=== PATIENT | male | born 1940 | race Caucasian/White ===

== ENCOUNTER 2025-02-01 00:11 | Inpatient (IN) | payer MEDICARE, MEDICAID, SELFPAY ==
[2025-02-01] VITALS (16 sets, daily range): BP systolic 95–173; BP diastolic 61–100; PULSE 58–73; RESP 15–20; TEMP 36.2–36.9; O2SAT 94–99; BMI 18.8; BMI 17.2
--- NOTE | 2025-02-01 00:21 | EKG12_ITS ---
Test Reason : CP Blood Pressure : */* mmHG Vent. Rate : 65 BPM Atrial Rate : 65 BPM P-R Int : 214 ms QRS Dur : 104 ms QT Int : 358 ms P-R-T Axes : * -41 -77 degrees QTcB Int : 372 ms Critical Test Result: STEMI Sinus rhythm with 1st degree A-V block Left axis deviation ST elevation consider lateral injury or acute infarct ACUTE MS / STEMI Abnormal ECG Confirmed by Zion Stokes ([id number]), editor managing newspaper ROHAN SALINAS ([id number]) on 02/01/2025 10:26:03 AM Referred By: Confirmed By: Zion Stokes
--- NOTE | 2025-02-01 00:22 | EDS_ITS ---
HPI History of Present Illness Chief Complaint: Chest Pain Informant: patient and EMS Narrative Narrative: 84-year-old male presenting from detention about 4-4.5 hours after he states chest heaviness started, inferior retrosternal without radiation to back, jaw, neck, arms, or any other symptoms; he denies any dyspnea, nausea, diaphoresis, focal neurologic symptoms. He states he was sitting in his chair when it started and it did not go away. EMS gave him aspirin as well as nitroglycerin, they state that when they evaluated him, his pain was 3/10. Now the patient states his discomfort is resolved. EMS states the patient has appeared well to them with stable vital signs. [facility] Medical History Personal history of COVID-19 Benign prostatic hyperplasia with lower urinary tract symptoms Bilateral inguinal hernia without obstruction or gangrene Essential (primary) hypertension Anemia, unspecified Repeated falls Muscle weakness (generalized) Generalized anxiety disorder Major depressive disorder, recurrent, unspecified Dementia in other diseases classified elsewhere, mild, with anxiety Abnormal weight loss Other specified hearing loss, unspecified ear Legal blindness, as defined in [place] Exudative age-related macular degeneration, right eye, stage unspecified Insomnia, unspecified Hypo-osmolality and hyponatremia Vitamin B12 deficiency anemia, unspecified Iron deficiency anemia, unspecified Difficulty in walking, not elsewhere classified Other halfway (current) drug therapy Encounter for screening for depression Dysphagia, oropharyngeal phase Unspecified dementia, moderate, with agitation Home Medications ?Medication ?Instructions ?Recorded ?Last Taken ?Type acetaminophen 500 mg tablet 500 mg PO Q6H PRN fever or pain 02/01/25 Unknown History (Acetaminophen Extra Strength) bisacodyl 10 mg rectal suppository 10 mg FL DAILY PRN constipation 02/01/25 Unknown History (Dulcolax (bisacodyl)) cholecalciferol (vitamin D3) 50 50 mcg PO DAILY Unknown History mcg (2,000 unit) capsule cyanocobalamin (vitamin B-12) 500 500 mcg PO DAILY 02/17 Unknown History mcg tablet lidocaine HCl 4 % topical pads 1 pad topical DAILY PRN PRN pain 02/01/25 Unknown History magnesium hydroxide 400 mg/5 mL 30 ml PO DAILY PRN con stipation 02/01/25 Unknown History oral suspension (Milk of Magnesia) potassium chloride 10 mEq 10 meq PO DAILY 02/01/25 Unk nown History tablet,extended release sertraline 25 mg tablet 25 mg PO QHS 02/01/25 Unknow n History sertraline 50 mg tablet 50 mg PO DAILY 02/01/25 Unkn own History tamsulosin 0.4 mg capsule 0.8 mg PO QHS 02/01/25 Unkno wn History Allergy/AdvReac Type Severity Reaction Status Date / Time No Known Allergies Allergy Verified 02/01/25 00:12 Social History (Updated 02/01/25 @ 00:[address] Anthony Pozo MD) housing: detention Smoking Status: Never smoker additional social history: ambulates w/ walker ROS ROS ED Constitutional Constitutional ED: Denies chills or fever(s) Eyes Eyes: Denies change in vision or diplopia ENT ENT ED: Denies rhinorrhea or sore throat Cardiovascular Cardiovascular: Reports as per HPI and chest pain; Denies palpitations or radiating jaw, neck or arm pain Respiratory/Chest Respiratory/Chest: Denies cough or dyspnea Gastrointestinal Gastrointestinal: Denies abdominal pain, diarrhea, nausea or vomiting Genitourinary Genitourinary ED: Denies dysuria or hematuria Musculoskeletal Musculoskeletal: Denies back pain or neck pain Integumentary Denies abscess or rash Neurologic Neurologic: Denies headache(s), paresthesias or weakness Psychiatric Psychiatric: Denies anxiety or suicidal thoughts EXAM Physical Exam Const Vital Signs: 02/01/25 00:12 02/01/25 00:16 02/01/25 00:21 Temperature 97.1 F L Temperature Source Axillary Pulse Rate 73 Respiratory Rate 18 Respiratory Effort Normal Non-Labored Blood Pressure 167/94 H Blood Pressure Mean 118 Pulse Ox 97 98 Oxygen Delivery Method Room Air Room Air 02/01/25 00:27 Temperature Temperature Source Pulse Rate 65 Respiratory Rate Respiratory Effort Blood Pressure 165/94 H Blood Pressure Mean Pulse Ox Oxygen Delivery Method Positive well nourished and well developed General Appearance ED: well developed and NAD HEENT Reports moist mucous membranes normocephalic and atraumatic Eyes PERRL and EOMs intact bilaterally Neck full ROM and supple Resp normal respiratory effort and clear to auscultation bilaterally Cardio regular rate, regular rhythm and no murmurs GI non-tender and non-distended Auscultation: normoactive bowel sounds Palpation: soft Back/Spine no CVA tenderness General Back: other FROM Extremity normal to inspection General Extremety ED: Negative for edema, pulses abnormal or tenderness General Extremity: Negative for edema or pulses abnormal Neuro oriented x3, CN's II-XII intact bilaterally and no sensory deficits noted Sensorium / Orientation: awake, alert, oriented to person, oriented to place and oriented to time Motor Exam: strength 5/5 throughout Psych mental status grossly normal Skin no rashes or lesions noted and no wounds Heart Score History: Highly Suspicious ECG: Significant ST-Depression Age: >/= 65 years Risk Factors: 1 or 2 Risk Factors (htn) Troponin: >1 - <3 Normal Limit Score: 8 MDM MDM MDM Narrative Medical decision making narrative: EKG is concerning for STEMI laterally, with less than [address] elevation in 1 and aVL, along with reciprocal depressions in the inferior leads at around 1 mm, and in leads V1-4 at anywhere from 0.5-1 mm. This was difficult to see on the prehospital EKG due to artifact, so prehospital STEMI was not called, but upon evaluating the patient obtaining an EKG in the ED, I discussed with the STEMI rolling chair pusher Dr. Leon, who reviewed the EKG that I sent to him, and given that the patient is pain-free, states that with less than [address] elevation in the limb leads does not meet criteria for STEMI at this time, he would recommend t reating him as an NSTEMI with a heart cath in the morning, and at this time placing him on heparin drip, and loading with Brilinta which we did in addition to Nitro-Bid paste. Initial troponin is up a little, the rest of his labs are noted he is not anemic. 1 view chest x-ray my interpretation shows nothing acute. Mediastinum does appear to be a little wide but it is a portable film and he does not have any symptoms suspicious of an aortic dissection. His blood pressure is elevated but not emergently so in the 160s. He is stable clinically hemodynamically discussed with hospitalist for admission to ICU. Lab Data Attestation: I reviewed the patient's lab results. Labs: Laboratory Results - last 24 hr 02/01/25 00:17 WBC 7.5 RBC 4.75 Hgb 14.4 Hct 43.4 MCV 91.4 MCH 30.3 MCHC 33.2 RDW Std Deviation 48.5 H RDW Coeff of Tez 14.4 Plt Count 173 MPV 9.6 Immature Gran % (Auto) 0.800 Neut % (Auto) 79.6 H Lymph % (Auto) 9.4 L [place] % (Auto) 8.8 Eos % (Auto) 0.9 Baso % (Auto) 0.5 Absolute Neuts (auto) 5.9 Absolute Lymphs (auto) 0.70 L Nucleated RBC % 0 PT 13.5 INR 1.0 APTT 35.6 Sodium 132 L Potassium 4.5 Chloride 96 L Carbon Dioxide 23.4 Anion Gap 12 BUN 9 Creatinine 0.80 Estim Creat Clear Calc 51.43 Est GFR (MDRD) Non-Af 87 BUN/Creatinine Ratio 11.3 Glucose 136 H Calcium 9.4 Troponin T High Sens 145 H* Rhythm Strip Rhythm Strip: Sinus Rhythm Rate: 65 Ectopy: None EKG Initial EKG: Attestation: I personally reviewed and interpreted this EKG as follows: Interpretation: Sinus Rhythm, S-T Elevation (I, aVL < 1mm) and S-T Depression (inf 1mm; V1-4 0.5-1mm) Prior EKG tracings: not available for review Prior: No Prior Management Discussion w/another healthcare provider: Hospitalist and Veterinary Virologist (cardiology Edward) Critical Care Time Critical Care Time: Yes Critical care time (excluding procedures): 30-74 minutes (41 min), Including time spent:, Discussing w/Patient &/or Family/Postal Clerk, Discussing w/Consultants, Arranging Admission or Transfer and Performing Direct Patient Care at Bedside Discharge Plan Triage Chief Complaint: Chest Pain ED Provider: Anthony Pozo Dx/Rx/DC Orders Clinical Impression: Non-ST elevation ID (NSTEMI) Prescriptions: No Action potassium chloride 10 mEq tablet extended release 10 meq PO DAILY sertraline 25 mg tablet 25 mg PO QHS tamsulosin 0.4 mg capsule 0.8 mg PO QHS sertraline 50 mg tablet 50 mg PO DAILY bisacodyl [Dulcolax (bisacodyl)] 10 mg suppository 10 mg FL DAILY PRN (Reason: constipation) lidocaine HCl 4 % pads, medicated 1 pad topical DAILY PRN PRN (Reason: pain) magnesium hydroxide [Milk of Magnesia] 400 mg/5 mL suspension 30 ml PO DAILY PRN (Reason: constipation) acetaminophen [Acetaminophen Extra Strength] 500 mg tablet 500 mg PO Q6H PRN (Reason: fever or pain) cyanocobalamin (vitamin B-12) 500 mcg tablet 500 mcg PO DAILY cholecalciferol (vitamin D3) 50 mcg (2,000 unit) capsule 50 mcg PO DAILY Primary Care Provider: Laly Cason Referrals: Sha Hancock MD [Non-Staff] - Print Language: Syriac
[2025-02-01] MEDS: Nitroglycerin Oint 1 INCH PACKET TD (00:27)
--- NOTE | 2025-02-01 00:30 | RAD_ITS ---
PROCEDURE: CHEST 1 VIEW (PORTABLE) 02/01/2025 REASON FOR EXAM: CHEST PAIN TECHNIQUE: Frontal view of the chest. FINDINGS: Poor inspiratory effort results in parenchymal crowding and limits evaluation. Patchy opacity in the right mid lung is concerning for airspace infiltrates. The heart is at the upper limit of normal in size. Severe degenerative changes are noted within both shoulders. RAD/Chest 1 View (Portable) IMPRESSION: As above. Reading Location: [id number]
[2025-02-01 00:31] LABS: Hematocrit 43.4 % (40-54); Hemoglobin 14.4 g/dL (13.0-16.5); Immature Granulocytes Count 0.060 X10^3/uL (0.0-0.0); Mean Corp Hgb Conc 33.2 g/dL (32-36); Mean Corpuscular Volume 91.4 fL (80-94); Mean Platelet Vol. 9.6 fl (6.2-12.0); NRBC Flagged by Analyzer 0 % (0-5); Platelet Count 173 K/mm3 (150-450); RBC Distribution Width CV 14.4 % (11.6-14.6); RBC Distribution Width SD 48.5 fl (35.1-43.9); Red Blood Count 4.75 M/mm3 (4.6-6.2); White Blood Count 7.5 K/mm3 (4.4-11.0)
[2025-02-01] MEDS: HEPARIN/D5w 25,000 UNITS 25,000 UNITS/250 ML IV.SOLN. 6.3 UNITS CONT INF (00:40)
[2025-02-01] MEDS: Heparin Injection (Vial) 5,000 UNIT/ML VIAL 3000 UNIT IV (00:40)
[2025-02-01] MEDS: TICAGRELOR 90 MG TABLET 180 MG PO (00:40)
[2025-02-01 00:52] LABS: Anion Gap 12 (5-15); BUN 9 mg/dL (4-19); BUN/Creat Ratio 11.3 RATIO (10-20); Calcium,Total 9.4 mg/dL (7.6-11.0); Carbon Dioxide 23.4 mmol/L (21.0-32.0); Chloride 96 mmol/L (98-108); Estimated Creatinine Clearance 51.43 ml/min (50-250); Glucose 136 mg/dL (70-99); Potassium 4.5 mmol/L (3.3-5.1); Troponin T High Sensitivity 145 ng/L (<=22)
[2025-02-01 00:59] LABS: Partial Thromboplast Time 35.6 Seconds (24.1-36.2); Prothrombin Time (Protime)PT. 13.5 SECONDS (11.7-14.9)
--- OUTSIDE RECORDS SUMMARY | 2025-02-01 01:01 | XMS RPT_ITS | CCD ---
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 Name Role Phone Sheets Ella LAZO Unavailable [phone] Sheets Ella LAZO Unavailable [phone] AVA NORRIS Referring Unavailable TORRES ERWIN Primary Care Unavailable CELINA LARA Consulting Unavailable JESSICA EDGE Admitting Unavailable JENA YOUNGBLOOD Attending Unavailable EDWARD HARDIN Attending Unavailable TORRES ERWIN Primary Care Unavailable Medications Completed/Discontinued Medications Medication Drug Class(es) Dates Sig (Normalized) Sig (Original) acetaminophen 325 mg oral tablet (3 sources) Start: 09-29-2021 take 2 tablets by mouth every six hours as needed acetaminophen (TYLENOL) 325 mg tablet Take 2 tablets by mouth every 6 hours as needed for pain. 30 tablet 0 09/29/2021 Active Start: 07-11-2016 take 2 tablets by [facility] every six hours as needed acetaminophen (TYLENOL) 325 mg tablet Take 2 tablets by mouth every 6 hours as needed for Pain. 0 07/11/2016 Active Comment on above: Take 2 tablets by [facility] every 6 hours as needed for Pain. aspirin 325 mg oral tablet (3 sources) Platelet Aggregation Inhibitor, Nonsteroidal Anti-inflammatory Drug take 1 tablet by mouth once daily aspirin 325 mg tablet Take 325 mg by mouth once daily. 0 Active Comment on above: Take 325 mg by mouth once daily. ferrous sulfate 325 mg oral tablet (3 sources) Start: 08-21-19 17 take 1 tablet by mouth twice daily at mealtime ferrous sulfate 325 mg (65 mg iron) tablet Take 1 tablet by mouth twice daily with meals. 60 tablet 2 08/20/2016 Active Comment on above: Take 1 tablet by [facility] twice daily with meals. lisinopril 20 mg oral tablet (4 sources) Angiotensin Converting Enzyme Inhibitor Start: 09-18-19 22 End: 02-29-20 take 1 tablet by mouth once daily lisinopril (ZESTRIL, PRINIVIL) 20 mg tablet Indications: Essential hypertension TAKE 1 TABLET BY MOUTH EVERY DAY 90 tablet 1 02/28/2022 Active Comment on above: TAKE 1 TABLET BY KUNAL TH EVERY DAY melatonin 1 mg oral tablet (3 sources) Start: 02-27-20 take 1 tablet by mouth once daily at bedtime melatonin 1 mg tablet Take 1 tablet by mouth daily at bedtime. 0 02/26/2021 Active Comment on above: Take 1 tablet by kunal th daily at bedtime. polyethylene glycol 3350 [id number] mg powder for oral solution (3 sources) Osmotic Laxative Start: 03-06-20 polyethylene glycol 3350 (MIRALAX, GLYCOLAX) 17 gram packet Take 1 Packet by mouth once daily. Dissolve dose in 4 - 8 ounces of liquid and take as directed. 0 03/06/2021 Active Comment on above: Take 1 Packet by kunal th once daily. Dissolve dose in 4 - 8 ounces of liquid and take as directed. 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; Translations: [Pressure ulcer of unspecified buttock, stage 1] Onset: 02-26-2021 02-27-2021 Chronic Coagulation and hemorrhagic disorders (3 sources) Platelet count below reference range; Translations: [Thrombocytopenia, unspecified] Onset: 02-27-2021 02-27-2021 Chronic E Codes: Fall (1 source) Unspecified fall, initial encounter; Translations: [Fall, initial encounter] Onset: 04-23-2022 Episodic Essential hypertension (6 sources) Essential hypertension; Translations: [Essential (primary) hypertension] Onset: 02-07-2015 Chronic Fluid and electrolyte disorders (7 sources) Hyponatremia; Translations: [Hypo-osmolality and hyponatremia] Onset: 02-26-2021 02-27-2021 Episodic Hyperplasia of prostate (4 sources) Nocturia due to benign prostatic hypertrophy; Translations: [Benign prostatic hyperplasia with lower urinary tract symptoms] Onset: 04-06-2020 02-27-2021 Chronic Malaise and fatigue (4 sources) Asthenia; Translations: [Weakness] Onset: 02-25-2021 02-27-2021 Episodic Nutritional deficiencies (3 sources) Undernutrition; Translations: [Unspecified protein-calorie malnutrition] Onset: 07-17-2016 02-27-2021 Chronic Other fractures (1 source) Wedge compression fracture of T11-T12 vertebra, initial encounter for closed fracture; Translations: [Compression fracture of T12 vertebra, initial encounter ([facility])] Onset: 04-23-2022 Episodic Other nervous system disorders (1 source) Metabolic encephalopathy; Translations: [Metabolic encephalopathy] Onset: 04-23-2022 Chronic Residual codes; unclassified (1 source) Personal history of other drug therapy; Translations: [COVID-19 vaccine series completed] Onset: 04-23-2022 Episodic Viral infection (1 source) COVID-19; Translations: [COVID-19] Onset: 04-23-2022 Past or Other Problems Problem Classification Problem Date Documented Da te Episodic/Chronic Genitourinary symptoms and ill-defined conditions (3 sources) Microscopic hematuria; Translations: [Other microscopic hematuria] Onset: 07-11-2016 07-11-2016 Episodic Neoplasms of unspecified nature or uncertain behavior (6 sources) Neoplasm of uncertain behavior of skin of foot; Translations: [Neoplasm of uncertain behavior of skin] Onset: 02-26-2021 02-27-2021 Episodic Open wounds of head; neck; and trunk (1 source) Laceration without foreign body of other part of head, initial encounter; Translations: [Facial laceration, initial encounter] Onset: 05-08-2022 Episodic Other skin disorders (3 sources) Eruption; Translations: [Rash and other nonspecific skin eruption] Onset: 02-26-2021 02-27-2021 Episodic Other skin disorders (3 sources) Nail deformity; Translations: [Other nail disorders] Onset: 02-26-2021 02-27-2021 Episodic Other skin disorders (3 sources) H/O: skin disorder; Translations: [Personal history of diseases of the skin and subcutaneous tissue] Onset: 02-26-2021 02-27-2021 Episodic Skull and face fractures (1 source) Fracture of nasal bones, initial encounter for open fracture; Translations: [Open fracture of nasal bone, initial encounter] Onset: 05-08-2022 Episodic Superficial injury; contusion (2 sources) Contusion of scalp, initial encounter; Translations: [Contusion of other part of head, initial encounter] Onset: 05-08-2022 Episodic Urinary tract infections (3 sources) Acute cystitis; Translations: [Acute cystitis without hematuria] Onset: 02-26-2021 02-27-2021 Episodic Results Test Name Value Interpretation Reference Range Facility CT BRAIN WO IVCONon 05-08-20 CT BRAIN WO IVCON * * *Final Report* * * DATE OF EXAM: May 07 2022 11:49PM [facility]504 - CT BRAIN WO IVCON / PROCEDURE REASON: Head trauma, moderate-severe * * * * Physician Interpretation * * * * EXAMINATION: CT CERVICAL SPINE WO IVCON, CT BRAIN WO IVCON, CT FACIAL BONE/CESILIA WO IVCON CLINICAL HISTORY: Spine fracture, cervical, traumatic (accession [id number]), Head trauma, moderate-severe (accession [id number]), Maxillofacial pain (accession [id number]) TECHNIQUE: Serial axial unenhanced images were obtained from the vertex to the foramen magnum. Spiral, high resolution axial unenhanced images were obtained from the skull base to the cervicothoracic junction with sagittal and coronal planar reconstructions. Spiral high resolution axial unenhanced images were also obtained through the facial bones with sagittal and coronal planar reconstructions. Dose-Length Product (DLP): 133.37 (accession [id number]), 993.15 (accession [id number]), 454.02 (accession [id number]) mGy*cm. CT Dose Reduction Employed: No dose reduction techniques were required COMPARISON: 04/17/[address] RESULT: BRAIN: Post-operative change: None. Acute change: No evidence of an acute infarct or other acute parenchymal process. Hemorrhage: No evidence of acute intracranial hemorrhage. Mass Lesion / Mass Effect: There is no evidence of an intracranial mass or extraaxial fluid collection. No significant mass effect. Chronic change: Patchy foci of low attenuation coefficient are present within the supratentorial white matter which is a nonspecific finding but likely represents moderate microvascular ischemia. Parenchyma: There is moderate generalized volume loss. Ventricles: The ventricles are within normal limits of size and configuration for age. Other: Posterior parietal and anterior frontal scalp hematomas without calvarial abnormality. FACIAL BONES: Soft Tissues: Anterior frontal scalp and anterior facial hematoma.. Facial bones: Bilateral mildly depressed nasal bone fractures Orbits: No evidence of an acute fracture. The globes are intact. The soft tissue planes of the orbits are maintained. Paranasal Sinuses: The paranasal sinuses are clear. Foreign Bodies: No evidence of radioopaque foreign bodies. Other: No evidence of a remote fracture. No lytic or blastic process seen in the facial bones. CERVICAL: Counting reference: Craniocervical junction. Anatomic Variants: None. Alignment: There is reversal of usual alignment centered at C5-C7, with 2 to 3 mm anterolisthesis C4 on 5 and C5 on C6, similar to the prior study.. Craniocervical junction: Craniocervical junction is normal. Osseous structures/fracture: No evidence of a lytic or blastic process in the visualized spine. No evidence of acute or chronic fracture. Cervical soft tissues: The paraspinal soft tissues planes are maintained. Degenerative changes: Multilevel degenerative disc and facet changes similar to the prior study, contributing to moderate to severe foraminal stenosis bilaterally C3-4 and on the right C4-5 and mild multilevel central stenosis. IMPRESSION: No acute intracranial abnormality. Posterior parietal scalp hematoma. Anterior frontal scalp and anterior facial soft tissue hematoma. Slightly depressed bilateral nasal bone fractures. No acute cervical abnormality. Degenerative changes described above. Worm Picker: AMANDA Transcribe Date/Time: May 08 2022 12:52A Dictated by : BRIANNE LEÓN MD This examination was interpreted and the report reviewed and electronically signed by: BRIANNE LEÓN MD on May 08 2022 1:04AM EST [id number] [facility] CT CERVICAL SPINE WO IVCONon 05-08-2022 CT CERVICAL SPINE WO IVCON * * *Final Report* * * DATE OF EXAM: May 07 2022 11:49PM [facility] [address] - CT CERVICAL SPINE WO IVCON / PROCEDURE REASON: Spine fracture, cervical, traumatic * * * * Physician Interpretation * * * * EXAMINATION: CT CERVICAL SPINE WO IVCON, CT BRAIN WO IVCON, CT FACIAL BONE/CESILIA WO IVCON CLINICAL HISTORY: Spine fracture, cervical, traumatic (accession [id number]), Head trauma, moderate-severe (accession [id number]), Maxillofacial pain (accession [id number]) TECHNIQUE: Serial axial unenhanced images were obtained from the vertex to the foramen magnum. Spiral, high resolution axial unenhanced images were obtained from the skull base to the cervicothoracic junction with sagittal and coronal planar reconstructions. Spiral high resolution axial unenhanced images were also obtained through the facial bones with sagittal and coronal planar reconstructions. Dose-Length Product (DLP): 133.37 (accession [id number]), 993.15 (accession [id number]), 454.02 (accession [id number]) mGy*cm. CT Dose Reduction Employed: No dose reduction techniques were required COMPARISON: 04/17/[address] RESULT: BRAIN: Post-operative change: None. Acute change: No evidence of an acute infarct or other acute parenchymal process. Hemorrhage: No evidence of acute intracranial hemorrhage. Mass Lesion / Mass Effect: There is no evidence of an intracranial mass or extraaxial fluid collection. No significant mass effect. Chronic change: Patchy foci of low attenuation coefficient are present within the supratentorial white matter which is a nonspecific finding but likely represents moderate microvascular ischemia. Parenchyma: There is moderate generalized volume loss. Ventricles: The ventricles are within normal limits of size and configuration for age. Other: Posterior parietal and anterior frontal scalp hematomas without calvarial abnormality. FACIAL BONES: Soft Tissues: Anterior frontal scalp and anterior facial hematoma.. Facial bones: Bilateral mildly depressed nasal bone fractures Orbits: No evidence of an acute fracture. The globes are intact. The soft tissue planes of the orbits are maintained. Paranasal Sinuses: The paranasal sinuses are clear. Foreign Bodies: No evidence of radioopaque foreign bodies. Other: No evidence of a remote fracture. No lytic or blastic process seen in the facial bones. CERVICAL: Counting reference: Craniocervical junction. Anatomic Variants: None. Alignment: There is reversal of usual alignment centered at C5-C7, with 2 to 3 mm anterolisthesis C4 on 5 and C5 on C6, similar to the prior study.. Craniocervical junction: Craniocervical junction is normal. Osseous structures/fracture: No evidence of a lytic or blastic process in the visualized spine. No evidence of acute or chronic fracture. Cervical soft tissues: The paraspinal soft tissues planes are maintained. Degenerative changes: Multilevel degenerative disc and facet changes similar to the prior study, contributing to moderate to severe foraminal stenosis bilaterally C3-4 and on the right C4-5 and mild multilevel central stenosis. IMPRESSION: No acute intracranial abnormality. Posterior parietal scalp hematoma. Anterior frontal scalp and anterior facial soft tissue hematoma. Slightly depressed bilateral nasal bone fractures. No acute cervical abnormality. Degenerative changes described above. Worm Picker: [email or web address] Transcribe Date/Time: May 08 2022 12:52A Dictated by : BRIANNE LEÓN MD This examination was interpreted and the report reviewed and electronically signed by: BRIANNE LEÓN MD on May 08 2022 1:04AM EST [id number] [facility] CT FACIAL BONE/CESILIA WO IVCON on 05-08-2022 CT FACIAL BONE/CESILIA WO IVCON * * *Final Report* * * DATE OF EXAM: May 07 2022 11:49PM [facility] 0507 - CT FACIAL BONE/CESILIA WO IVCON / PROCEDURE REASON: Maxillofacial pain * * * * Physician Interpretation * * * * EXAMINATION: CT CERVICAL SPINE WO IVCON, CT BRAIN WO IVCON, CT FACIAL BONE/CESILIA WO IVCON CLINICAL HISTORY: Spine fracture, cervical, traumatic (accession [id number]), Head trauma, moderate-severe (accession [id number]), Maxillofacial pain (accession [id number]) TECHNIQUE: Serial axial unenhanced images were obtained from the vertex to the foramen magnum. Spiral, high resolution axial unenhanced images were obtained from the skull base to the cervicothoracic junction with sagittal and coronal planar reconstructions. Spiral high resolution axial unenhanced images were also obtained through the facial bones with sagittal and coronal planar reconstructions. Dose-Length Product (DLP): 133.37 (accession [id number]), 993.15 (accession [id number]), 454.02 (accession [id number]) mGy*cm. CT Dose Reduction Employed: No dose reduction techniques were required COMPARISON: 04/17/[address] RESULT: BRAIN: Post-operative change: None. Acute change: No evidence of an acute infarct or other acute parenchymal process. Hemorrhage: No evidence of acute intracranial hemorrhage. Mass Lesion / Mass Effect: There is no evidence of an intracranial mass or extraaxial fluid collection. No significant mass effect. Chronic change: Patchy foci of low attenuation coefficient are present within the supratentorial white matter which is a nonspecific finding but likely represents moderate microvascular ischemia. Parenchyma: There is moderate generalized volume loss. Ventricles: The ventricles are within normal limits of size and configuration for age. Other: Posterior parietal and anterior frontal scalp hematomas without calvarial abnormality. FACIAL BONES: Soft Tissues: Anterior frontal scalp and anterior facial hematoma.. Facial bones: Bilateral mildly depressed nasal bone fractures Orbits: No evidence of an acute fracture. The globes are intact. The soft tissue planes of the orbits are maintained. Paranasal Sinuses: The paranasal sinuses are clear. Foreign Bodies: No evidence of radioopaque foreign bodies. Other: No evidence of a remote fracture. No lytic or blastic process seen in the facial bones. CERVICAL: Counting reference: Craniocervical junction. Anatomic Variants: None. Alignment: There is reversal of usual alignment centered at C5-C7, with 2 to 3 mm anterolisthesis C4 on 5 and C5 on C6, similar to the prior study.. Craniocervical junction: Craniocervical junction is normal. Osseous structures/fracture: No evidence of a lytic or blastic process in the visualized spine. No evidence of acute or chronic fracture. Cervical soft tissues: The paraspinal soft tissues planes are maintained. Degenerative changes: Multilevel degenerative disc and facet changes similar to the prior study, contributing to moderate to severe foraminal stenosis bilaterally C3-4 and on the right C4-5 and mild multilevel central stenosis. IMPRESSION: No acute intracranial abnormality. Posterior parietal scalp hematoma. Anterior frontal scalp and anterior facial soft tissue hematoma. Slightly depressed bilateral nasal bone fractures. No acute cervical abnormality. Degenerative changes described above. Worm Picker: AMANDA Transcribe Date/Time: May 08 2022 12:52A Dictated by : BRIANNE LEÓN MD This examination was interpreted and the report reviewed and electronically signed by: BRIANNE LEÓN MD on May 08 2022 1:04AM EST [id number] [facility] ED NOTEon 05-08-2022 ED NOTE HNO ID: [id number] Author: Sujey Iqbal RN Service: Emergency Medicine Author Type: Registered Nurse Type: ED Notes Filed: 05/08/2022 1:51 AM Note Text: Report to Corinne at [facility] ED NOTE HNO ID: [id number] Author: Sujey Iqbal RN Service: Emergency Medicine Author Type: Registered Nurse Type: ED Notes Filed: 05/08/2022 1:42 AM Note Text: Pressure dressing applied to top of head and dressing applied to nose. Bacitracin applied to abrasions on face. [facility] ED NOTE HNO ID: [id number] Author: Sujey Iqbal RN Service: Emergency Medicine Author Type: Registered Nurse Type: ED Notes Filed: 05/08/2022 1:13 AM Note Text: [facility] ETA 30 min [facility] ED NOTE HNO ID: [id number] Author: Charleen Goldstein RN Service: Nursing Author Type: Registered Nurse Type: ED Notes Filed: 05/07/2022 10:11 PM Note Text: Pt brought in by EMS for fall at [facility]. Pt was asked how he fell and he states I got too close to the floor It was reported that pt was sitting on bed and went to reach for something then fell, possibly into his dresser. Pt arrives in c-collar with large bandages on head with blood noted. Pt AANDOx4 with complaints of minimal pain in back. [facility] ED PROV NOTEon 05-08-2022 ED PROV NOTE HNO ID: [id number] Author: Edward Hardin MD Service: Emergency Medicine Author Type: Physician Type: ED Provider Notes Filed: 05/08/2022 5:18 AM Note Text: ED Provider Note Patient Name: Dane Martinez : 1940 SERVICE DATE: 05/07/22 History Patient presents with: Fall 81-year-old male patient presents emergency department. Patient's niece was in the room when I assessed him. Patient recently was admitted to nursing facility for care. She states tonight he leaned over the bed to pick something up and fell off of the bed causing lacerations and injuries to his face and head. She states patient is acting in his normal state. He is complaining of not having had a bowel movement today. He is not complaining of severe headache or vomiting. PAST MEDICAL HISTORY Diagnosis Date Anemia HTN (hypertension) 08/12/2014 Left inguinal hernia 04/02/2016 Recurrent right inguinal hernia 04/02/2016 PAST SURGICAL HISTORY Procedure Laterality Date EXC PILONID CYST SMPL 60 HERNIA REPAIR W/MESH 04/09/16 lap bilateral PAST SURGICAL HISTORY OF 2013 right inguinal hernia FAMILY HISTORY Problem Relation Age of Onset Coronary Artery Disease Sister 64 Diabetes Brother Hypertension Sister Hypertension Sister Heart Father Social History Tobacco Use Smoking status: Never Smokeless tobacco: Never Vaping Use Vaping Use: Never used Substance and Sexual Activity Alcohol use: No Drug use: No Sexual activity: Not on file ALLERGIES No Known Allergies Review of Systems Gastrointestinal: Positive for constipation. Skin: Positive for wound. All other systems reviewed and are negative. Physical Exam Vitals BP Pulse Temp Temp src Resp SpO2 Weight Height 05/07/22 2203 05/07/22 2203 05/07/22 2213 05/07/22 2213 05/07/223 05/07/22220205/07/222202 -- 158/91 86 36.3 ?C (97.4 ?F) Axillary 16 100 % 39 kg (86 lb) Physical Exam Vitals and nursing note reviewed. Constitutional: Appearance: He is well-developed. HENT: Head: Eyes: Extraocular Movements: Extraocular movements intact. Cardiovascular: Rate and Rhythm: Normal rate and regular rhythm. Heart sounds: Normal heart sounds. Pulmonary: Effort: No respiratory distress. Breath sounds: Normal breath sounds. Abdominal: General: Bowel sounds are normal. Palpations: Abdomen is soft. Tenderness: There is no abdominal tenderness. Musculoskeletal: General: Normal range of motion. Cervical back: Neck supple. No tenderness. Skin: General: Skin is warm and dry. Neurological: Mental Status: He is alert and oriented to person, place, and time. Mental status is at baseline. Diagnostic Testing ED Labs Ordered and Reviewed - No data to display LAC REPAIR Date/Time: 05/07/2022 11:43 PM Performed by: Edward Hardin MD Authorized by: Edward Hardin MD Risks discussed: Poor cosmetic result and infection Anesthesia (see MAR for exact dosages): Anesthesia method: Local infiltration Local anesthetic: Lidocaine 1% w/o epi Laceration details: Location: Face Face location: Forehead Length (cm): 3 Depth (mm): 3 Repair type: Repair type: Simple Pre-procedure details: Preparation: Patient was prepped and draped in usual sterile fashion Exploration: Hemostasis achieved with: Direct pressure Wound exploration: entire depth of wound probed and visualized Wound extent: no foreign body Contaminated: no Treatment: Area cleansed with: Saline Amount of cleaning: Standard Irrigation solution: Tap water Irrigation volume: 50 Irrigation method: Syringe Visualized foreign bodies/material removed: no Skin repair: Repair method: Sutures Suture size: 5-0 Suture material: Prolene Suture technique: Simple interrupted Number of sutures: 8 Approximation: Approximation: Close Post-procedure details: Dressing: Open (no dressing) LAC REPAIR Date/Time: 05/07/2022 11:51 PM Performed by: Edward Hardin MD Authorized by: Edward Hardin MD Risks discussed: Infection and poor cosmetic result Anesthesia (see MAR for exact dosages): Anesthesia method: Local infiltration Laceration details: Location: Face Face location: Nose Length (cm): 2 Depth (mm): 5 Repair type: Repair type: Simple Pre-procedure details: Preparation: Patient was prepped and draped in usual sterile fashion Exploration: Hemostasis achieved with: Direct pressure Wound extent: no foreign body Contaminated: no Treatment: Area cleansed with: Saline Amount of cleaning: Standard Irrigation solution: Tap water Irrigation volume: 50 Irrigation method: Syringe Visualized foreign bodies/material removed: no Skin repair: Repair method: Sutures Suture size: 3-0 Suture material: Prolene Suture technique: Simple interrupted Number of sutures: 3 Approximation: Approximation: Close Post-procedure details: Dressing: Open (no dressing) Patient tolerance of procedure: Tolerate (more content not included)... [facility] CASE MANAGEMon 04-23-2022 CASE MANAGEM HNO ID: [id number] Author: Gabi Erwin RN Service: ? Author Type: Registered Nurse Type: Care Mgt Progress Note Filed: 04/23/2022 2:11 PM Note Text: CARE MANAGEMENT DISCHARGE NOTE SERVICE DATE: 04/23/2022 SERVICE TIME: 2:09 PM LOS: 4 days Admission Date: 04/17/2022 DISCHARGE ARRANGEMENT (list agency and phone number) Discharge Arrangement: Intermediate Facility Was an expedited discharge program used?: No Provider Name: Emma LEACH CAREGIVER ASSESSMENT: Caregiver is ready, willing and able to meet the patient's needs as recommended by the inter-professional team:: Yes Patient's transition needs and plan for meeting these needs: DC to SNF HANDOFF COMMUNICATION: Handoff to: Primary Care Physician Primary Care Physician Name/Phone: Dr Erwin SOC sent TRANSPORTATION ARRANGEMENTS: Transportation Arrangements: Ambulance Transportation Agency and Phone #:: [facility] [phone] Date of Trip: 04/23/22 Time of Trip: 1430 Type of Service: BLS Non-emergency Is Patient Medicaid Pending?: No Was transportation financial coverage discussed with family?: Patient;Family Provider Network Analyst Location: [place] Destination: [facility] Financial Care Management Responsibility: None ADDITIONAL CONTACT RESOURCES: Irena Molina ([facility]) [phone] (M) Patient/family aware of dc order placed for today. Patient will dc to [facility]. MMT set for 2:30pm. SNF updated with time and orders. RN provided number to call report. CM called and spoke with Irena to notify of DC plan. SIGNATURE: Gabi Erwin RN PATIENT NAME: Dane Cueva Michelle DATE: April 23, 2022 TIME: 2:09 PM PAGER/CONTACT #: [phone] Normal [facility] CASE MANAGEM HNO ID: [id number] Author: Gabi Erwin RN Service: ? Author Type: Registered Nurse Type: Care Mgt Progress Note Filed: 04/23/2022 10:45 AM Note Text: CARE MANAGEMENT PROGRESS NOTE SERVICE DATE: 04/23/2022 SERVICE TIME: 10:43 AM LOS: 4 days IMM Follow Up Copy Given: Yes Copy given to:: Patient Method: In Person SIGNATURE: Gabi Erwin RN PATIENT NAME: Dane Cueva [facility] DATE: April 23, 2022 TIME: 10:43 AM PAGER/CONTACT #: [phone] [facility] CBC panel Auto (Bld)on 04-23 Erythrocyte distribution width (RBC) [Ratio] 14.2 % Normal 11.5-15.0 [facility] Comment on above: Order Comment: Speci men Type: BLOOD SPECIMENOrdering Facility: [facility] Address: [address] [place] [id number] Performed By: #### 5 8410-2 ####[facility]ORATORYCLIA [id number] [address] Hematocrit (Bld) [Volume fraction] 39.0 % Normal 39.0-51.0 [facility] Comment on above: Order Comment: Speci men Type: BLOOD SPECIMENOrdering Facility: [facility] Address: [address] [place] [address] Performed By: #### 5 8410-2 ####[facility]ATORYCL[facility] [id number] [address] [place] Hemoglobin (Bld) [Mass/Vol] 13.6 g/dL Normal 13.0-17.0 [facility] Comment on above: Order Comment: Speci men Type: BLOOD SPECIMENOrdering Facility: [facility] Address: [address] [place] [address] Performed By: #### 5 8410-2 ####[facility]ATORYCLIA [id number] [address] MCH (RBC) [Entitic mass] 31.4 pg Normal 26.0-34.0 [facility] Comment on above: Order Comment: Speci men Type: BLOOD SPECIMENOrdering Facility: [facility] Address: [address] [place] [address] Performed By: #### 5 8410-2 ####[facility]ATORYCLIA [id number] [address] MCHC (RBC) [Mass/Vol] 34.9 g/dL Normal 30.5-36.0 [facility] Comment on above: Order Comment: Speci men Type: BLOOD SPECIMENOrdering Facility: [facility] Address: [address] [place] [address] Performed By: #### 5 8410-2 ####[facility]ATORYCLIA [id number] [address] MCV (RBC) [Entitic vol] 90.1 fL Normal 80.0-100.0 [facility] Comment on above: Order Comment: Speci men Type: BLOOD SPECIMENOrdering Facility: [facility] Address: [address] [place] [address] Performed By: #### 5 8410-2 ####[facility]ORYCLIA [id number] [address] Nucleated RBC (Bld) [#/Vol] 10*3/uL Normal <0.01 [facility] Comment on above: Order Comment: Speci men Type: BLOOD SPECIMENOrdering Facility: [facility] Address: [address] [place] [address] Performed By: #### 5 8410-2 ####[facility]ORYCLIA [id number] [address] Platelet mean volume (Bld) [Entitic vol] 10.4 fL Normal 9.0-12.7 [facility] Comment on above: Order Comment: Speci men Type: BLOOD SPECIMENOrdering Facility: [facility] Address: [address] [place] [address] Performed By: #### 5 8410-2 ####[facility]ATORYCLIA [id number] [address] Platelets (Bld) [#/Vol] 103 10*3/uL Low 150-400 [facility] Comment on above: Order Comment: Speci men Type: BLOOD SPECIMENOrdering Facility: [facility] Address: [address] [place] [address] Result Comment: No c lot detected Performed By: #### 5 8410-2 ####[facility]ATORYCLIA [id number] [address] RBC (Bld) [#/Vol] 4.33 10*6/uL Normal 4.20-6.00 [facility] Comment on above: Order Comment: Speci men Type: BLOOD SPECIMENOrdering Facility: [facility] Address: [address] [place] [address] Performed By: #### 5 8410-2 ####[facility]ATORYCLIA [id number] [address] WBC (Bld) [#/Vol] 2.64 10*3/uL Low 3.70-11.00 [facility] Comment on above: Order Comment: Speci men Type: BLOOD SPECIMENOrdering Facility: [facility] Address: [place] [address] Performed By: #### 5 8410-2 ####[facility] LABORATORYCLIA [id number] [place] [address] [place] CNDSon 04-23-2022 CNDS HNO ID: [id number] Author: France Beck APRN.LUNCHEONETTE OPERATOR Service: Hospital Medicine Author Type: Nurse Practitioner Type: Discharge Summary Filed: 04/23/2022 1:03 PM Note Text: Attestation signed by Jena Youngblood MD at 04/23/2022 5:14 PM Attending Note The patient was not seen or examined by the attending. I have personally reviewed the PA/MULTI SITE LEASING CONSULTANT note. Agree with above assessment and plan. Other additions or changes: None SIGNATURE: Jena Youngblood MD DATE: April 23, 2022 TIME: 5:13 PM DISCHARGE SUMMARY PATIENT NAME: Dane Martinez ADMISSION DATE: 04/17/2022 DISCHARGE DATE: 04/23/2022 ATTENDING PHYSICIAN: Jena Youngblood MD Code Status: Not on file Highest Readmission Risk Score: 28 The 30 day readmissions risk score is derived from an internally validated risk model which evaluates patient level characteristics, utilization history, medication orders and lab results up until the day of discharge. Patients with a score of 40 or above are considered highest risk for readmission. Specific patient level drivers will be listed at the bottom of the summary. Treatment Team: Attending Provider: Jena Youngblood MD Consulting: Celina Lara MD Nurse Practitioner: France Beck APRN.LUNCHEONETTE OPERATOR Nurse Practitioner: Codie Mojica APRN.APOLLO REASON FOR HOSPITALIZATION: Fall, generalized weakness DIAGNOSIS: Principal Problem: Weakness POA: Yes Active Problems: Essential hypertension POA: Yes Hyponatremia POA: Yes Fall POA: Yes T12 compression fracture (HCC) POA: Yes COVID-19 POA: Yes COVID-19 vaccine series completed POA: Yes Resolved Problems: Metabolic encephalopathy POA: Yes OPERATIONS DURING HOSPITALIZATION: None PROCEDURES DURING HOSPITALIZATION: No procedures performed HOSPITAL COURSE: Dane Martinez is a 81 year old male with a past medical history of HTN, RADHA, and BPH who presented to the ER for evaluation after sustaining a mechanical fall at home. He complained of low back pain on presentation so CT lumbar spine obtained and showed moderate compression fx at T12 of indeterminate age. He was incidentally found to be covid positive. CXR with bibasilar atelectasis vs airspace dx. SpO2 high 90's on room air. Admitted to Medicine for further evaluation and management. Back pain was controlled with scheduled tylenol and lidocaine patches. Incidentally noted on COVID PCR+ 04/17/2022. Asymptomatic and not requiring any oxygen. dDimer elevated at [address] chest negative for PE. ID consulted and felt that he would benefit from 3 day course of prophylactic Remdesivir- last dose on 04/20. He remained hemodynamically stable on room air. PT/OT evaluations obtained recommending SNF at discharge. He was found to have mild hyponatremia that is chronic and likely 2/2 low solute diet. Discharged in stable condition to [facility]. Transitions of Care Critical Issues: - BMP in 3 days LABS AND PROCEDURES PENDING AT DISCHARGE: No pending results. PATIENT CONDITION AT DISCHARGE: Stable DISCHARGE DISPOSITION: Intermediate Facility Discharge Physical Exam: VITAL SIGNS: BP 123/61 Pulse (!) 57 Temp 36.5 ?C (97.7 ?F) (Oral) Resp 18 Wt 42.6 kg (93 lb 14.7 oz) SpO2 100% BMI 17.75 kg/m? GENERAL: Alert, no distress, cooperative. He is hard of hearing SKIN: No rashes or lesions. HEAD/SINUSES: No significant findings. AT/NC EYES: Anicteric sclera, EOMI OROPHARYNX: MMM LUNGS: Lungs clear to auscultation, good diaphragmatic excursion, he is speaking in full sentences CARDIAC: Normal S1 and S2; no rubs, murmurs, or gallops ABDOMEN: Abdomen soft, non-tender, BS present EXTREMITIES: No edema or vascular discoloration WOUND/SURGICAL SITE CARE: None DIET: Resume pre-hospital diet ACTIVITY: Resume pre-hospital activity ALLERGIES No Known Allergies DISCHARGE MEDICATION: Current Discharge Medication List START taking these medications lidocaine (SALONPAS) 2 Patches Apply 2 Patches as directed once daily. CONTINUE these medications which have NOT CHANGED aspirin, enteric coated (ASPIRIN, ENTERIC COATED) 81 mg Take 81 mg by mouth once daily. lisinopril (ZESTRIL, PRINIVIL) 20 mg tablet TAKE 1 TABLET BY MOUTH EVERY DAY Qty: 90 tablet Refills: 1 Comments: DX Code Needed PLEASE REFILL. Associated Diagnoses:Essential hypertension tamsulosin (FLOMAX) 0.4 mg TAKE 2 CAPSULES BY MOUTH EVERY DAY Qty: 180 capsule Refills: 1 Associated Diagnoses:Benign prostatic hyperplasia with nocturia polyethylene glycol 3350 (MIRALAX, GLYCOLAX) 17 g Take 17 g by mouth once daily. class=HTML_HHS> Dissolve dose in 4 - 8 ounces of liquid and take as directed. melatonin 1 mg Take 1 mg by mouth daily at bedtime. acetaminophen (TYLENOL) 650 mg Take 650 mg by mouth every 6 hours as needed for pain. Q (more content not included)... [facility] CONSULT PROGon 04-23-2022 CONSULT PROG HNO ID: [id number] Author: Celina Lara MD Service: Infectious Disease Author Type: Physician Type: Consult Progress Note Filed: 04/23/2022 8:56 PM Note Text: INFECTIOUS DISEASE PROGRESS NOTE Patient Name: Dane Martinez INTERVAL HISTORY: Seen and examined Resting comfortably in bed, NAD No fevers or leukocytosis Vitals reviewed and stable On RA, sats >94% Patient Active Hospital Problem List: Weakness (02/25/2021) Essential hypertension (02/07/2015) Hyponatremia (02/26/2021) Fall (04/17/2022) T12 compression fracture (HCC) (04/17/2022) COVID-19 (04/17/2022) COVID-19 vaccine series completed (04/17/2022) Impression/Recommendati ons Principal Problem: Acute metabolic encephalopathy Generalized weakness Hyponatremia T12 compression fracture COVID-19 infection Fully vaccinated for COVID Plan Completed 3 days of ppx Remdesivir Monitor off of antibiotics Urine cultures without growth Follow fevers, counts and O2 status ID will follow. Noted dc plans to SNF- awaiting pre cert MEDICATIONS: reviewed. No current facility-administered medications for this encounter. Facility-Administered Medications Ordered in Other Encounters Medication Dose Route Frequency acetaminophen 1,000 mg tab(s) (TYLENOL) 1,000 mg ORAL q 8 H [START ON 04/24/2022] lisinopril 20 mg tab(s) (ZESTRIL, PRINIVIL) 20 mg ORAL DAILY ferrous sulfate 325 mg tab(s) 325 mg ORAL q 48 H [START ON 04/24/2022] polyethylene glycol 3350 17 g packet (MIRALAX, GLYCOLAX) 17 g ORAL DAILY melatonin 1 mg tab(s) 1 mg ORAL AT BEDTIME [START ON 04/24/2022] aspirin, enteric coated 81 mg tab(s) 81 mg ORAL DAILY lidocaine 4 % 2 Patch (SALONPAS) 2 Patch TRANSDERMAL DAILY [START ON 04/24/2022] enoxaparin 40 mg injection (LOVENOX) 40 mg SUBCUTANEOUS q 24 HR aluminum-magnesium hydroxide-simethicone 200-200-20 mg/5 mL 30 mL (MAALOX,MYLANTA,MAG-AL PLUS) 30 mL ORAL DAILY PRN ondansetron 4 mg tab(s) (ZOFRAN) 4 mg ORAL q 8 H PRN senna-docusate 8.6-50 mg 1 tablet (SENNA-S) 1 tablet ORAL BID PRN traMADol 50 mg tab(s) (ULTRAM) 50 mg ORAL q 8 H PRN [START ON 04/24/2022] lidocaine patch - REMOVE OTHER DAILY And lidocaine - VERIFY PATCH OTHER q 8 H [START ON 04/24/2022] tamsulosin 0.8 mg cap(s) (FLOMAX) 0.8 mg ORAL DAILY PHYSICAL EXAM: Vital signs: BP 123/61 Pulse (!) 57 Temp 36.5 ?C (97.7 ?F) (Oral) Resp 18 Wt 42.6 kg (93 lb 14.7 oz) SpO2 100% BMI 17.75 kg/m? Temp (24hrs), Av.3 ?C (97.4 ?F), Min:36.2 ?C (97.2 ?F), Max:36.5 ?C (97.7 ?F) General: alert, oriented, NAD Lungs: bilaterally clear to auscultation Heart: regular rate and rhythm Abdomen: soft, non tender, non distended, BS+ Extremities: no edema No rashes No joint inflammation Neck supple Lines ok No CVAT Labs: Recent Labs 04/23/22 0602 04/22/22 0447 04/21/22 0553 WBC 2.64* 2.98* 2.64* HB 13.6 13.1 12.5* HCT 39.0 38.5* 36.7* PLT 103* 111* 108* NA 129* 127* 130* K 4.2 4.3 4.4 CHLOR 94* 93* 99 CO2 27 23 21* BUN 10 11 15 CREAT 0.71* 0.62* 0.61* Microbiology data: reviewed Imaging data: reviewed Celina Lara MD [phone] 04/23/2022 12:36 PM Normal [facility] Comprehensive metabolic 2000 panelon 04-23-2022 Albumin [Mass/Vol] 3.5 g/dL Low 3.9-4.9 [facility] Comment on above: Order Comment: Speci grant Type: BLOOD SPECIMEN [facility] Address: [address] [place] [address] Performed By: #### 4 8065-7 #### [facility] CLIA [id number] [address] ALP [Catalytic activity/Vol] 92 U/L Normal 38-113 [facility] Comment on above: Order Comment: Speci men Type: BLOOD SPECIMEN [facility] Address: [address] [place] [address] Performed By: #### 4 8065-7 #### [facility] CLIA [id number] [address] ALT [Catalytic activity/Vol] 17 U/L Normal 10-54 [facility] Comment on above: Order Comment: Speci men Type: BLOOD SPECIMEN [facility] Address: [address] [address] Performed By: #### 4 8065-7 #### [facility] CLIA [id number] [address] [place] [facility] Anion gap [Moles/Vol] 8 mmol/L Low 9-18 [facility] Comment on above: Order Comment: Speci men Type: BLOOD SPECIMEN [facility] Address: [address] [address] Performed By: #### 4 8065-7 #### [facility] CLIA [id number] [address] [place] [address] [place] AST [Catalytic activity/Vol] 32 U/L Normal 14-40 [facility] Comment on above: Order Comment: Speci men Type: BLOOD SPECIMEN [facility] Address: [address] [place] [address] Performed By: #### 4 8065-7 #### [facility] CLIA [id number] [address] [place] [address] [place] Bilirubin [Mass/Vol] 0.5 mg/dL Normal 0.2-1.3 [facility] Comment on above: Order Comment: Speci men Type: BLOOD SPECIMEN [facility] Address: [address] [place] [address] Performed By: #### 4 8065-7 #### [facility] CLIA [id number] [address] [place] Calcium [Mass/Vol] 8.4 mg/dL Low 8.5-10.2 [facility] Comment on above: Order Comment: Speci men Type: BLOOD SPECIMEN [facility] Address: [address] [address] Performed By: #### 4 8065-7 #### [facility] CLIA [id number] [address] [place] [address] [place] Chloride [Moles/Vol] 94 mmol/L Low 97-105 [facility] Comment on above: Order Comment: Speci men Type: BLOOD SPECIMEN [facility] Address: [address] [address] Performed By: #### 4 8065-7 #### [facility] CLIA [id number] [address] CO2 [Moles/Vol] 27 mmol/L Normal 22-30 [facility] Comment on above: Order Comment: Speci men Type: BLOOD SPECIMEN [facility] Address: [address] [place] [address] Performed By: #### 4 8065-7 #### [facility] CLIA [id number] [address] Creatinine [Mass/Vol] 0.71 mg/dL Low 0.73-1.22 [facility] Comment on above: Order Comment: Speci men Type: BLOOD SPECIMEN [facility] Address: [address] [place] [address] Performed By: #### 4 8065-7 #### [facility] CLIA [id number] [address] ESTIMATED GLOMERULAR FILTRATION RATE 92 mL/min/1.73m??? Normal >=60 [facility] Comment on above: Order Comment: Harvey men Type: BLOOD SPECIMEN [facility] Address: [address] [place] [address] Result Comment: Silvia mated Glomerular Filtration Rate (eGFR) is calculated using the 2020 CKD-EPI creatinine equation. This equation utilizes serum creatinine, sex, and age as parameters. The creatinine assay has traceable calibration to isotope dilution-mass spectrometry. Refer to KDIGO guidelines for clinical interpretation. In patients with unstable renal function, e.g. those with acute kidney injury, the eGFR may not accurately reflect actual GFR. Performed By: #### 4 8065-7 #### [facility] CLIA [id number] [address] Glucose [Mass/Vol] 85 mg/dL Normal 74-99 [facility] Comment on above: Order Comment: Speci men Type: BLOOD SPECIMEN [facility] Address: [address] [place] [address] Result Comment: The [place] Diabetes Association (ADA) provides guidance for cutoff values for fasting glucose and random glucose. The ADA defines fasting as no caloric intake for at least 8 hours. Fasting plasma glucose results between 100 to 125 mg/dL indicate increased risk for diabetes (prediabetes). Fasting plasma glucose results greater than or equal to 126 mg/dL meet the criteria for diagnosis of diabetes. In the absence of unequivocal hyperglycemia, results should be confirmed by repeat testing. In a patient with classic symptoms of hyperglycemia or hyperglycemic crisis, random plasma glucose results greater than or equal to 200 mg/dL meet the criteria for diagnosis of diabetes. Reference: Standards of Medical Care in Diabetes 2016, [place] Diabetes Association. Diabetes Care. 2016.39(Suppl 1). Performed By: #### 4 8065-7 #### [facility] CLIA [id number] [address] [place] [facility] Potassium [Moles/Vol] 4.2 mmol/L Normal 3.7-5.1 [facility] Comment on above: Order Comment: Harvey burns Type: BLOOD SPECIMEN [facility] Address: [address] [address] Performed By: #### 4 8065-7 #### [facility] CLIA [id number] [address] [place] [address] [place] Protein [Mass/Vol] 6.4 g/dL Normal 6.3-8.0 [facility] Comment on above: Order Comment: Harvey burns Type: BLOOD SPECIMEN [facility] Address: [address] [address] Performed By: #### 4 8065-7 #### [facility] CLIA [id number] [address] [place] [address] [place] Sodium [Moles/Vol] 129 mmol/L Low 136-144 [facility] Comment on above: Order Comment: Harvey burns Type: BLOOD SPECIMEN [facility] Address: [address] [address] Performed By: #### 4 8065-7 #### [facility] CLIA [id number] [address] [place] [address] [place] Urea nitrogen [Mass/Vol] 10 mg/dL Normal 9-24 [facility] Comment on above: Order Comment: Speci men Type: BLOOD SPECIMEN [facility] Address: [address] [place] [address] Performed By: #### 4 8065-7 #### [facility] CLIA [id number] [address] [place] Magnesium SerPl-mCncon 04-23 Magnesium [Mass/Vol] 2.0 mg/dL Normal 1.7-2.3 [facility] Comment on above: Order Comment: Speci men Type: BLOOD SPECIMEN [facility] Address: [address] [place] [address] Performed By: #### 4 8065-7 #### [facility] CLIA [id number] [address] [place] NURSING PROGon 04-23-2022 NURSING PROG HNO ID: [id number] Author: Lola Vences RN Service: Nursing Author Type: Registered Nurse Type: Nursing Progress Note Filed: 04/23/2022 3:32 PM Note Text: Other: 1532: Discharge instructions reviewed with [facility]. No further questions voiced. Phone number provided to nurse if questions arise. Awaiting transport for discharge which was scheduled for 1430. Normal [facility] Osmolality Uron 04-23-2022 Osmolality (U) [Osmolality] 311 mosm/kg Normal 50-1200 [facility] Comment on above: Order Comment: Speci men Type: URINE SPECIMENOrdering Facility: [facility] Address: [address] [place] [address] Performed By: #### 3 5678-2, 2695-5 ####[facility] LABCLIA [id number] [facility] [id number] [address] [place] Sodium ?Tm Ur-sCncon 022 Sodium Unsp time (U) [Moles/Vol] 73 mmol/L Normal 14-216 [facility] Comment on above: Order Comment: Speci men Type: URINE SPECIMENOrdering Facility: [facility] Address: [address] [place] [address] Performed By: #### 3 5678-2, 2695-5 ####[facility] LABCLIA [id number] [facility] [id number] [place] CASE MANAGEMon 04-22-2022 CASE MANAGEM HNO ID: [id number] Author: Gabi Erwin RN Service: ? Author Type: Registered Nurse Type: Care Mgt Progress Note Filed: 04/22/2022 1:11 PM Note Text: CARE MANAGEMENT PROGRESS NOTE SERVICE DATE: 04/22/2022 SERVICE TIME: 9:58 AM LOS: 3 days Needs Prior to Discharge: Insurance Authorization;OT/PT Evaluation;Accepting Facility;Discharge Transportation;Other: See Comment (medical clearance) Patient/Niece requesting [facility] as FOC. [facility] waiting to review pending PT eval. CM notified therapy, updated notes will be needed for precert. 1:00pm- [facility] SIGNATURE: Gabi Erwin RN PATIENT NAME: Dane Martinez DATE: April 22, 2022 TIME: 9:57 AM PAGER/CONTACT #: [phone] Normal [facility] CBC panel Auto (Bld)on 04-22 Erythrocyte distribution width (RBC) [Ratio] 14.3 % Normal 11.5-15.0 [facility] Comment on above: Order Comment: Harvey burns Type: BLOOD SPECIMENOrdering Facility: [facility] Address: [address] [place] [address] Performed By: #### 5 8410-2 ####[facility]CL[facility] [id number] [address] [place] Hematocrit (Bld) [Volume fraction] 38.5 % Low 39.0-51.0 [facility] Comment on above: Order Comment: Harvey burns Type: BLOOD SPECIMENOrdering Facility: [facility] Address: [address] [place] [address] Performed By: #### 5 8410-2 ####[facility]ORYCLIA [id number] [place] [address] [place] Hemoglobin (Bld) [Mass/Vol] 13.1 g/dL Normal 13.0-17.0 [facility] Comment on above: Order Comment: Speci men Type: BLOOD SPECIMENOrdering Facility: [facility] Address: [address] [place] [address] Performed By: #### 5 8410-2 ####[facility]ORYCLIA [id number] [address] [place] [facility] MCH (RBC) [Entitic mass] 31.2 pg Normal 26.0-34.0 [facility] Comment on above: Order Comment: Speci men Type: BLOOD SPECIMENOrdering Facility: [facility] Address: [address] [address] Performed By: #### 5 8410-2 ####[facility]ORYCL[facility] [id number] [address] [place] MCHC (RBC) [Mass/Vol] 34.0 g/dL Normal 30.5-36.0 [facility] Comment on above: Order Comment: Speci men Type: BLOOD SPECIMENOrdering Facility: [facility] Address: [address] [place] [address] Performed By: #### 5 8410-2 ####[facility] LABORATORYCLIA [id number] [address] STATES [facility] MCV (RBC) [Entitic vol] 91.7 fL Normal 80.0-100.0 [facility] Comment on above: Order Comment: Speci men Type: BLOOD SPECIMENOrdering Facility: [facility] Address: [address] [address] Performed By: #### 5 8410-2 ####[facility] LABORATORYCLIA [id number] [address] Nucleated RBC (Bld) [#/Vol] 10*3/uL Normal <0.01 [facility] Comment on above: Order Comment: Speci men Type: BLOOD SPECIMENOrdering Facility: [facility] Address: [address] [place] [address] Performed By: #### 5 8410-2 ####[facility] LABORATORYCLIA [id number] [address] Platelet mean volume (Bld) [Entitic vol] 10.5 fL Normal 9.0-12.7 [facility] Comment on above: Order Comment: Speci men Type: BLOOD SPECIMENOrdering Facility: [facility] Address: [address] [place] [address] Performed By: #### 5 8410-2 ####[facility] LABORATORYCLIA [id number] [address] [place] Platelets (Bld) [#/Vol] 111 10*3/uL Low 150-400 [facility] Comment on above: Order Comment: Speci men Type: BLOOD SPECIMENOrdering Facility: [facility] Address: [address] [place] [address] Result Comment: No c lot detected Performed By: #### 5 8410-2 ####[facility]ORATORYCLIA [id number] [address] RBC (Bld) [#/Vol] 4.20 10*6/uL Normal 4.20-6.00 [facility] Comment on above: Order Comment: Speci men Type: BLOOD SPECIMENOrdering Facility: [facility] Address: [address] [place] [address] Performed By: #### 5 8410-2 ####[facility] LABORATORYCLIA [id number] [address] WBC (Bld) [#/Vol] 2.98 10*3/uL Low 3.70-11.00 [facility] Comment on above: Order Comment: Speci men Type: BLOOD SPECIMENOrdering Facility: [facility] Address: [address] [place] [address] Performed By: #### 5 8410-2 ####[facility] LABORATORYCLIA [id number] [address] CONSULT PROGon 04-22-2022 CONSULT PROG HNO ID: [id number] Author: Celina Lara MD Service: Infectious Disease Author Type: Physician Type: Consult Progress Note Filed: 04/22/2022 7:36 PM Note Text: INFECTIOUS DISEASE PROGRESS NOTE Patient Name: Dane Martinez INTERVAL HISTORY: Seen and examined Resting comfortably in bed, NAD No fevers or leukocytosis Vitals reviewed and stable On RA, sats >94% Patient Active Hospital Problem List: Weakness (02/25/2021) Essential hypertension (02/07/2015) Hyponatremia (02/26/2021) Fall (04/17/2022) T12 compression fracture (HCC) (04/17/2022) COVID-19 (04/17/2022) COVID-19 vaccine series completed (04/17/2022) Metabolic encephalopathy (04/17/2022) Impression/Recommendati ons Principal Problem: Acute metabolic encephalopathy Generalized weakness Hyponatremia T12 compression fracture COVID-19 infection Fully vaccinated for COVID Plan Completed 3 days of ppx Remdesivir Monitor off of antibiotics Urine cultures without growth Follow fevers, counts and O2 status ID will follow. Noted dc plans to SNF- awaiting pre cert MEDICATIONS: reviewed. Current Facility-Administered Medications Medication Dose Route Frequency acetaminophen 1,000 mg tab(s) (TYLENOL) 1,000 mg ORAL q 8 H heparin 5,000 Units injection 5,000 Units SUBCUTANEOUS q 12 H NaCl 0.9% iv flush bag 20 mL INTRAVENOUS PRN sodium chloride 0.9 % (flush) 3-5 mL (BD POSIFLUSH) 3-5 mL INTRAVENOUS q 12 H lidocaine 4 % 2 Patch (SALONPAS) 2 Patch TRANSDERMAL DAILY AT 9 PM And lidocaine patch - REMOVE OTHER DAILY And lidocaine - VERIFY PATCH OTHER q 8 H guaiFENesin 600 mg ER tab(s) (MUCINEX) 600 mg ORAL q 12 H PRN albuterol HFA 90 mcg/actuation 2 Puff (PROVENTIL HFA, VENTOLIN HFA) 2 Puff INHALATION q 4 H PRN tamsulosin 0.4 mg cap(s) (FLOMAX) 0.4 mg ORAL DAILY ferrous sulfate 325 mg tab(s) 325 mg ORAL DAILY WITH BREAKFAST iv contrast (radiology procedure) INTRAVENOUS DIRECTED PRN aspirin 325 mg tab(s) 325 mg ORAL DAILY PHYSICAL EXAM: Vital signs: BP 128/70 Pulse (!) 51 Temp 36.2 ?C (97.2 ?F) (Oral) Resp 18 Wt 42.6 kg (93 lb 14.7 oz) SpO2 97% BMI 17.75 kg/m? Temp (24hrs), Av.3 ?C (97.4 ?F), Min:36.2 ?C (97.2 ?F), Max:36.5 ?C (97.7 ?F) General: alert, oriented, NAD Lungs: bilaterally clear to auscultation Heart: regular rate and rhythm Abdomen: soft, non tender, non distended, BS+ Extremities: no edema No rashes No joint inflammation Neck supple Lines ok No CVAT Labs: Recent Labs 04/22/22 0447 04/21/22 0553 04/20/22 0546 WBC 2.98* 2.64* 2.11* HB 13.1 12.5* 11.5* HCT 38.5* 36.7* 33.9* PLT 111* 108* 106* NA 127* 130* 131* K 4.3 4.4 3.5* CHLOR 93* 99 101 CO2 23 21* 20* BUN 11 15 16 CREAT 0.62* 0.61* 0.62* Microbiology data: reviewed Imaging data: reviewed Cesia Conley, PRIMARY CARE PEDIATRICIAN-APOLLO [place] [facility] [phone] April 22, 2022 9:07 AM I personally saw and evaluated the patient. I reviewed the AUTOMATED CUTTING MACHINE OPERATOR Hx, exam and MDM and I agree with the AUTOMATED CUTTING MACHINE OPERATOR assessment and plan unless otherwise addended above. Celina Lara MD [phone] 04/22/2022 12:36 PM Normal [facility] Comprehensive metabolic 2000 panelon 04-22-2022 Albumin [Mass/Vol] 3.2 g/dL Low 3.9-4.9 [facility] Comment on above: Order Comment: Harvey burns Type: BLOOD SPECIMEN [facility] Address: [address] [id number] Performed By: #### 2 4323-8, 21827-4 #### [facility] CLIA [id number] [address] [place] [address] [place] ALP [Catalytic activity/Vol] 88 U/L Normal 38-113 [facility] Comment on above: Order Comment: Harvey burns Type: BLOOD SPECIMEN [facility] Address: [address] [place], [place] [id number] Performed By: #### 2 432-8, 92091-1 #### [facility] CLIA [id number] [address] [place] [address] [place] ALT [Catalytic activity/Vol] 12 U/L Normal 10-54 [facility] Comment on above: Order Comment: Speci men Type: BLOOD SPECIMEN [facility] Address: [address] [place] [address] Performed By: #### 2 8, #### [facility] CLIA [id number] [address] [place] [address] [place] Anion gap [Moles/Vol] 11 mmol/L Normal 9-18 [facility] Comment on above: Order Comment: Speci men Type: BLOOD SPECIMEN [facility] Address: [address] [address] Performed By: #### 2 8, #### [facility] CLIA [id number] [address] [place] AST [Catalytic activity/Vol] 25 U/L Normal 14-40 [facility] Comment on above: Order Comment: Speci men Type: BLOOD SPECIMEN [facility] Address: [address] [address] Performed By: #### 2 8, #### [facility] CLIA [id number] [address] [place] [address] [place] Bilirubin [Mass/Vol] 0.4 mg/dL Normal 0.2-1.3 [facility] Comment on above: Order Comment: Speci men Type: BLOOD SPECIMEN [facility] Address: [address] [address] Performed By: #### 2 4328, #### [facility] CLIA [id number] [address] [place] Calcium [Mass/Vol] 8.0 mg/dL Low 8.5-10.2 [facility] Comment on above: Order Comment: Speci men Type: BLOOD SPECIMEN [facility] Address: [address] [address] Performed By: #### 2 4323-8, #### [facility] CLIA [id number] [address] Chloride [Moles/Vol] 93 mmol/L Low 97-105 [facility] Comment on above: Order Comment: Speci men Type: BLOOD SPECIMEN [facility] Address: [address] [place] [address] Performed By: #### 2 4323-8, #### [facility] CLIA [id number] [address] CO2 [Moles/Vol] 23 mmol/L Normal 22-30 [facility] Comment on above: Order Comment: Truei grant Type: BLOOD SPECIMEN [facility] Address: [address] [place] [address] Performed By: #### 2 4323-8, #### [facility] CLIA [id number] [address] [facility] Creatinine [Mass/Vol] 0.62 mg/dL Low 0.73-1.22 [facility] Comment on above: Order Comment: Truei men Type: BLOOD SPECIMEN [facility] Address: [address] [place] [address] Performed By: #### 2 4323-8, #### [facility] CLIA [id number] [address] ESTIMATED GLOMERULAR FILTRATION RATE 96 mL/min/1.73m??? Normal >=60 [facility] Comment on above: Order Comment: Speci men Type: BLOOD SPECIMEN [facility] Address: [address] [place] [address] Result Comment: Silvia mated Glomerular Filtration Rate (eGFR) is calculated using the 2020 CKD-EPI creatinine equation. This equation utilizes serum creatinine, sex, and age as parameters. The creatinine assay has traceable calibration to isotope dilution-mass spectrometry. Refer to KDIGO guidelines for clinical interpretation. In patients with unstable renal function, e.g. those with acute kidney injury, the eGFR may not accurately reflect actual GFR. Performed By: #### 2 4323-8, #### [facility] CLIA [id number] [address] [place] [address] [place] Glucose [Mass/Vol] 76 mg/dL Normal 74-99 [facility] Comment on above: Order Comment: Harvey burns Type: BLOOD SPECIMEN [facility] Address: [address] [place] [address] Result Comment: The [place] Diabetes Association (ADA) provides guidance for cutoff values for fasting glucose and random glucose. The ADA defines fasting as no caloric intake for at least 8 hours. Fasting plasma glucose results between 100 to 125 mg/dL indicate increased risk for diabetes (prediabetes). Fasting plasma glucose results greater than or equal to 126 mg/dL meet the criteria for diagnosis of diabetes. In the absence of unequivocal hyperglycemia, results should be confirmed by repeat testing. In a patient with classic symptoms of hyperglycemia or hyperglycemic crisis, random plasma glucose results greater than or equal to 200 mg/dL meet the criteria for diagnosis of diabetes. Reference: Standards of Medical Care in Diabetes 2016, [place] [employer] Association. Diabetes Care. 2016.39(Suppl 1). Performed By: #### 2 4323-8, #### [facility] CLIA [id number] [address] [place] [address] [place] Potassium [Moles/Vol] 4.3 mmol/L Normal 3.7-5.1 [facility] Comment on above: Order Comment: Harvey burns Type: BLOOD SPECIMEN [facility] Address: [address] [address] Performed By: #### 2 4323-8, #### [facility] CLIA [id number] [address] [place] [address] [place] Protein [Mass/Vol] 6.0 g/dL Low 6.3-8.0 [facility] Comment on above: Order Comment: Harvey burns Type: BLOOD SPECIMEN [facility] Address: [address] [place] [address] Performed By: #### 2 4323-8, #### [facility] CLIA [id number] [address] [place] [address] [place] Sodium [Moles/Vol] 127 mmol/L Low 136-144 [facility] Comment on above: Order Comment: Speci men Type: BLOOD SPECIMEN [facility] Address: [address] [place] [address] Performed By: #### 2 4323-8, #### [facility] CLIA [id number] [address] [place] [address] [place] Urea nitrogen [Mass/Vol] 11 mg/dL Normal 9-24 [facility] Comment on above: Order Comment: Speci men Type: BLOOD SPECIMEN [facility] Address: [address] [place] [address] Performed By: #### 2 432[address], #### [facility] CLIA [id number] [address] [place] [address] [place] Magnesium SerPl-mCncon 04-22 Magnesium [Mass/Vol] 1.7 mg/dL Normal 1.7-2.3 [facility] Comment on above: Order Comment: Speci men Type: BLOOD SPECIMEN [facility] Address: [address] [place] [address] Performed By: #### 2 4323-8, #### [facility] CLIA [id number] [address] [place] [address] [place] Osmolality SerPlon Osmolality [Osmolality] 259 mosm/kg Low 275-300 [facility] Comment on above: Order Comment: Speci men Type: BLOOD SPECIMENOrdering Facility: [facility] Address: [address] [place] [address] Performed By: #### 2 692-2 ####[facility] LABCLIA [id number] [facility] [id number] [address] [place] THERAPY NTon 04-22-2022 THERAPY NT HNO ID: [id number] Author: Fidel Bowsher, OT/L Service: ? 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 Anticipated Discharge Needs: Other: See Comment (NA - rec SNF) Physical Assist at Home for: Other: See Comment (NA - rec SNF) Recommended Discharge Equipment: To Be Determined OT 6 Clicks Score: 15 Precautions/Activity Restrictions: Fall Risk;Lines/Tubes/Drains ;Bed/Chair Alarm Isolation Type: Contact AND Droplet Precautions-Plus Eyewear Current Hospital Course: admitted to [facility] Reason for Hospital Admission: fall/ +COVID, T12 compression fx Relevant Past Medical History: anemia, HTN Response to Therapy Interventions: Good participation in activities, Cognitive deficits, Requires additional time to complete activities Continue skilled needs due to: Cognitive deficits, Functional impairment, Safety concerns Occupational Therapy Problem List: Cognitive Deficit;Education Deficit;Safety Deficits;Impaired Self Care;Decreased Activity Tolerance;Decreased Strength;Functional Mobility Impairment;Balance Impaired Cognition/Communication Deficits Orientation Deficits: Confused Responsiveness: Alert, Awake Follows Commands: 2-step Commands, Cueing Needed Cueing to Follow Commands: Moderate Executive Function Deficits: Safety Awareness Safety Awareness Deficit: Minimal impairment Cognitive Clinical Tests and Screens: Short Blessed Test 1. What Year Is It Now?: Correct 2. What Month Is It Now?: Correct 3. What Time is it? (WIthin 1 hour): Incorrect 4. Count Aloud Backwards 20 to 1 (Errors): 0 5. Months of the Year in Reverse Order (Errors): 2 6. Memory Phrase (Errors) : 2 Short Blessed Final Score: 11 4AT Screening Assess alertness (ask patient to state their name and address): Normal (fully alert, but not agitated, throughout assessment) Ask patient: age, date of , current year, and current location: No mistakes Ask patient to tell me the months of the year backwards order, starting with April: Starts but states <7 months / refuses to start Acute change or fluctuating mental status: No 4AT Score: 1 Delirium Positive/Negative: Negative Treatment Interventions: Education;Self Care / Home Management;Energy Conservation Training;Strengthening; Functional Mobility Training;Balance Training;Neuromuscular Re-education;Cognitive Training Plan for next visit: Bathing training, Chair/commode transfer training, Bed mobility, Energy conservation, Standing tolerance, Standing balance, Sitting tolerance, Sitting balance, Sit to stand transfers, Shower/tub transfer training, Positioning training Home Environment Patient Lives With: Self/Alone Assistance Available: PRN (Friend, Virgil, is available to assist) Entry To Home: No Stairs Number Of Stairs To Bed/Bath: 0 Tub/Shower Type: Traditional tub/shower with grab bars Laundry: Sister Completes Equipment Owned: Grab Bars-Shower;Grab Bars-Toilet;Hand Held Shower;Cane;Commode-Rogers sed;Shower Chair Prior Functional Level: History of Falls;Required Assistance Assistance Required With: Cleaning;Laundry;Shoppi ng;Transportation;Self Care;Meals Prior Functional Level Comments: Pt reports living in 1st level apartment, requiring assistance with laundry, cleaning, meals, transportation, shopping. Pt reports performing Self care independently, using cane/walker for mobility. Baseline Cognition: Oriented to self;Oriented to place;Oriented to time;Confused Current and/or Former Occupation: Worked at a [employer] Highest Level of Education: High School Occupational Factors Life Roles: Family Member;Friend Identified Strengths: Involvement in Hobbies/Leisure Activities;Access to Healthcare Identified Barriers: Difficulty with ADLs/IADLs Patient Report: RN cleared to work with, patient pleasant and agreeable to this session CURRENT FUNCTIONAL STATUS: Most recent performance Current Activities of Daily Living Assist Level Additional Information Feeding Set Up Grooming Set Up;Additional Information Seated Bathing Upper Body Minimal Assistance Bathing Lower Body Moderate Assistance Dressing Upper Body Minimal Assistance Dressing Lower Body Moderate Assistance Toileting Moderate Assistance Instrumental Activities of Daily Living Assist Level Additional Information Meal/Beverage Prep Cleaning Laundry Medication Management with Strategies Functional Mobility Assist Level Additional Information Rolling Stand By Assistance Supine to Sit Moderate Assistance Sit to Supine Minimal Assistance;Additional (more content not included)... [facility] THERAPY NT HNO ID: [id number] Author: Fide Yoon PT Service: ? Author Type: Physical Therapist Type: Therapy (PT/OT/Speech/Resp) Filed: 04/22/2022 11:46 AM Note Text: Physical Therapy Treatment SERVICE DATE: 04/22/2022 SERVICE TIME: 1058 to 1128 ROOM: [address] [address] Recommended Discharge Disposition: Subacute/SNF Recommended Discharge Disposition Comments: to increase strength and improve funcitonal safety/balance/independ ence to support progression home Recommended Discharge Disposition Due to: Patient requires daily, facility-based rehabilitation from at least one discipline due to:;decline in functional status requiring daily skilled care;ongoing intervention of multiple therapy disciplines Anticipated Discharge Needs: Other: See Comment (NA - rec SNF) Physical Assist at Home for: Other: See Comment (NA - rec SNF) Recommended Discharge Equipment: No equipment needs anticipated PT 6 Clicks Score: 16 Precautions/Activity Restrictions: Fall Risk;Lines/Tubes/Drains ;Bed/Chair Alarm Isolation Type: Contact AND Droplet Precautions-Plus Eyewear Current Hospital Course: admitted to [facility] Reason for Hospital Admission: fall/ +COVID, T12 compression fx Relevant Past Medical History: anemia, HTN Response to Therapy Interventions: Good participation in activities, Requires additional time to complete activities, Requires encouragement to complete activities Assessment Comments: Patient alexandra's impaired balance, limited activity tolerance and impaired safety awarness causing him to require increased assistance with transfers, gait and mobility and placing him at a high risk of falls. Continue skilled needs due to: Functional mobility/skill impairments, Safety concerns Physical Therapy Problem List: Pain;Safety Deficits;Impaired Self Care;Decreased Activity Tolerance;Decreased Strength;Functional Mobility Impairment;Balance Impaired;Decreased Skin Integrity;Cognitive Deficit Treatment Interventions: Education;Functional Mobility Training;Balance Training Plan for next visit: Bed mobility, Fall prevention, Gait training, Pre-gait activities, Sit to Stand Transfers, Sitting balance, Standing Balance, Standing Tolerance, Walker Training Home Environment Patient Lives With: Self/Alone Assistance Available: PRN (Friend, Virgil, is available to assist) Entry To Home: No Stairs Number Of Stairs To Bed/Bath: 0 Tub/Shower Type: Traditional tub/shower with grab bars Laundry: Sister Completes Equipment Owned: Grab Bars-Shower;Grab Bars-Toilet;Hand Held Shower;Cane;Commode-Rogers sed;Shower Chair Prior Functional Level: History of Falls;Required Assistance Assistance Required With: Cleaning;Laundry;Shoppi ng;Transportation;Self Care;Meals Prior Functional Level Comments: Pt reports living in 1st level apartment, requiring assistance with laundry, cleaning, meals, transportation, shopping. Pt reports performing Self care independently, using cane/walker for mobility. Baseline Cognition: Oriented to self;Oriented to place;Oriented to time;Confused Patient Report: Patient agreeable to PT treatment with desire to ambulate. CURRENT FUNCTIONAL STATUS: Most recent performance Current Functional Mobility Assist Level Additional Information Rolling Supine to Sit Moderate Assistance;Additional Information HOB elevated to 32 degrees with cues for hand placement and assistance for weight shift over TANESHA from sidelying. Sit to Supine Minimal Assistance;Additional Information HOB flat with cues for set-up and positioning with shoulders and assistance for BLE Scooting Contact Guard Assistance;Additional Information Sit to Stand Minimal Assistance;Additional Information from EOB throughout treatment and 5 x repetitively with cues for safe hand placement and assistance for righting reactions. Standing heel raises with wheeled walker and cues and assistance for anterior weight shift 1 x 10 Osvaldo. Stand to Sit Minimal Assistance;Contact Guard Assistance;Additional Information cues for safe hand placement and eccentric control to EOB throughout PT treatment Bed to Chair Toilet/Commode Gait Minimal Assistance;Additional Information Gait Device: Wheeled Walker Gait Distance (feet): 30 ft x 2 Cues for erect posture and increased step length with patient able to correct, but unable to maintain. Distance limited by fatigue. Stairs Curb Step Car Transfer Blank cain indicate activity not attempted Gait Deviations Right Lower Extremity: Foot clearance decreased;Stance time decreased;Step length decreased Gait Deviations Left Lower Extremity: Foot clearance decreased;Stance time decreased;Step length decreased General Deviations/Observations : Difficulty changing direction/turning;Flexe d trunk posture;Lateral sway increased;Wide base of support Balance: Static Sitting;Dynamic Sitting;Static Standing;Dynamic Standing Static Sitting Balance: Good Patient able to maintain balance with (more content not included)... Normal [facility] CBC panel Auto (Bld)on 04-21 Erythrocyte distribution width (RBC) [Ratio] 14.6 % Normal 11.5-15.0 [facility] Comment on above: Order Comment: Speci men Type: BLOOD SPECIMENOrdering Facility: [facility] Address: [address] [place] [id number] Performed By: #### 5 8410-2 ####[facility]CLIA [id number] [address] Hematocrit (Bld) [Volume fraction] 36.7 % Low 39.0-51.0 [facility] Comment on above: Order Comment: Speci men Type: BLOOD SPECIMENOrdering Facility: [facility] Address: [address] [place] [address] Performed By: #### 5 8410-2 ####[facility]CL[facility] [id number] [address] [place] Hemoglobin (Bld) [Mass/Vol] 12.5 g/dL Low 13.0-17.0 [facility] Comment on above: Order Comment: Speci men Type: BLOOD SPECIMENOrdering Facility: [facility] Address: [address] [place] [address] Performed By: #### 5 8410-2 ####[facility]ORYCLIA [id number] [address] STATES [facility] MCH (RBC) [Entitic mass] 31.8 pg Normal 26.0-34.0 [facility] Comment on above: Order Comment: Speci men Type: BLOOD SPECIMENOrdering Facility: [facility] Address: [address] [place] [address] Performed By: #### 5 8410-2 ####[facility] LABORATORYCLIA [id number] [address] [place] MCHC (RBC) [Mass/Vol] 34.1 g/dL Normal 30.5-36.0 [facility] Comment on above: Order Comment: Speci men Type: BLOOD SPECIMENOrdering Facility: [facility] Address: [address] [place] [address] Performed By: #### 5 8410-2 ####[facility] LABORATORYCLIA [id number] [address] MCV (RBC) [Entitic vol] 93.4 fL Normal 80.0-100.0 [facility] Comment on above: Order Comment: Speci men Type: BLOOD SPECIMENOrdering Facility: [facility] Address: [address] [place] [address] Performed By: #### 5 8410-2 ####[facility]ORATORYCLIA [id number] [address] Nucleated RBC (Bld) [#/Vol] 10*3/uL Normal <0.01 [facility] Comment on above: Order Comment: Speci men Type: BLOOD SPECIMENOrdering Facility: [facility] Address: [address] [place] [address] Performed By: #### 5 8410-2 ####[facility] LABORATORYCLIA [id number] [address] Platelet mean volume (Bld) [Entitic vol] 10.6 fL Normal 9.0-12.7 [facility] Comment on above: Order Comment: Speci men Type: BLOOD SPECIMENOrdering Facility: [facility] Address: [address] [place] [address] Performed By: #### 5 8410-2 ####[facility] LABORATORYCLIA [id number] [address] Platelets (Bld) [#/Vol] 108 10*3/uL Low 150-400 [facility] Comment on above: Order Comment: Speci men Type: BLOOD SPECIMENOrdering Facility: [facility] Address: [address] [place] [address] Result Comment: No c lot detected Performed By: #### 5 8410-2 ####[facility] LABORATORYCLIA [id number] [address] RBC (Bld) [#/Vol] 3.93 10*6/uL Low 4.20-6.00 [facility] Comment on above: Order Comment: Speci men Type: BLOOD SPECIMENOrdering Facility: [facility] Address: [address] [place] [address] Performed By: #### 5 8410-2 ####[facility] LABORATORYCLIA [id number] [address] WBC (Bld) [#/Vol] 2.64 10*3/uL Low 3.70-11.00 [facility] Comment on above: Order Comment: Speci men Type: BLOOD SPECIMENOrdering Facility: [facility] Address: [address] [place] [address] Performed By: #### 5 8410-2 ####[facility] LABORATORYCLIA [id number] [address] Comprehensive metabolic 2000 panelon 04-21-2022 Albumin [Mass/Vol] 3.0 g/dL Low 3.9-4.9 [facility] Comment on above: Order Comment: Speci men Type: BLOOD SPECIMENOrdering Facility: [facility] Address: [address] [place] [address] Performed By: #### 2 4323-8, ####[facility] LABORATORYCLIA [id number] [address] ALP [Catalytic activity/Vol] 80 U/L Normal 38-113 [facility] Comment on above: Order Comment: Speci men Type: BLOOD SPECIMENOrdering Facility: [facility] Address: [address] [place] [address] Performed By: #### 2 432-8, ####[facility] LABORATORYCLIA [id number] [address] ALT [Catalytic activity/Vol] 9 U/L Low 10-54 [facility] Comment on above: Order Comment: Speci men Type: BLOOD SPECIMENOrdering Facility: [facility] Address: [address] [place] [address] Performed By: #### 2 4328, ####[facility] LABORATORYCLIA [id number] [address] Anion gap [Moles/Vol] 10 mmol/L Normal 9-18 [facility] Comment on above: Order Comment: Speci men Type: BLOOD SPECIMENOrdering Facility: [facility] Address: [address] [place] [address] Performed By: #### 2 432-8, ####[facility] LABORATORYCLIA [id number] [address] AST [Catalytic activity/Vol] 20 U/L Normal 14-40 [facility] Comment on above: Order Comment: Speci men Type: BLOOD SPECIMENOrdering Facility: [facility] Address: [address] [place] [address] Performed By: #### 2 4322-8, ####MAYS LABORATORYCLIA [id number] [place] [address] [place] Bilirubin [Mass/Vol] 0.3 mg/dL Normal 0.2-1.3 [facility] Comment on above: Order Comment: Speci men Type: BLOOD SPECIMENOrdering Facility: [facility] Address: [address] [place] [address] Performed By: #### 2 8, ####MAYS LABORATORYCLIA [id number] [place] [address] [place] Calcium [Mass/Vol] 7.8 mg/dL Low 8.5-10.2 [facility] Comment on above: Order Comment: Speci men Type: BLOOD SPECIMENOrdering Facility: [facility] Address: [address] [place] [address] Performed By: #### 2 8, ####MA[facility] LABORATORYCLIA [id number] [place] [address] [place] Chloride [Moles/Vol] 99 mmol/L Normal 97-105 [facility] Comment on above: Order Comment: Speci men Type: BLOOD SPECIMENOrdering Facility: [facility] Address: [address] [place] [address] Performed By: #### 2 8, ####MAYS LABORATORYCLIA [id number] [place] [address] [place] CO2 [Moles/Vol] 21 mmol/L Low 22-30 [facility] Comment on above: Order Comment: Speci men Type: BLOOD SPECIMENOrdering Facility: [facility] Address: [address] [place] [address] Performed By: #### 2 8, ####MAYS LABORATORYCLIA [id number] [address] Creatinine [Mass/Vol] 0.61 mg/dL Low 0.73-1.22 [facility] Comment on above: Order Comment: Harvey burns Type: BLOOD SPECIMENOrdering Facility: [facility] Address: [address] [place] [id number] Performed By: #### 2 4323-8, ####MAYS LABORATORYCLIA [id number] [place] [id number] [facility] ESTIMATED GLOMERULAR FILTRATION RATE 96 mL/min/1.73m??? Normal >=60 [facility] Comment on above: Order Comment: Harvey burns Type: BLOOD SPECIMENOrdering Facility: [facility] Address: [address] [place], [place] [address] Result Comment: Silvia mated Glomerular Filtration Rate (eGFR) is calculated using the 2020 CKD-EPI creatinine equation. This equation utilizes serum creatinine, sex, and age as parameters. The creatinine assay has traceable calibration to isotope dilution-mass spectrometry. Refer to KDIGO guidelines for clinical interpretation. In patients with unstable renal function, e.g. those with acute kidney injury, the eGFR may not accurately reflect actual GFR. Performed By: #### 2 4323-8, ####MAYS LABORATORYCLIA [id number] [address] Glucose [Mass/Vol] 65 mg/dL Low 74-99 [facility] Comment on above: Order Comment: Harvey burns Type: BLOOD SPECIMENOrdering Facility: [facility] Address: [address] [place], [place] [id number] Result Comment: The [place] [employer] (ADA) provides guidance for cutoff values for fasting glucose and random glucose. The ADA defines fasting as no caloric intake for at least 8 hours. Fasting plasma glucose results between 100 to 125 mg/dL indicate increased risk for diabetes (prediabetes). Fasting plasma glucose results greater than or equal to 126 mg/dL meet the criteria for diagnosis of diabetes. In the absence of unequivocal hyperglycemia, results should be confirmed by repeat testing. In a patient with classic symptoms of hyperglycemia or hyperglycemic crisis, random plasma glucose results greater than or equal to 200 mg/dL meet the criteria for diagnosis of diabetes. Reference: Standards of Medical Care in Diabetes 2016, [place] [employer]. Diabetes Care. 2016.39(Suppl 1). Performed By: #### 2 4322-12, ####MAYS LABORATORYCLIA [id number] [place] [address] [place] Potassium [Moles/Vol] 4.4 mmol/L Normal 3.7-5.1 [facility] Comment on above: Order Comment: Speci men Type: BLOOD SPECIMENOrdering Facility: [facility] Address: [address] [place] [address] Performed By: #### 2 4322-12, ####MAYS LABORATORYCLIA [id number] [place] [address] [place] Protein [Mass/Vol] 5.8 g/dL Low 6.3-8.0 [facility] Comment on above: Order Comment: Speci men Type: BLOOD SPECIMENOrdering Facility: [facility] Address: [address] [place] [address] Performed By: #### 2 4322-12, ####MAYS LABORATORYCLIA [id number] [place] [address] [place] Sodium [Moles/Vol] 130 mmol/L Low 136-144 [facility] Comment on above: Order Comment: Speci men Type: BLOOD SPECIMENOrdering Facility: [facility] Address: [address] [place] [address] Performed By: #### 2 4322-12, ####MAYS LABORATORYCLIA [id number] [place] [address] [place] Urea nitrogen [Mass/Vol] 15 mg/dL Normal 9-24 [facility] Comment on above: Order Comment: Speci men Type: BLOOD SPECIMENOrdering Facility: [facility] Address: [address] [place] [address] Performed By: #### 2 4322-12, ####MAYS LABORATORYCLIA [id number] [place] [address] [place] Magnesium SerPl-mCncon 04-21 Magnesium [Mass/Vol] 1.8 mg/dL Normal 1.7-2.3 [facility] Comment on above: Order Comment: Speci men Type: BLOOD SPECIMENOrdering Facility: [facility] Address: [address] [place] [address] Performed By: #### 2 4323-8, 23779-3 ####MAYS LABORATORYCLIA [id number] [address] CBC panel Auto (Bld)on 04-20 Erythrocyte distribution width (RBC) [Ratio] 14.5 % Normal 11.5-15.0 [facility] Comment on above: Order Comment: Speci men Type: BLOOD SPECIMENOrdering Facility: [facility] Address: [address] [place] [address] Performed By: #### 5 8410-2 ####MAYS LABORATORYCLIA [id number] [address] Hematocrit (Bld) [Volume fraction] 33.9 % Low 39.0-51.0 [facility] Comment on above: Order Comment: Speci men Type: BLOOD SPECIMENOrdering Facility: [facility] Address: [address] [place] [address] Performed By: #### 5 8410-2 ####MA[facility] LABORATORYCLIA [id number] [address] Hemoglobin (Bld) [Mass/Vol] 11.5 g/dL Low 13.0-17.0 [facility] Comment on above: Order Comment: Speci men Type: BLOOD SPECIMENOrdering Facility: [facility] Address: [address] [place] [address] Performed By: #### 5 8410-2 ####MA[facility] LABORATORYCLIA [id number] [address] MCH (RBC) [Entitic mass] 32.2 pg Normal 26.0-34.0 [facility] Comment on above: Order Comment: Speci men Type: BLOOD SPECIMENOrdering Facility: [facility] Address: [address] [place] [address] Performed By: #### 5 8410-2 ####MA[facility] LABORATORYCLIA [id number] [address] MCHC (RBC) [Mass/Vol] 33.9 g/dL Normal 30.5-36.0 [facility] Comment on above: Order Comment: Speci men Type: BLOOD SPECIMENOrdering Facility: [facility] Address: [address] [place] [address] Performed By: #### 5 8410-2 ####MAYS LABORATORYCLIA [id number] [address] MCV (RBC) [Entitic vol] 95.0 fL Normal 80.0-100.0 [facility] Comment on above: Order Comment: Speci men Type: BLOOD SPECIMENOrdering Facility: [facility] Address: [address] [place] [address] Performed By: #### 5 8410-2 ####MAYS LABORATORYCLIA [id number] [address] Nucleated RBC (Bld) [#/Vol] 10*3/uL Normal <0.01 [facility] Comment on above: Order Comment: Speci men Type: BLOOD SPECIMENOrdering Facility: [facility] Address: [address] [place] [address] Performed By: #### 5 8410-2 ####MAYS LABORATORYCLIA [id number] [address] Platelet mean volume (Bld) [Entitic vol] 11.1 fL Normal 9.0-12.7 [facility] Comment on above: Order Comment: Speci men Type: BLOOD SPECIMENOrdering Facility: [facility] Address: [address] [place] [address] Performed By: #### 5 8410-2 ####MA[facility] LABORATORYCLIA [id number] [address] Platelets (Bld) [#/Vol] 106 10*3/uL Low 150-400 [facility] Comment on above: Order Comment: Speci men Type: BLOOD SPECIMENOrdering Facility: [facility] Address: [address] [place] [address] Performed By: #### 5 8410-2 ####MA[facility] LABORATORYCLIA [id number] [address] RBC (Bld) [#/Vol] 3.57 10*6/uL Low 4.20-6.00 [facility] Comment on above: Order Comment: Speci men Type: BLOOD SPECIMENOrdering Facility: [facility] Address: [address] [place] [address] Performed By: #### 5 8410-2 ####MAYS LABORATORYCLIA [id number] [address] WBC (Bld) [#/Vol] 2.11 10*3/uL Low 3.70-11.00 [facility] Comment on above: Order Comment: Speci men Type: BLOOD SPECIMENOrdering Facility: [facility] Address: [address] [place] [address] Performed By: #### 5 8410-2 ####MAYS LABORATORYCLIA [id number] [address] Comprehensive metabolic 2000 panelon 04-20-2022 Albumin [Mass/Vol] 2.9 g/dL Low 3.9-4.9 [facility] Comment on above: Order Comment: Speci men Type: BLOOD SPECIMEN [facility] Address: [address] [place] [address] Performed By: #### 2 4323-8, #### [facility] CLIA [id number] [address] ALP [Catalytic activity/Vol] 72 U/L Normal 38-113 [facility] Comment on above: Order Comment: Speci men Type: BLOOD SPECIMEN [facility] Address: [address] [place] [address] Performed By: #### 2 4323-8, #### [facility] CLIA [id number] [address] ALT [Catalytic activity/Vol] 8 U/L Low 10-54 [facility] Comment on above: Order Comment: Speci men Type: BLOOD SPECIMEN [facility] Address: [address] [place] [address] Performed By: #### 2 8, #### [facility] CLIA [id number] [address] [place] [address] [place] Anion gap [Moles/Vol] 10 mmol/L Normal 9-18 [facility] Comment on above: Order Comment: Speci men Type: BLOOD SPECIMEN [facility] Address: [address] [place] [address] Performed By: #### 2 8, #### [facility] CLIA [id number] [address] [place] [address] [place] AST [Catalytic activity/Vol] 18 U/L Normal 14-40 [facility] Comment on above: Order Comment: Speci men Type: BLOOD SPECIMEN [facility] Address: [address] [address] Performed By: #### 2 8, #### [facility] CLIA [id number] [address] [place] [address] [place] Bilirubin [Mass/Vol] 0.3 mg/dL Normal 0.2-1.3 [facility] Comment on above: Order Comment: Speci men Type: BLOOD SPECIMEN [facility] Address: [address] [place] [address] Performed By: #### 2 8, #### [facility] CLIA [id number] [address] [place] [address] [place] Calcium [Mass/Vol] 7.6 mg/dL Low 8.5-10.2 [facility] Comment on above: Order Comment: Speci men Type: BLOOD SPECIMEN [facility] Address: [address] [place] [address] Performed By: #### 2 8, #### [facility] CLIA [id number] [address] Chloride [Moles/Vol] 101 mmol/L Normal 97-105 [facility] Comment on above: Order Comment: Harvey men Type: BLOOD SPECIMEN [facility] Address: [address] [place] [address] Performed By: #### 2 43238, #### [facility] CLIA [id number] [address] [place] CO2 [Moles/Vol] 20 mmol/L Low 22-30 [facility] Comment on above: Order Comment: Truei men Type: BLOOD SPECIMEN [facility] Address: [address] [place] [address] Performed By: #### 2 4328, #### [facility] CLIA [id number] [address] [facility] Creatinine [Mass/Vol] 0.62 mg/dL Low 0.73-1.22 [facility] Comment on above: Order Comment: Truei men Type: BLOOD SPECIMEN [facility] Address: [address] [place] [address] Performed By: #### 2 4322-12, #### [facility] CLIA [id number] [address] ESTIMATED GLOMERULAR FILTRATION RATE 96 mL/min/1.73m??? Normal >=60 [facility] Comment on above: Order Comment: Harvey men Type: BLOOD SPECIMEN [facility] Address: [address] [place] [address] Result Comment: Silvia mated Glomerular Filtration Rate (eGFR) is calculated using the 2020 CKD-EPI creatinine equation. This equation utilizes serum creatinine, sex, and age as parameters. The creatinine assay has traceable calibration to isotope dilution-mass spectrometry. Refer to KDIGO guidelines for clinical interpretation. In patients with unstable renal function, e.g. those with acute kidney injury, the eGFR may not accurately reflect actual GFR. Performed By: #### 2 4323-8, #### [facility] CLIA [id number] [address] [place] [address] [place] Glucose [Mass/Vol] 75 mg/dL Normal 74-99 [facility] Comment on above: Order Comment: Harvey burns Type: BLOOD SPECIMEN [facility] Address: [address] [place] [address] Result Comment: The [place] Diabetes [employer] (ADA) provides guidance for cutoff values for fasting glucose and random glucose. The ADA defines fasting as no caloric intake for at least 8 hours. Fasting plasma glucose results between 100 to 125 mg/dL indicate increased risk for diabetes (prediabetes). Fasting plasma glucose results greater than or equal to 126 mg/dL meet the criteria for diagnosis of diabetes. In the absence of unequivocal hyperglycemia, results should be confirmed by repeat testing. In a patient with classic symptoms of hyperglycemia or hyperglycemic crisis, random plasma glucose results greater than or equal to 200 mg/dL meet the criteria for diagnosis of diabetes. Reference: Standards of Medical Care in Diabetes 2016, [place] [employer]. Diabetes Care. 2016.39(Suppl 1). Performed By: #### 2 43207-31, #### [facility] CLIA [id number] [address] [place] [address] [place] Potassium [Moles/Vol] 3.5 mmol/L Low 3.7-5.1 [facility] Comment on above: Order Comment: Harvey ubrns Type: BLOOD SPECIMEN [facility] Address: [address] [place] [address] Performed By: #### 2 43207-31, #### [facility] CLIA [id number] [address] [place] [address] [place] Protein [Mass/Vol] 5.3 g/dL Low 6.3-8.0 [facility] Comment on above: Order Comment: Harvey burns Type: BLOOD SPECIMEN [facility] Address: [address] [place] [address] Performed By: #### 2 4322-12, #### [facility] CLIA [id number] [address] [place] [address] [place] Sodium [Moles/Vol] 131 mmol/L Low 136-144 [facility] Comment on above: Order Comment: Speci men Type: BLOOD SPECIMEN [facility] Address: [address] [place] [address] Performed By: #### 2 4323-8, #### [facility] CLIA [id number] [address] [place] [address] [place] Urea nitrogen [Mass/Vol] 16 mg/dL Normal 9-24 [facility] Comment on above: Order Comment: Speci men Type: BLOOD SPECIMEN [facility] Address: [address] [place] [address] Performed By: #### 2 4323-8, #### [facility] CLIA [id number] [address] [place] Magnesium SerPl-mCncon 04-20 Magnesium [Mass/Vol] 1.8 mg/dL Normal 1.7-2.3 [facility] Comment on above: Order Comment: Speci men Type: BLOOD SPECIMEN [facility] Address: [address] [place] [address] Performed By: #### 2 4323-8, #### [facility] CLIA [id number] [address] [place] [address] [place] NURSING PROGon 04-20-2022 NURSING PROG HNO ID: [id number] Author: Kristal Beltran RN Service: ? Author Type: Registered Nurse Type: Nursing Progress Note Filed: 04/20/2022 5:18 AM Note Text: Other: 5:16 AM Med alert fired. Maximum dose of tylenol reached. It is scheduled for 1,000 mg every 8 hours. [facility] has been notified. Kristal Beltran RN [facility] ALLIED HEALTHon 04-19-2022 ALLIED HEALTH HNO ID: [id number] Author: Ashlyn Crisostomo RN Service: Infection Prevention Author Type: Registered Nurse Type: Allied Health Filed: 04/19/2022 10:06 AM Note Text: ISOLATION NOTE Admission Date: 04/17/2022 Type of Isolation Recommended: Contact and Droplet Precautions Plus Eyewear (Cranberry Isolation Sign) Indication: COVID-19 Maintain Contact/Droplet and Eyewear isolation signage Remain in private room or cohort when deemed appropriate Don an N95 (or PAPR) prior to entering the patient room Avoid entering room during aerosol generating procedure when possible Restrict room access to essential personnel only Contact Infection Prevention prior to discontinuing precautions when criteria are met Limit transport and movement of the patient to medically necessary purposes Date Isolation Initiated: 04/17/2022 Anticipated Duration of Isolation: In consultation with Infection Prevention Type and Date of Positive Test(s): Positive PCR 04/17/2022. SIGNATURE: Ashlyn Crisostomo RN PATIENT NAME: Dane Bishop DATE: April 19, 2022 TIME: 10:05 AM PAGER/CONTACT #: [phone] Infection Prevention after hours/weekend pager: Contact Nursing Rn Hemo Dialysis [facility] Bacteria Ur Culton Bacteria identified Cx Nom (U) ORGANISM ID: 1 10,000 -<50,000 CFU/ml Normal urogenital marcelo [facility] Comment on above: Performed By: #### 6 30-4 ####[facility] LABCLIA [id number] [address] [facility] CASE MANAGEMon 04-19-2022 CASE MANAGEM HNO ID: [id number] Author: Leslie Partida RN Service: ? Author Type: Registered Nurse Type: Care Mgt Progress Note Filed: 04/19/2022 11:08 AM Note Text: CARE MANAGEMENT PROGRESS NOTE SERVICE DATE: 04/19/2022 SERVICE TIME: 10:58 AM LOS: 0 days CM called and spoke with contact Irena arteaga, she is requesting pt d/c to [facility] for rehab. She is to call pt to discuss with him. Pt not willing to speak with CM at this time. Referral sent. Pt now agreeable to [facility].. SIGNATURE: Leslie Partida RN PATIENT NAME: Dane Cueva [facility] DATE: April 19, 2022 TIME: 10:58 AM PAGER/CONTACT #: [phone] [facility] CBC panel Auto (Bld)on 04-19 Erythrocyte distribution width (RBC) [Ratio] 14.4 % Normal 11.5-15.0 [facility] Comment on above: Order Comment: Speci men Type: BLOOD SPECIMEN [facility] Address: [address] [place] [address] Performed By: #### 2 8, #### [facility] CLIA [id number] [address] Hematocrit (Bld) [Volume fraction] 39.6 % Normal 39.0-51.0 [facility] Comment on above: Order Comment: Speci men Type: BLOOD SPECIMEN [facility] Address: [address] [place] [address] Performed By: #### 2 4322-12, #### [facility] CLIA [id number] [address] [place] Hemoglobin (Bld) [Mass/Vol] 13.3 g/dL Normal 13.0-17.0 [facility] Comment on above: Order Comment: Speci men Type: BLOOD SPECIMEN [facility] Address: [address] [place] [address] Performed By: #### 2 4322-12, #### [facility] CLIA [id number] [address] MCH (RBC) [Entitic mass] 31.4 pg Normal 26.0-34.0 [facility] Comment on above: Order Comment: Speci men Type: BLOOD SPECIMEN [facility] Address: [address] [place] [address] Performed By: #### 2 4322-12, #### [facility] CLIA [id number] [address] MCHC (RBC) [Mass/Vol] 33.6 g/dL Normal 30.5-36.0 [facility] Comment on above: Order Comment: Speci men Type: BLOOD SPECIMEN Ordering Facility: [facility] Address: [address] [place] [address] Performed By: #### 2 4322-12, #### [facility] CLIA [id number] [address] MCV (RBC) [Entitic vol] 93.6 fL Normal 80.0-100.0 [facility] Comment on above: Order Comment: Speci men Type: BLOOD SPECIMEN Ordering Facility: [facility] Address: [address] [place] [address] Performed By: #### 2 4328, #### [facility] CLIA [id number] [address] [place] Nucleated RBC (Bld) [#/Vol] 10*3/uL Normal <0.01 [facility] Comment on above: Order Comment: Speci men Type: BLOOD SPECIMEN Ordering Facility: [facility] Address: [address] [place] [address] Performed By: #### 2 8, #### [facility] CLIA [id number] [address] Platelet mean volume (Bld) [Entitic vol] 10.7 fL Normal 9.0-12.7 [facility] Comment on above: Order Comment: Speci men Type: BLOOD SPECIMEN Ordering Facility: [facility] Address: [address] [place] [address] Performed By: #### 2 4322-12, #### [facility] CLIA [id number] [address] Platelets (Bld) [#/Vol] 117 10*3/uL Low 150-400 [facility] Comment on above: Order Comment: Speci men Type: BLOOD SPECIMEN Ordering Facility: [facility] Address: [address] [place] [address] Result Comment: No c lot detected Performed By: #### 2 8, #### [facility] CLIA [id number] [address] RBC (Bld) [#/Vol] 4.23 10*6/uL Normal 4.20-6.00 [facility] Comment on above: Order Comment: Speci men Type: BLOOD SPECIMEN Ordering Facility: [facility] Address: [address] [place], [place] [address] [address] Performed By: #### 2 4323-8, #### [facility] CLIA [id number] [address] [id number] [facility] WBC (Bld) [#/Vol] 4.37 10*3/uL Normal 3.70-11.00 [facility] Comment on above: Order Comment: Speci men Type: BLOOD SPECIMEN Ordering Facility: [facility] Address: [place] [address] Performed By: #### 2 4323-8, #### [facility] CLIA [id number] 1000 [place] [address] [facility] CONSULTon 04-19-2022 CONSULT HNO ID: [id number] Author: Codie Mojica APRN.LUNCHEONETTE OPERATOR Service: Wound/Ostomy Author Type: Nurse Practitioner Type: Consults Filed: 04/19/2022 12:27 PM Note Text: WOUND CARE SERVICE CONSULT NOTE SERVICE DATE: 04/19/2022 SERVICE TIME: 1140 Consultation requested by Isaias Abbasi PA-C for an opinion regarding coccyx stage 4. My final recommendations will be communicated back to requesting provider by way of shared medical record. Subjective HISTORY OF PRESENT ILLNESS: Dane Martinez is a 81 year old male is being seen with the admitting diagnosis of fall, covid 19. Presenting wound information: Pt is seen and evaluated at bedside. Wound HPI provided by pt and medical record. He presented to the ER after falling at home. Pt reportedly fell when he lost his balance coming out of the bathroom. He landed on his butt and remained on the floor for about 2 hours while trying to call for help. His friend Virgil assisted him off the floor and then he was brought to the ER for further evaluation. Pt reports that he had a sore on his buttock that initially started off as a cyst. He reports that the cyst has been present since the 1960s and that it heals up and then opens back up intermittently. Pt endorses sitting on his bottom quite a bit. He states that he has been falling quite a bit at home and has been refusing to go to a SNF but he is thinking it would be a good idea to go to one now. Denies having an associated pain at this time but he states that sometimes it feels uncomfortable and that he can feel that the wound is there. REVIEW OF SYSTEMS: PAIN ASSESSMENT: Negative for pain, history of chronic pain, or current treatment for a chronic pain condition. GENERAL: No weight loss, malaise or fevers MUSCULOSKELETAL: Weakness SKIN: See wound HPI PAST MEDICAL HISTORY Diagnosis Date Anemia HTN (hypertension) 08/12/2014 Left inguinal hernia 04/02/2016 Recurrent right inguinal hernia 04/02/2016 PAST SURGICAL HISTORY Procedure Laterality Date EXC PILONID CYST SMPL 60 HERNIA REPAIR W/MESH 04/09/16 lap bilateral PAST SURGICAL HISTORY OF 2013 right inguinal hernia Social History Tobacco Use Smoking status: Never Smokeless tobacco: Never Vaping Use Vaping Use: Never used Substance Use Topics Alcohol use: No Drug use: No FAMILY HISTORY Problem Relation Age of Onset Coronary Artery Disease Sister 64 Diabetes Brother Hypertension Sister Hypertension Sister Heart Father MEDICATIONS: Current Facility-Administered Medications Medication Dose Route Frequency acetaminophen 1,000 mg tab(s) (TYLENOL) 1,000 mg ORAL q 8 H heparin 5,000 Units injection 5,000 Units SUBCUTANEOUS q 12 H NaCl 0.9% iv flush bag 20 mL INTRAVENOUS PRN sodium chloride 0.9 % (flush) 3-5 mL (BD POSIFLUSH) 3-5 mL INTRAVENOUS q 12 H lidocaine 4 % 2 Patch (SALONPAS) 2 Patch TRANSDERMAL DAILY AT 9 PM And lidocaine patch - REMOVE OTHER DAILY And lidocaine - VERIFY PATCH OTHER q 8 H keTORolac 15 mg injection (TORADOL) 15 mg INTRAVENOUS q 6 H PRN guaiFENesin 600 mg ER tab(s) (MUCINEX) 600 mg ORAL q 12 H PRN albuterol HFA 90 mcg/actuation 2 Puff (PROVENTIL HFA, VENTOLIN HFA) 2 Puff INHALATION q 4 H PRN lisinopril 20 mg tab(s) (ZESTRIL, PRINIVIL) 20 mg ORAL DAILY tamsulosin 0.4 mg cap(s) (FLOMAX) 0.4 mg ORAL DAILY ferrous sulfate 325 mg tab(s) 325 mg ORAL DAILY WITH BREAKFAST iv contrast (radiology procedure) INTRAVENOUS DIRECTED PRN remdesivir in NaCl 0.9% Vial-Mate/ADD-[place] 100 mg 275 mL 100 mg INTRAVENOUS q 24 HR NaCl 0.9% iv infusion 75 mL/hr INTRAVENOUS CONTINUOUS ALLERGIES No Known Allergies Objective PHYSICAL EXAM: BP 127/98 Pulse 63 Temp (Src) 97.6 (Tympanic) Resp 18 SpO2 95% O2 Therapy: Room Air General: Alert, no distress, cooperative, [place], thin, elderly male Musculoskeletal: Positive for weakness, requires some assistance with bed mobility Wound: (See photo in get images) Sacral Wound: Full thickness. Wound bed dark pink. Wound measuring approximately 1.0x0.2x0.5cm. No drainage. DATA Diagnostic tests reviewed for today's visit: Wound photo Most recent labs and imaging results. Impression/Recommendati ons Sacral Wound - POA. - ?pressure ulcer vs re-opening of old cyst. - Cleanse with NS. Apply silver alginate. Reinbeck with silicone foam dressing. Change 3 times a week and PRN. At High Risk for Impaired Skin - Turn Q2hr. - Boots. - Prompt pericare. Barriers to Healing: Body habitus, Comorbid conditions, Mobility, and Moisture Pressure Injury Prevention: Heel offloading, Heel suspension boots, Moisture management, Redistribution surface, and Turn schedule Follow Up: Patient will follow up with wound care at their facility PHOTOGRAPHY: A photo was taken of the patient's wound(s). Photos can be found under the Get Images tab on [employer]. The purpose of the photo(s) is to optimize the patient's medical care and allow a visual a (more content not included)... Normal [facility] Comprehensive metabolic 2000 panelon 04-19-2022 Albumin [Mass/Vol] 3.6 g/dL Low 3.9-4.9 [facility] Comment on above: Order Comment: Speci men Type: BLOOD SPECIMENOrdering Facility: [facility] Address: [address] [id number] Performed By: #### 1 9123-9, 45752-0, VENICE ####[facility] [id number] [place] [address] [place] ALP [Catalytic activity/Vol] 94 U/L Normal 38-113 [facility] Comment on above: Order Comment: Speci men Type: BLOOD SPECIMENOrdering Facility: [facility] Address: [address] [phone] Performed By: #### 1 52239, 03336-8, VENICE ####[facility] [id number] [place] [address] [place] ALT [Catalytic activity/Vol] 9 U/L Low 10-54 [facility] Comment on above: Order Comment: Speci men Type: BLOOD SPECIMENOrdering Facility: [facility] Address: [address] [place] [address] Performed By: #### 1 239, , VENICE ####[facility] [id number] [place] [address] [place] Anion gap [Moles/Vol] 11 mmol/L Normal 9-18 [facility] Comment on above: Order Comment: Speci men Type: BLOOD SPECIMENOrdering Facility: [facility] Address: [address] [place] [address] Performed By: #### 1 9, , VENICE ####[facility] [id number] [place] [address] [place] AST [Catalytic activity/Vol] 19 U/L Normal 14-40 [facility] Comment on above: Order Comment: Speci men Type: BLOOD SPECIMENOrdering Facility: [facility] Address: [address] [place] [address] Performed By: #### 1 9, , VENICE ####[facility] [id number] [place] [address] [place] Bilirubin [Mass/Vol] 0.5 mg/dL Normal 0.2-1.3 [facility] Comment on above: Order Comment: Speci men Type: BLOOD SPECIMENOrdering Facility: [facility] Address: [address] [place] [address] Performed By: #### 1 23-9, , VENICE ####[facility] [id number] [place] [address] [place] Calcium [Mass/Vol] 8.3 mg/dL Low 8.5-10.2 [facility] Comment on above: Order Comment: Speci men Type: BLOOD SPECIMENOrdering Facility: [facility] Address: [address] [address] Performed By: #### 1 9123-9, 96193-6, VENICE ####[facility] [id number] [address] [place] [facility] Chloride [Moles/Vol] 96 mmol/L Low 97-105 [facility] Comment on above: Order Comment: Speci men Type: BLOOD SPECIMENOrdering Facility: [facility] Address: [address] [place] [address] Performed By: #### 1 9123-9, 04169-5, VENICE ####[facility] [id number] [place] [address] [place] CO2 [Moles/Vol] 26 mmol/L Normal 22-30 [facility] Comment on above: Order Comment: Speci men Type: BLOOD SPECIMENOrdering Facility: [facility] Address: [address] [place] [address] Performed By: #### 1 9123-9, 32491-3, VENICE ####[facility] [id number] [address] [facility] Creatinine [Mass/Vol] 0.94 mg/dL Normal 0.73-1.22 [facility] Comment on above: Order Comment: Speci men Type: BLOOD SPECIMENOrdering Facility: [facility] Address: [address] [place] [address] Performed By: #### 1 9123-9, 15718-6, VENICE ####[facility] [id number] [address] ESTIMATED GLOMERULAR FILTRATION RATE 81 mL/min/1.73m??? Normal >=60 [facility] Comment on above: Order Comment: Speci men Type: BLOOD SPECIMENOrdering Facility: [facility] Address: [address] [place] [address] Result Comment: Silvia mated Glomerular Filtration Rate (eGFR) is calculated using the 2020 CKD-EPI creatinine equation. This equation utilizes serum creatinine, sex, and age as parameters. The creatinine assay has traceable calibration to isotope dilution-mass spectrometry. Refer to KDIGO guidelines for clinical interpretation. In patients with unstable renal function, e.g. those with acute kidney injury, the eGFR may not accurately reflect actual GFR. Performed By: #### 1 9123-9, 17377-5, VENICE ####[facility] [id number] [place] [address] [place] Glucose [Mass/Vol] 82 mg/dL Normal 74-99 [facility] Comment on above: Order Comment: Harvey burns Type: BLOOD SPECIMENOrdering Facility: [facility] Address: [address] [place] [address] Result Comment: The [place] Diabetes Association (ADA) provides guidance for cutoff values for fasting glucose and random glucose. The ADA defines fasting as no caloric intake for at least 8 hours. Fasting plasma glucose results between 100 to 125 mg/dL indicate increased risk for diabetes (prediabetes). Fasting plasma glucose results greater than or equal to 126 mg/dL meet the criteria for diagnosis of diabetes. In the absence of unequivocal hyperglycemia, results should be confirmed by repeat testing. In a patient with classic symptoms of hyperglycemia or hyperglycemic crisis, random plasma glucose results greater than or equal to 200 mg/dL meet the criteria for diagnosis of diabetes. Reference: Standards of Medical Care in Diabetes 2016, [place] Diabetes Association. Diabetes Care. 2016.39(Suppl 1). Performed By: #### 1 9123-9, 19311-5, VENICE ####[facility] [id number] [place] [address] [place] Potassium [Moles/Vol] 4.3 mmol/L Normal 3.7-5.1 [facility] Comment on above: Order Comment: Harvey burns Type: BLOOD SPECIMENOrdering Facility: [facility] Address: [address] [address] Performed By: #### 1 9123-9, 79794-2, VENICE ####[facility] [id number] [place] [address] [place] Protein [Mass/Vol] 6.6 g/dL Normal 6.3-8.0 [facility] Comment on above: Order Comment: Harvey burns Type: BLOOD SPECIMENOrdering Facility: [facility] Address: [address] [address] Performed By: #### 1 9123-9, 31379-3, VENICE ####[facility] [id number] [place] [address] [place] Sodium [Moles/Vol] 133 mmol/L Low 136-144 [facility] Comment on above: Order Comment: Speci men Type: BLOOD SPECIMENOrdering Facility: [facility] Address: [address] [place] [address] Performed By: #### 1 9123-9, , VENICE ####[facility] [id number] [place] [address] [place] Urea nitrogen [Mass/Vol] 18 mg/dL Normal 9-24 [facility] Comment on above: Order Comment: Speci men Type: BLOOD SPECIMENOrdering Facility: [facility] Address: [address] [place] [address] Performed By: #### 1 9123-9, , VENICE ####[facility] [id number] [place] [address] [place] Magnesium SerPl-mCncon 04-19 Magnesium [Mass/Vol] 2.1 mg/dL Normal 1.7-2.3 [facility] Comment on above: Order Comment: Speci men Type: BLOOD SPECIMENOrdering Facility: [facility] Address: [address] [place] [address] Performed By: #### 1 9123-9, , VENICE ####[facility] [id number] [address] [place] OCCULT BLD EXAM-DIAGon 04-19 OCCULT BLD EXAM-DIAG Negative Normal [facility] Comment on above: Performed By: #### O BDX ####[facility] [id number] [address] [place] THERAPY NTon 04-19-2022 THERAPY NT HNO ID: [id number] Author: Pradip Donahue OT/L Service: Occupational Therapy Author Type: Occupational Therapist Type: Therapy (PT/OT/Speech/Resp) Filed: 04/19/2022 10:38 AM Note Text: Occupational Therapy Evaluation SERVICE DATE: 04/19/2022 SERVICE TIME: 905 to 954 ROOM: [place] [address] Recommended Discharge Disposition: Subacute/SNF Recommended Discharge Disposition Due to: Patient requires daily, facility-based rehabilitation from at least one discipline due to:;ADL impairment resulting in caregiver dependence Anticipated Discharge Needs: Physical Assist at Home Physical Assist at Home for: Transfers;Ambulation;Cl eaning;Laundry;Meals;Me dication Management;Safety;Self Care;Shopping;Transport ation;Finances OT 6 Clicks Score: 15 Isolation Type: Contact AND Droplet Precautions-Plus Eyewear Current Hospital Course: admitted to [facility] Reason for Hospital Admission: fall/ +COVID Relevant Past Medical History: anemia, HTN Response to Therapy Interventions: Good participation in activities, On-track to achieve discharge goals, Low activity tolerance, Labile vital signs Assessment Comments: Pt presents with decreased ability to safely perform all daily tasks d/t general weakness, decreased safety awareness, impaired standing balance, decreased activity tolerance. Pt requires grossly min-mod A to perform ADLs tasks. Pt will benefit from continued skilled OT services to increase ability to safely perform daily tasks. Continue skilled needs due to: Functional impairment Occupational Therapy Problem List: Education Deficit;Safety Deficits;Impaired Self Care;Decreased Activity Tolerance;Decreased Strength;Functional Mobility Impairment;Balance Impaired Cognition/Communication Deficits Orientation Deficits: Confused Responsiveness: Alert, Awake Follows Commands: 3-step Commands, Cueing Needed Cueing to Follow Commands: Moderate Cognitive Clinical Tests and Screens: 4AT Screening 4AT Screening Assess alertness (ask patient to state their name and address): Normal (fully alert, but not agitated, throughout assessment) Ask patient: age, date of , current year, and current location: No mistakes Ask patient to tell me the months of the year backwards order, starting with April: Starts but states <7 months / refuses to start Acute change or fluctuating mental status: No 4AT Score: 1 Delirium Positive/Negative: Negative Treatment Interventions: Education;Self Care / Home Management;Energy Conservation Training;Strengthening; Functional Mobility Training;Balance Training;Neuromuscular Re-education;Cognitive Training Plan for next visit: Bathing training, Chair/commode transfer training, Bed mobility, Energy conservation, Standing tolerance, Standing balance, Sitting tolerance, Sitting balance, Sit to stand transfers, Shower/tub transfer training, Positioning training Home Environment Patient Lives With: Self/Alone Assistance Available: PRN (Friend, Virgil, is available to assist) Entry To Home: No Stairs Number Of Stairs To Bed/Bath: 0 Tub/Shower Type: Traditional tub/shower with grab bars Laundry: Sister Completes Equipment Owned: Grab Bars-Shower;Grab Bars-Toilet;Hand Held Shower;Cane;Commode-Rogers sed;Shower Chair Prior Functional Level: History of Falls;Required Assistance Assistance Required With: Cleaning;Laundry;Shoppi ng;Transportation;Self Care;Meals Prior Functional Level Comments: Pt reports living in 1st level apartment, requiring assistance with laundry, cleaning, meals, transportation, shopping. Pt reports performing Self care independently, using cane/walker for mobility. Baseline Cognition: Oriented to self;Oriented to place;Oriented to time;Confused Current and/or Former Occupation: Worked at a [employer] Highest Level of Education: (did not report) Occupational Factors Life Roles: Family Member;Friend Identified Strengths: Involvement in Hobbies/Leisure Activities;Access to Healthcare Identified Barriers: Difficulty with ADLs/IADLs Patient Report: agreed to OT CURRENT FUNCTIONAL STATUS: Most recent performance Current Activities of Daily Living Assist Level Additional Information Feeding Set Up Grooming Set Up Bathing Upper Body Minimal Assistance Bathing Lower Body Moderate Assistance Dressing Upper Body Minimal Assistance Dressing Lower Body Moderate Assistance Toileting Moderate Assistance Instrumental Activities of Daily Living Assist Level Additional Information Meal/Beverage Prep Cleaning Laundry Medication Management with Strategies Functional Mobility Assist Level Additional Information Rolling Contact Guard Assistance Supine to Sit Minimal Assistance Sit to Supine Minimal Assistance Scooting Contact Guard Assistance Sit to Stand Minimal Assistance Stand to Sit Minimal Assistance Bed to Chair Toilet/Commode Shower Functional Mobility Moderate Assistance Hand Held Assist Blank cain in (more content not included)... Normal [facility] TROPONIN Ton 04-19-2022 Troponin T.cardiac [Mass/Vol] ug/L Normal 0.000-0.029 [facility] Comment on above: Order Comment: Speci men Type: BLOOD SPECIMENOrdering Facility: [facility] Address: [address] [place] [id number] Performed By: #### 1 9123-9, 20874-3, VENICE ####[facility] [id number] [address] URINALYSIS, REFLEX MICROSCOP ICon 04-19-2022 Bacteria LM.HPF (Urine sed) [#/Area] Rare Abnormal None Seen [facility] Comment on above: Order Comment: Speci men Type: BLOOD SPECIMEN Order[facility] Facility[facility] Address: [address] [place] [address] Performed By: #### 2 8, #### [facility] CLIA [id number] [address] Bilirubin Ql (U) Negative Normal Negative [facility] Comment on above: Order Comment: Speci men Type: BLOOD SPECIMEN [facility] Address: [address] [place] [address] Performed By: #### 2 4322-12, #### [facility] CLIA [id number] [address] Clarity (Unsp spec) Clear Normal Clear [facility] Comment on above: Order Comment: Speci men Type: BLOOD SPECIMEN Order[facility] Facility[facility] Address: [address] [place] [address] Performed By: #### 2 4322-12, #### [facility] CLIA [id number] [address] Color (U) Yellow Normal Yellow [facility] Comment on above: Order Comment: Speci men Type: BLOOD SPECIMEN Ordering Facility[facility] Address: [address] [address] Performed By: #### 2 4322-12, #### [facility] CLIA [id number] [address] Glucose Test strip (U) [Mass/Vol] Negative Normal Negative [facility] Comment on above: Order Comment: Speci men Type: BLOOD SPECIMEN Order[facility] Facility[facility] Address: [address] [place] [address] Performed By: #### 2 4322-12, #### [facility] CLIA [id number] [address] Hemoglobin Ql (U) Trace Abnormal Negative [facility] Comment on above: Order Comment: Speci men Type: BLOOD SPECIMEN Order[facility] Facility: [facility] Address: [address] [place] [address] Performed By: #### 2 8, #### [facility] CLIA [id number] [address] [place] Ketones Ql (U) Trace Abnormal Negative [facility] Comment on above: Order Comment: Speci men Type: BLOOD SPECIMEN Order[facility] Facility: [facility] Address: [address] [place] [address] Performed By: #### 2 4322-12, #### [facility] CLIA [id number] [address] Leukocyte esterase Test strip Ql (U) Negative Normal Negative [facility] Comment on above: Order Comment: Speci men Type: BLOOD SPECIMEN Ordering Facility: [facility] Address: [address] [place] [address] Performed By: #### 2 4322-12, #### [facility] CLIA [id number] [address] Nitrite Ql (U) Negative Normal Negative [facility] Comment on above: Order Comment: Speci men Type: BLOOD SPECIMEN Order[facility] Facility[facility] Address: [address] [place] [address] Performed By: #### 2 4322-12, #### [facility] CLIA [id number] [address] [place] pH (U) 5.5 [pH] Normal 5.0-8.0 [facility] Comment on above: Order Comment: Speci men Type: BLOOD SPECIMEN Ordering Facility[facility] Address: [address] [address] Performed By: #### 2 4322-12, #### [facility] CLIA [id number] [address] Protein (U) [Mass/Vol] Trace Abnormal Negative [facility] Comment on above: Order Comment: Speci men Type: BLOOD SPECIMEN Ordering Facility[facility] Address: [address] [place] [address] Performed By: #### 2 4328, #### [facility] CLIA [id number] [address] [place] RBC LM.HPF (Urine sed) [#/Area] 0-3 /HPF Normal 0-3 /HPF [facility] Comment on above: Order Comment: Speci men Type: BLOOD SPECIMEN Ordering Facility: [facility] Address: [address] [place] [address] Performed By: #### 2 8, #### [facility] CLIA [id number] [address] Specific gravity (U) [Rel density] 1.025 Normal 1.005-1.030 [facility] Comment on above: Order Comment: Speci men Type: BLOOD SPECIMEN [facility] Address: [address] [place] [address] Performed By: #### 2 8, #### [facility] CLIA [id number] [address] Urobilinogen Ql (U) 0.2 EU/dL Normal 0.2-1.0 EU/dL [facility] Comment on above: Order Comment: Speci men Type: BLOOD SPECIMEN Ordering Facility: [facility] Address: [address] [place] [address] Performed By: #### 2 8, #### [facility] CLIA [id number] [address] WBC LM.HPF (Urine sed) [#/Area] 0-5 /HPF Normal 0-5 /HPF [facility] Comment on above: Order Comment: Speci men Type: BLOOD SPECIMEN Ordering Facility: [facility] Address: [address] [place] [address] Performed By: #### 2 4323-8, 15867-5 #### [facility] CLIA [id number] [address] [facility] ALLIED HEALTHon 04-18-2022 ALLIED HEALTH HNO ID: [id number] Author: RT Teressa(R) Service: Radiology Author Type: Technologist Type: Allied Health Filed: 04/18/2022 12:19 AM Note Text: Radiology Service Progress Note DATE OF SERVICE: April 18, 2022 TIME: 12:18 AM PATIENT IDENTITY VERIFICATION COMPLETED USING TWO (2) STANDARD IDENTIFIERS: Name and Date of confirmed by patient verbally and Name and Date of confirmed by identification band. FALL SCREENING: Has the patient had 2 falls in the last year or 1 fall with injury or currently using an Ambulatory Assistive Device (Walker, Cane, Wheelchair, Crutches, etc.)? Inpatient: Screened on floor PATIENT GENDER DATA: Male PATIENT RELEVANT IMPLANT DATA REVIEWED: Not Applicable ALLERGIES: Reviewed and unchanged CONTRAST ALLERGY: NO. EXAM: CT -CONTRAST INDUCED NEPHROPATHY RISK FACTORS: Patient age > 60 years CREATININE: Creatinine Date Value Ref Range Status 04/17/2022 0.70 (L) 0.73 - 1.22 mg/dL Final 08/23/2021 1.14 0.73 - 1.22 mg/dL Final 02/28/2021 0.82 0.73 - 1.22 mg/dL Final Estimated Glomerular Filtration Rate Date Value Ref Range Status 04/17/2022 93 >=60 mL/min/1.73m? Final Comment: Estimated Glomerular Filtration Rate (eGFR) is calculated using the 2020 CKD-EPI creatinine equation. This equation utilizes serum creatinine, sex, and age as parameters. The creatinine assay has traceable calibration to isotope dilution-mass spectrometry. Refer to KDIGO guidelines for clinical interpretation. In patients with unstable renal function, e.g. those with acute kidney injury, the eGFR may not accurately reflect actual GFR. eGFR- Date Value Ref Range Status 02/28/2021 >60 Final P.O.C.T. RESULTS: POC done: Yes, See Lab Tab April 18, 2022 TREATMENT: N/A PERIPHERAL IV DATA: Inpatient - refer to LDA documentation RADIOLOGY DEPARTMENT: CT; Exam(s) Completed: PE Study SIGNATURE: RT Teressa(R) PATIENT NAME: Dane Martinez DATE: April 18, 2022 TIME: 12:18 AM [facility] CASE MGT INIT [place] 2021 CASE MGT INIT [facility] HNO ID: [id number] Author: Gabi Erwin RN Service: ? Author Type: Registered Nurse Type: Care Mgt Initial Assessment Filed: 04/18/2022 1:35 PM Note Text: CARE MANAGEMENT: ASSESSMENT AND DISCHARGE PLAN SERVICE DATE: April 18, 2022 SERVICE TIME: 1:21 PM PRIMARY CARE PHYSICIAN: Torres Erwin MD Primary Contact: Extended Emergency Contact Information Primary Emergency Contact: Irena Molina Mobile Relation: Relative Secondary Emergency Contact: edouard saucedo Mobile Relation: Relative ADMISSION STATUS: Observation Insurance Provider: [employer] NEEDS PRIOR TO DISCHARGE Needs Prior to Discharge: Accepting Facility;Home Care Order;Facility or Agency Choices;OT/PT Evaluation;Insurance Authorization;Other: See Comment;Discharge Transportation (medical clearance) POTENTIAL TRANSITION PLANS To Be Determined Based on clinical judgement, Care Management will address the following needs: Medical;Functional Patient's perception of need for this admission: Fall ADVANCE DIRECTIVES Current Advance Directive: None Automotive Technology Instructor Attempted to Assist with AD Completion: Yes Action: Patient Unwilling MS/BEHAVIOR Baseline Mental Status Prior to this Illness what was the patient's Baseline Mental Status?: Alert AND Oriented;Forgetful Prior to this illness, has anyone described the patient having any of the following behaviors?: Not Applicable Relationship of the informant to the patient:: Self READMISSION Last Discharge Date: 04/17/22 Is this Within the Past 30 days? 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 scores in the EMR?: Yes Situation: Frequent falls in home Recommendation: PT/OT pending Any potential risks related to substance abuse and/or behavioral health?: No Based on clinical judgement, Care Management will address the following needs: Medical;Functional CAREGIVER ASSESSMENT Caregiver is ready, willing and able to meet the patient's needs as recommended by the inter-professional team:: Other: See Comment (TBD) Patient's transition needs and plan for meeting these needs: DC needs TBD MEDICAL Medical Needs: Fall risk or frequent falls Health Issues Impacting Discharge Plan: Newly diagnosed;Chronic Newly Diagnosed: +Covid Chronic: Hx legally blind Medication Adherance I am convinced of the importance of my prescription medication: 0 - Agree Completely I worry that my prescription medication will do more harm than good to me : 0 - Disagree Mostly I feel financially burdened by my tpc-lz-debahr expenses for my prescription medication:: 0 - Disagree Mostly Risk Score: 0 Patient is categorized as: Low risk < 2 No social discharge barriers identified at this time. No behavioral/cognitive discharge barriers identified at this time. FREEDOM OF CHOICE EXPLAINED: TBD Are you interested in bedside delivery of your medications? Yes ASSESSMENT AND PLAN: EMR reviewed. RNCM spoke with patient, introduced self and role. 81 y/o admitted after a fall/ +COVID. Lives alone in a single story apartment. Legally blind. Reportedly independent with ADLs/ ambulates with walker. Manages own medication Does not drive. Relies on [employer] (patient privately pays) who is a friend/neighbor for transportation. Receives MOW 5 days a wk. Patient gave verbal mission for CM to contact Irena. Irena is patient's niece and closest family member involved with patient care. Reports they have been trying to encourage patient to move into an AL for quite some time and patient has been adamantly refusing. Irena assists with grocery shopping as needed. States patient is a hoarder and one reason he continues to decline AL placement. Strongly believes it is unsafe for patient to return home. Aware PT/OT pending and patient will need to be agreeable. Possible APS report on DC CM department will continue to follow/assist for dc needs. SIGNATURE: Gabi Erwin RN PATIENT NAME: Dane Cueva DATE: April 18, 2022 TIME: 1:21 PM CONTACT #: [id number] Normal [facility] CBC panel Auto (Bld)on 04-18 Erythrocyte distribution width (RBC) [Ratio] 14.1 % Normal 11.5-15.0 [facility] Comment on above: Order Comment: Harvey burns Type: BLOOD SPECIMEN Ordering Facility: [facility] Address: [address] [place] [address] Performed By: #### 2 4328, #### [facility] CLIA [id number] [address] Hematocrit (Bld) [Volume fraction] 41.0 % Normal 39.0-51.0 [facility] Comment on above: Order Comment: Harvey burns Type: BLOOD SPECIMEN Ordering Facility: [facility] Address: [address] [place] [address] Performed By: #### 2 8, #### [facility] CLIA [id number] [address] [facility] Hemoglobin (Bld) [Mass/Vol] 13.9 g/dL Normal 13.0-17.0 [facility] Comment on above: Order Comment: Truei grant Type: BLOOD SPECIMEN Ordering Facility: [facility] Address: [address] [place] [address] Performed By: #### 2 4322-12, #### [facility] CLIA [id number] [address] [place] [facility] MCH (RBC) [Entitic mass] 31.7 pg Normal 26.0-34.0 [facility] Comment on above: Order Comment: Speci men Type: BLOOD SPECIMEN Ordering Facility: [facility] Address: [address] [place] [address] Performed By: #### 2 4322-12, #### [facility] CLIA [id number] [address] MCHC (RBC) [Mass/Vol] 33.9 g/dL Normal 30.5-36.0 [facility] Comment on above: Order Comment: Speci men Type: BLOOD SPECIMEN Ordering Facility: [facility] Address: [address] [address] Performed By: #### 2 4322-12, #### [facility] CLIA [id number] [address] MCV (RBC) [Entitic vol] 93.4 fL Normal 80.0-100.0 [facility] Comment on above: Order Comment: Speci men Type: BLOOD SPECIMEN Ordering Facility: [facility] Address: [address] [address] Performed By: #### 2 4322-12, #### [facility] CLIA [id number] [address] [place] Nucleated RBC (Bld) [#/Vol] 10*3/uL Normal <0.01 [facility] Comment on above: Order Comment: Speci men Type: BLOOD SPECIMEN Ordering Facility: [facility] Address: [address] [address] Performed By: #### 2 4322-12, #### [facility] CLIA [id number] [address] [place] [facility] Platelet mean volume (Bld) [Entitic vol] 10.7 fL Normal 9.0-12.7 [facility] Comment on above: Order Comment: Speci men Type: BLOOD SPECIMEN Ordering Facility: [facility] Address: [address] [address] Performed By: #### 2 4322-12, #### [facility] CLIA [id number] [address] Platelets (Bld) [#/Vol] 140 10*3/uL Low 150-400 [facility] Comment on above: Order Comment: Speci men Type: BLOOD SPECIMEN Ordering Facility: [facility] Address: [address] [place] [address] Performed By: #### 2 4322-12, #### [facility] CLIA [id number] [address] [place] RBC (Bld) [#/Vol] 4.39 10*6/uL Normal 4.20-6.00 [facility] Comment on above: Order Comment: Speci men Type: BLOOD SPECIMEN Ordering Facility: [facility] Address: [address] [place], [place] [id number] Performed By: #### 2 4323-8, 65677-4 #### [facility] CLIA [id number] [address] [place] [address] [facility] WBC (Bld) [#/Vol] 4.09 10*3/uL Normal 3.70-11.00 [facility] Comment on above: Order Comment: Speci men Type: BLOOD SPECIMEN Ordering Facility: [facility] Address: [address] [place] [address] Performed By: #### 2 4323-8, 28392-0 #### [facility] CLIA [id number] [address] [facility] CK SerPl-cCncon 04-18-2022 CK [Catalytic activity/Vol] 117 U/L Normal 51-298 [facility] Comment on above: Order Comment: Speci men Type: BLOOD SPECIMENOrdering Facility: [facility] Address: [address] [place] [address] Performed By: #### 3 016-3, 81814-9, 2157-6, VENICE, 1987- ####[facility] [id number] [address] [facility] CONSULTon 04-18-2022 CONSULT HNO ID: [id number] Author: Ankit Sheikh MD Service: Infectious Disease Author Type: Physician Type: Consults Filed: 04/18/2022 4:18 PM Note Text: INFECTIOUS DISEASE INITIAL CONSULT SERVICE DATE: 04/18/2022 SERVICE TIME: 11:54 AM REASON FOR CONSULT: Dr Edge Subjective Patient is seen at the request of Dr Edge My final recommendations will be communicated back to the requesting physician by way of copy of this note or shared electronic medical record. HPI: Dane Anay Martinez who is a 81 year old male with a past medical history of anemia hypertension presented due to a fall apparently patient was going out of his bathroom when he lost his balance patient denied any loss of consciousness or any injuries Patient had denied any shortness of breath cough nausea vomiting diarrhea but complained of generalized weakness and low back pain In [facility] COVID PCR was positive Chest x-ray showed bibasilar atelectasis versus airspace disease patient was given IV fluids and Tylenol ID consulted for additional recommendations PAST MEDICAL HISTORY Diagnosis Date Anemia HTN (hypertension) 08/12/2014 Left inguinal hernia 04/02/2016 Recurrent right inguinal hernia 04/02/2016 PAST SURGICAL HISTORY Procedure Laterality Date EXC PILONID CYST SMPL 60 HERNIA REPAIR W/MESH 04/09/16 lap bilateral PAST SURGICAL HISTORY OF 2013 right inguinal hernia Social History Tobacco Use Smoking status: Never Smokeless tobacco: Never Vaping Use Vaping Use: Never used Substance Use Topics Alcohol use: No Drug use: No FAMILY HISTORY Problem Relation Age of Onset Coronary Artery Disease Sister 64 Diabetes Brother Hypertension Sister Hypertension Sister Heart Father Immunization History Administered Date(s) Administered COVID-19 original vaccine, age 12+ yr, monovalent (Operax - IGNACIO TOP) 06/20/2021 COVID-19 original vaccine, age 12+ yr, monovalent ([employer]lex[employer] - PURPLE TOP) 10/17/2020 11/07/2020 01/02/2022 Influenza Recombinant Seasonal Inj PresFree 08/08/2015 Influenza Seasonal - High Dose - Age 65+ 03/08/2015 03/04/2016 03/12/2018 03/10/2019 03/04/2020 02/27/2022 Pneumococcal-13 Vac Conjugate 08/12/2014 03/12/2018 03/11/2019 Pneumovax 04/01/2011 02/23/2018 Tdap (Age 7+) 11/03/2018 influenza, high-dose, quadrivalent vaccine (FLUZONE HIGH DOSE QUADRIVALENT) 03/11/2020 Current Facility-Administered Medications Medication Dose Route Frequency iv contrast (radiology procedure) INTRAVENOUS DIRECTED PRN acetaminophen 1,000 mg tab(s) (TYLENOL) 1,000 mg ORAL q 8 H heparin 5,000 Units injection 5,000 Units SUBCUTANEOUS q 12 H NaCl 0.9% iv flush bag 20 mL INTRAVENOUS PRN sodium chloride 0.9 % (flush) 3-5 mL (BD POSIFLUSH) 3-5 mL INTRAVENOUS q 12 H lidocaine 4 % 2 Patch (SALONPAS) 2 Patch TRANSDERMAL DAILY AT 9 PM And lidocaine patch - REMOVE OTHER DAILY And lidocaine - VERIFY PATCH OTHER q 8 H keTORolac 15 mg injection (TORADOL) 15 mg INTRAVENOUS q 6 H PRN guaiFENesin 600 mg ER tab(s) (MUCINEX) 600 mg ORAL q 12 H PRN albuterol HFA 90 mcg/actuation 2 Puff (PROVENTIL HFA, VENTOLIN HFA) 2 Puff INHALATION q 4 H PRN lisinopril 20 mg tab(s) (ZESTRIL, PRINIVIL) 20 mg ORAL DAILY tamsulosin 0.4 mg cap(s) (FLOMAX) 0.4 mg ORAL DAILY ferrous sulfate 325 mg tab(s) 325 mg ORAL DAILY WITH BREAKFAST ALLERGIES No Known Allergies REVIEW OF SYSTEMS: ROS checked in details x 10 systems and is negative except as noted in the HPI. All qs answered. Objective PHYSICAL EXAM: Temp (24hrs), Av.6 ?C (97.8 ?F), Min:36.3 ?C (97.3 ?F), Max:36.8 ?C (98.2 ?F) BP 153/73 Pulse 68 Temp 36.8 ?C (98.2 ?F) (Oral) Resp 15 SpO2 99% GENERAL APPEARANCE: Alert, NAD SKIN: No rashes NECK: Supple BACK: no CVAT. LUNGS: Clear HEART: Regular rate/rhythm, normal heart sounds, and no murmurs. ABDOMEN: Soft, non tender, no palpable masses, normal bowel sounds. EXTREMITIES: No edema or tenderness: NEURO: Awake, alert DATA: Diagnostic tests reviewed for today's visit: Labs: Recent Labs 04/18/22 0623 04/17/22 1911 WBC 4.09 5.04 HB 13.9 13.3 HCT 41.0 39.8 PLT 140* 160 NA 129* 127* K 3.9 4.7 CHLOR 94* 91* CO2 24 26 BUN 14 14 CREAT 0.68* 0.70* UA: Lab Results Component Value Date SPGR 1.020 04/17/2022 SPGR 1.006 07/02/2019 UGLUC Negative 04/17/2022 UGLUC Negative 07/02/2019 UBILI Negative 04/17/2022 UBILI Negative 07/02/2019 UKET Negative 04/17/2022 UKET Negative 07/02/2019 UHB Trace 04/17/2022 UHB 1+ 07/02/2019 UPROT Negative 04/17/2022 UPROT Negative 07/02/2019 UROBIL 0.2 07/15/2016 UWBC 0-5 /HPF 04/17/2022 UWBC >25 07/02/2019 WSR: No results found for: WSR Impression/Recommendati ons Principal Problem: Acute metabolic encephalopathy Generalized weakness Hyponatremia T12 compression fracture COVID-19 infection Fully vaccinated for COVID Plan Will initiate 3 dose series of remdes (more content not included)... Normal [facility] CRP SerPl-mCncon 04-18-2022 CRP [Mass/Vol] 1.2 mg/dL High <0.9 [facility] Comment on above: Order Comment: Speci men Type: BLOOD SPECIMENOrdering Facility: [facility] Address: [address] [place], [place] [id number] Performed By: #### 3 016-3, 45302-4, 2157-6, VENICE, 1987- ####[facility] [id number] [place] [address] [facility] [place] CT CHEST W IVCON PEon 2021 CT CHEST W IVCON PE * * *Final Report* * * DATE OF EXAM: Apr 18 2022 12:59AM [facility] 0540 - CT CHEST W IVCON PE / PROCEDURE REASON: Pulmonary embolism (PE) suspected, high prob * * * * Physician Interpretation * * * * EXAMINATION: CHEST CT WITH CONTRAST (PULMONARY EMBOLISM PROTOCOL) CLINICAL HISTORY: Shortness of breath. Technique: Spiral CT acquisition of the chest from the thoracic inlet to the upper abdomen following IV contrast. Axial 1 and 3 mm thick slices plus coronal and sagittal reformatted images. MQ: CTCP_5 Contrast: 67 mL Omnipaque [address] Radiation dose: Integrated Dose-length product (DLP) for this visit = 307 mGy*cm CT Dose Reduction Employed: Automated exposure control (AEC) Comparison: Chest 04/17/2022 RESULT: Limitations: Limited assessment of subsegmental branches due to artifact from motion and noise. Evaluation for thromboembolic disease: - Right heart chambers: No thromboembolic disease. - Main pulmonary arteries: No thromboembolic disease. - Lobar pulmonary arteries: No thromboembolic disease. - Segmental pulmonary arteries: No thromboembolic disease. - Subsegmental pulmonary arteries: No thromboembolic disease within limitations. - Additional pulmonary artery findings: The main pulmonary artery is normal in caliber. Lines, tubes, and devices: None. Lung parenchyma and airways: Mild motion limitation. Central airways are clear. Mild bronchial wall thickening. Dependent groundglass opacities favored to represent atelectasis. Mild mosaic attenuation pattern, most pronounced in the lower lungs. No other consolidation. Pleural space: No pleural effusion. No pleural thickening. Lower neck, lymph nodes, and mediastinum: Neck base unremarkable. No axillary adenopathy. No significant mediastinal or hilar adenopathy. Air-fluid level in the esophagus. Heart, pericardium, and thoracic vessels: Heart size at upper limits of normal. Normal caliber thoracic aorta with left arch. Moderate atherosclerosis. Moderate coronary artery calcifications. Bones and soft tissues: Advanced degenerative changes in both shoulders. Bones are demineralized. Degenerative changes throughout the spine. Moderate compression deformity of T12 vertebral body with age indeterminate superior endplate fracture. Upper abdomen: Low-attenuation lesions in the liver are too small to characterize, however likely benign. There are cortical cysts in both kidneys with additional subcentimeter lesions that are too small to characterize. The kidneys are incompletely imaged. The stomach is distended with gas and ingested material. There are calcified granulomata in the spleen. Gas Station Clerk (topogram) images: No additional findings. IMPRESSION: No evidence for acute pulmonary embolism. Limited assessment of subsegmental pulmonary arteries. Mild mosaic attenuation pattern the lungs suggestive of small airways or small vessel disease. Air-fluid level in the esophagus suggestive of reflux. Age-indeterminate T12 vertebral body compression fracture. Additional findings as detailed. Worm Picker: AMANDA Transcribe Date/Time: Apr 18 2022 1:16A Dictated by : PRISCILLA IQBAL DO This examination was interpreted and the report reviewed and electronically signed by: PRISCILLA IQBAL DO on Apr 18 2022 1:30AM EST [id number] Normal [facility] Comprehensive metabolic 2000 panelon 04-18-2022 Albumin [Mass/Vol] 3.8 g/dL Low 3.9-4.9 [facility] Comment on above: Order Comment: Speci men Type: BLOOD SPECIMEN Ordering Facility: [facility] Address: [address] [address] Performed By: #### 2 4322-8, #### [facility] CLIA [id number] [address] [place] [address] [place] ALP [Catalytic activity/Vol] 103 U/L Normal 38-113 [facility] Comment on above: Order Comment: Speci men Type: BLOOD SPECIMEN Ordering Facility: [facility] Address: [address] [address] Performed By: #### 2 8, #### [facility] CLIA [id number] [address] [place] [address] [place] ALT [Catalytic activity/Vol] 9 U/L Low 10-54 [facility] Comment on above: Order Comment: Speci men Type: BLOOD SPECIMEN Ordering Facility: [facility] Address: [address] [address] Performed By: #### 2 8, #### [facility] CLIA [id number] [address] [place] [address] [place] Anion gap [Moles/Vol] 12 mmol/L Normal 9-18 [facility] Comment on above: Order Comment: Speci men Type: BLOOD SPECIMEN Ordering Facility: [facility] Address: [address] [address] Performed By: #### 2 8, #### [facility] CLIA [id number] [address] [place] AST [Catalytic activity/Vol] 17 U/L Normal 14-40 [facility] Comment on above: Order Comment: Speci men Type: BLOOD SPECIMEN Ordering Facility: [facility] Address: [address] [address] Performed By: #### 2 8, #### [facility] CLIA [id number] [address] [place] [address] [place] Bilirubin [Mass/Vol] 0.6 mg/dL Normal 0.2-1.3 [facility] Comment on above: Order Comment: Speci men Type: BLOOD SPECIMEN Ordering Facility: [facility] Address: [address] [address] Performed By: #### 2 4328, #### [facility] CLIA [id number] [address] [place] [facility] Calcium [Mass/Vol] 8.5 mg/dL Normal 8.5-10.2 [facility] Comment on above: Order Comment: Speci men Type: BLOOD SPECIMEN Ordering Facility: [facility] Address: [address] [address] Performed By: #### 2 4328, #### [facility] CLIA [id number] [address] [place] [address] [place] Chloride [Moles/Vol] 91 mmol/L Low 97-105 [facility] Comment on above: Order Comment: Speci men Type: BLOOD SPECIMEN Ordering Facility: [facility] Address: [address] [address] Performed By: #### 2 4322-12, #### [facility] CLIA [id number] [address] [place] [address] [place] CO2 [Moles/Vol] 25 mmol/L Normal 22-30 [facility] Comment on above: Order Comment: Speci men Type: BLOOD SPECIMEN Ordering Facility: [facility] Address: [address] [address] Performed By: #### 2 4328, #### [facility] CLIA [id number] [address] [place] [address] [place] Creatinine [Mass/Vol] 0.70 mg/dL Low 0.73-1.22 [facility] Comment on above: Order Comment: Speci men Type: BLOOD SPECIMEN Ordering Facility: [facility] Address: [address] [address] Performed By: #### 2 43207-31, #### [facility] CLIA [id number] [address] [place] ESTIMATED GLOMERULAR FILTRATION RATE 93 mL/min/1.73m??? Normal >=60 [facility] Comment on above: Order Comment: Harvey burns Type: BLOOD SPECIMEN Ordering Facility: [facility] Address: [address] [place], [place] [id number] Result Comment: Silvia mated Glomerular Filtration Rate (eGFR) is calculated using the 2020 CKD-EPI creatinine equation. This equation utilizes serum creatinine, sex, and age as parameters. The creatinine assay has traceable calibration to isotope dilution-mass spectrometry. Refer to KDIGO guidelines for clinical interpretation. In patients with unstable renal function, e.g. those with acute kidney injury, the eGFR may not accurately reflect actual GFR. Performed By: #### 2 4323-8, #### [facility] CLIA [id number] [address] [place] [address] [place] Glucose [Mass/Vol] 80 mg/dL Normal 74-99 [facility] Comment on above: Order Comment: Harvey burns Type: BLOOD SPECIMEN Ordering Facility: [facility] Address: [address] [place], [place] [id number] Result Comment: The [place] Diabetes Association (ADA) provides guidance for cutoff values for fasting glucose and random glucose. The ADA defines fasting as no caloric intake for at least 8 hours. Fasting plasma glucose results between 100 to 125 mg/dL indicate increased risk for diabetes (prediabetes). Fasting plasma glucose results greater than or equal to 126 mg/dL meet the criteria for diagnosis of diabetes. In the absence of unequivocal hyperglycemia, results should be confirmed by repeat testing. In a patient with classic symptoms of hyperglycemia or hyperglycemic crisis, random plasma glucose results greater than or equal to 200 mg/dL meet the criteria for diagnosis of diabetes. Reference: Standards of Medical Care in Diabetes 2016, [place] Diabetes Association. Diabetes Care. 2016.39(Suppl 1). Performed By: #### 2 4323-8, #### [facility] CLIA [id number] [address] [place] [id number] [place] Potassium [Moles/Vol] 3.7 mmol/L Normal 3.7-5.1 [facility] Comment on above: Order Comment: Harvey burns Type: BLOOD SPECIMEN Ordering Facility: [facility] Address: [address] [place], [place] [id number] Performed By: #### 2 4323, #### [facility] CLIA [id number] [address] [place] [address] [place] Protein [Mass/Vol] 6.9 g/dL Normal 6.3-8.0 [facility] Comment on above: Order Comment: Speci men Type: BLOOD SPECIMEN Ordering Facility: [facility] Address: [address] [place] [address] Performed By: #### 2 4322-12, #### [facility] CLIA [id number] [address] [place] [address] [place] Sodium [Moles/Vol] 128 mmol/L Low 136-144 [facility] Comment on above: Order Comment: Speci men Type: BLOOD SPECIMEN Ordering Facility: [facility] Address: [address] [place] [address] Performed By: #### 2 4322-12, #### [facility] CLIA [id number] [address] [place] Urea nitrogen [Mass/Vol] 12 mg/dL Normal 9-24 [facility] Comment on above: Order Comment: Speci men Type: BLOOD SPECIMEN Ordering Facility: [facility] Address: [address] [place] [address] Performed By: #### 2 4322-12, #### [facility] CLIA [id number] [address] [place] [address] [place] Albumin [Mass/Vol] 3.9 g/dL Normal 3.9-4.9 [facility] Comment on above: Order Comment: Speci men Type: BLOOD SPECIMENOrdering Facility: [facility] Address: [address] [place] [address] Performed By: #### [place], [address]-6, ####[facility] [id number] [place] [address] [place] ALP [Catalytic activity/Vol] 107 U/L Normal 38-113 [facility] Comment on above: Order Comment: Speci men Type: BLOOD SPECIMENOrdering Facility: [facility] Address: [address] [place] [address] Performed By: #### T NT, , ####[facility] [id number] [place] [address] [place] ALT [Catalytic activity/Vol] 9 U/L Low 10-54 [facility] Comment on above: Order Comment: Speci men Type: BLOOD SPECIMENOrdering Facility: [facility] Address: [address] [place] [address] Performed By: #### T NT, , ####[facility] [id number] [place] [address] [place] Anion gap [Moles/Vol] 11 mmol/L Normal 9-18 [facility] Comment on above: Order Comment: Speci men Type: BLOOD SPECIMENOrdering Facility: [facility] Address: [address] [place] [address] Performed By: #### T NT, , ####[facility] [id number] [place] [address] [place] AST [Catalytic activity/Vol] 19 U/L Normal 14-40 [facility] Comment on above: Order Comment: Speci men Type: BLOOD SPECIMENOrdering Facility: [facility] Address: [address] [place] [address] Performed By: #### T NT, , ####[facility] [id number] [place] [address] [place] Bilirubin [Mass/Vol] 0.7 mg/dL Normal 0.2-1.3 [facility] Comment on above: Order Comment: Speci men Type: BLOOD SPECIMENOrdering Facility: [facility] Address: [address] [place] [address] Performed By: #### T NT, , ####[facility] [id number] [place] [address] [place] Calcium [Mass/Vol] 8.7 mg/dL Normal 8.5-10.2 [facility] Comment on above: Order Comment: Speci men Type: BLOOD SPECIMENOrdering Facility: [facility] Address: [address] [place] [address] Performed By: #### T NT, , ####[facility] [id number] [place] [address] [place] Chloride [Moles/Vol] 94 mmol/L Low 97-105 [facility] Comment on above: Order Comment: Speci men Type: BLOOD SPECIMENOrdering Facility: [facility] Address: [address] [place] [address] Performed By: #### T NT, , ####[facility] [id number] [place] [address] [place] CO2 [Moles/Vol] 24 mmol/L Normal 22-30 [facility] Comment on above: Order Comment: Speci men Type: BLOOD SPECIMENOrdering Facility: [facility] Address: [address] [place] [address] Performed By: #### T NT, , ####[facility] [id number] [place] [address] [place] Creatinine [Mass/Vol] 0.68 mg/dL Low 0.73-1.22 [facility] Comment on above: Order Comment: Speci men Type: BLOOD SPECIMENOrdering Facility: [facility] Address: [address] [place] [address] Performed By: #### T NT, , ####[facility] [id number] [address] [place] ESTIMATED GLOMERULAR FILTRATION RATE 93 mL/min/1.73m??? Normal >=60 [facility] Comment on above: Order Comment: Speci men Type: BLOOD SPECIMENOrdering Facility: [facility] Address: [address] [place] [address] Result Comment: Silvia mated Glomerular Filtration Rate (eGFR) is calculated using the 2020 CKD-EPI creatinine equation. This equation utilizes serum creatinine, sex, and age as parameters. The creatinine assay has traceable calibration to isotope dilution-mass spectrometry. Refer to KDIGO guidelines for clinical interpretation. In patients with unstable renal function, e.g. those with acute kidney injury, the eGFR may not accurately reflect actual GFR. Performed By: #### T NT, , ####[facility] [id number] [place] [address] [place] Glucose [Mass/Vol] 89 mg/dL Normal 74-99 [facility] Comment on above: Order Comment: Harvey burns Type: BLOOD SPECIMENOrdering Facility: [facility] Address: [address] [place], [place] [id number] Result Comment: The [place] Diabetes Association (ADA) provides guidance for cutoff values for fasting glucose and random glucose. The ADA defines fasting as no caloric intake for at least 8 hours. Fasting plasma glucose results between 100 to 125 mg/dL indicate increased risk for diabetes (prediabetes). Fasting plasma glucose results greater than or equal to 126 mg/dL meet the criteria for diagnosis of diabetes. In the absence of unequivocal hyperglycemia, results should be confirmed by repeat testing. In a patient with classic symptoms of hyperglycemia or hyperglycemic crisis, random plasma glucose results greater than or equal to 200 mg/dL meet the criteria for diagnosis of diabetes. Reference: Standards of Medical Care in Diabetes 2016, [place] Diabetes Association. Diabetes Care. 2016.39(Suppl 1). Performed By: #### T NT, , ####[facility] [id number] [place] [address] [place] Potassium [Moles/Vol] 3.9 mmol/L Normal 3.7-5.1 [facility] Comment on above: Order Comment: aHrvey burns Type: BLOOD SPECIMENOrdering Facility: [facility] Address: [address] [place] [address] Performed By: #### T NT, , ####[facility] [id number] [place] [address] [place] Protein [Mass/Vol] 7.0 g/dL Normal 6.3-8.0 [facility] Comment on above: Order Comment: Harvey burns Type: BLOOD SPECIMENOrdering Facility: [facility] Address: [address] [place] [address] Performed By: #### T NT, , ####[facility] [id number] [address] Sodium [Moles/Vol] 129 mmol/L Low 136-144 [facility] Comment on above: Order Comment: Speci men Type: BLOOD SPECIMENOrdering Facility: [facility] Address: [address] [address] Performed By: #### T NT, , ####[facility] [id number] [place] [address] [place] Urea nitrogen [Mass/Vol] 14 mg/dL Normal 02-16 [facility] Comment on above: Order Comment: Speci men Type: BLOOD SPECIMENOrdering Facility: [facility] Address: [address] [place] [address] Performed By: #### T NT, , ####[facility] [id number] [address] [place] D dimer FEU PPP-mCncon 04-18 Fibrin D-dimer FEU (PPP) [Mass/Vol] 3140 ng/mL FEU High <500 [facility] Comment on above: Order Comment: Speci men Type: BLOOD SPECIMEN Ordering [facility] Address: [address] [place] [address] Performed By: #### 4 8065-7 #### [facility] CLIA [id number] [address] [place] Fibrin D-dimer FEU (PPP) [Ma ss/Vol]on 04-18-2022 D DIMER AGE-RELATED CUTOFF 810 ng/mL FEU Normal [facility] Comment on above: Order Comment: Speci men Type: BLOOD SPECIMEN Ordering [facility] Address: [address] [place] [address] Performed By: #### 4 8065-7 #### [facility] CLIA [id number] [address] [place] [address] [place] Folate SerPl-mCncon 04-18-20 22 Folate [Mass/Vol] 12.5 ng/mL Normal >4.7 [facility] Comment on above: Order Comment: Speci men Type: BLOOD SPECIMENOrdering Facility: [facility] Address: [address] [place] [address] Performed By: #### 2 132-9, 60831-9, 2284-8 ####[facility] [id number] [place] [address] [place] Magnesium SerPl-mCncon 04-18 Magnesium [Mass/Vol] 1.9 mg/dL Normal 1.7-2.3 [facility] Comment on above: Order Comment: Speci men Type: BLOOD SPECIMENOrdering Facility: [facility] Address: [address] [place] [address] Performed By: #### T NT, 47599-6, 01356-4 ####[facility] [id number] [address] [place] NT-proBNP SerPl-mCncon 04-18 Natriuretic peptide.B prohormone N-Terminal [Mass/Vol] 1048 pg/mL High <450 [facility] Comment on above: Order Comment: Speci men Type: BLOOD SPECIMENOrdering Facility: [facility] Address: [address] [place] [address] Performed By: #### 3 016-3, 35551-7, 2157-6, VENICE, 1987- ####[facility] [id number] [place] [address] [place] Osmolality SerPlon 2 Osmolality [Osmolality] 266 mosm/kg Low 275-300 [facility] Comment on above: Order Comment: Speci men Type: BLOOD SPECIMENOrdering Facility: [facility] Address: [address] [place] [address] Performed By: #### 2 692-2 ####[facility] LABCLIA [id number] [facility] [id number] [place] Osmolality Uron 04-18-2022 Osmolality (U) [Osmolality] 417 mosm/kg Normal 50-1200 [facility] Comment on above: Order Comment: Speci men Type: URINE SPECIMENOrdering Facility: [facility] Address: [address] [place] [address] Performed By: #### 2 695-5 ####[facility] LABCLIA [id number] [address] [place] Procalcitonin SerPl-mCncon 1 06-18-2021 Procalcitonin [Mass/Vol] 0.06 ng/mL Normal <0.09 [facility] Comment on above: Order Comment: Speci men Type: BLOOD SPECIMENOrdering Facility: [facility] Address: [address] [place] [address] Result Comment: For a guided interpretation of test results, please visit the Change in Procalcitonin Calculator, [email or web address]. Performed By: #### 2 132-9, 90764-3, 2284-8 ####[facility] [id number] [place] [address] [place] Sodium ?Tm Ur-sCncon 022 Sodium Unsp time (U) [Moles/Vol] 109 mmol/L Normal 14-216 [facility] Comment on above: Order Comment: Speci men Type: BLOOD SPECIMEN [facility] Address: [address] [place] [address] Performed By: #### 2 4323-8, 61227-1 #### [facility] CLIA [id number] [address] [place] [address] [place] TROPONIN Ton 04-18-2022 Troponin T.cardiac [Mass/Vol] ug/L Normal 0.000-0.029 [facility] Comment on above: Order Comment: Speci men Type: BLOOD SPECIMENOrdering Facility: [facility] Address: [address] [place] [address] Performed By: #### [place], 18900-8, ####[facility] [id number] [address] Troponin T.cardiac [Mass/Vol] ug/L Normal 0.000-0.029 [facility] Comment on above: Order Comment: Speci men Type: BLOOD SPECIMENOrdering Facility: [facility] Address: [address] [place] [address] Performed By: #### 3 016-3, 42141-8, 215-6, VENICE, 1987-09 ####[facility] [id number] [address] TSH SerPl-aCncon 04-18-2022 TSH Qn 1.430 m[IU]/L Normal 0.270-4.200 [facility] Comment on above: Order Comment: Speci men Type: BLOOD SPECIMENOrdering Facility: [facility] Address: [address] [place] [address] Performed By: #### 3 016-3, 56543-4, 2156, VENICE, 1987-09 ####[facility] [id number] [address] Vit B12 SerPl-mCncon 022 Cobalamin (Vitamin B12) [Mass/Vol] 241 pg/mL Normal 232-1245 [facility] Comment on above: Order Comment: Speci men Type: BLOOD SPECIMENOrdering Facility: [facility] Address: [address] [place] [address] Performed By: #### 2 132-9, 43989-4, 2284-8 ####[facility] [id number] [address] [place] HISTORY PHYSICALon HISTORY PHYSICAL HNO ID: [id number] Author: Juanita Mcintosh APRN.LUNCHEONETTE OPERATOR Service: Hospital Medicine Author Type: Nurse Practitioner Type: HANDP Filed: 04/17/2022 11:03 PM Note Text: Attestation signed by Precious Montalvo MD at 04/17/2022 11:16 PM I reviewed the plan of care and reviewed the note. Plan of care discussed with the AUTOMATED CUTTING MACHINE OPERATOR in detail and I agree with it. Precious Montalvo MD [facility] MEDICINE HISTORY AND PHYSICAL EXAM SERVICE DATE: 04/17/2022 Code Status: Not on file SERVICE TIME: 8:35 PM Primary Care Physician: Torres Erwin MD NIGHT AND WEEKEND COVERAGE: [facility] COVERAGE: Days: [phone], please page attending physician. Nights: [phone], please page [facility] Night coverage pager [phone]. Subjective CHIEF COMPLAINT: fall HPI: 81yo male with PMH anemia, HTN, presents today following a fall at home. Patient reports he was going out of the bathroom with his when he lost his balance and he fell; hitting the top/back of his head. Patient denies LOC or numbness/tingling in BLE. Patient reports he landed on his butt and was on the floor for about 2 hours calling for help. Patient reports he has a call string to pull for help, but he was not close enough to this. Patient reports his friend Virgil assisted him off the floor and patient went to the ED for further evaluation. Patient reports associated complaint is mild generalized weakness, but is unsure the onset of this. Patient is also currently complaining of mild low back pain. Patient has had frequent falls at home in the past 2 years, but has always declined NH placement. Patient denies any respiratory symptoms. No recent travel. No exposure to known sick contacts. In the [facility] ED: CMP- Na 127; Cr 0.70 CBC- abs lymph 0.36 UA- negative COVID + PCR CT Brain/cervical spine- Mild microvascular ischemic changes. Otherwise normal brain. No evidence of acute intracranial processes. No evidence of acute cervical spine fracture. Degenerative changes as discussed above. CT Lumbar spine- 1. Moderate compression fracture of T12 which is age indeterminate. No obvious retropulsed fragment or canal stenosis. This is suspected to be at least new compared to September 2021. No other interval imaging is available. 2. Degenerative changes as detailed above. CXR- Bibasilar atelectasis versus airspace disease. Treatment- IVF, tylenol While in the ED, patient became restless and confused. Event resolved while in the ED. COVID test was positive. CXR ordered along with IVF. Patient remained hemodynamically stable and was transferred to [facility] for further management following fall. PAST MEDICAL HISTORY Diagnosis Date Anemia HTN (hypertension) 08/12/2014 Left inguinal hernia 04/02/2016 Recurrent right inguinal hernia 04/02/2016 PAST SURGICAL HISTORY Procedure Laterality Date EXC PILONID CYST SMPL 60 HERNIA REPAIR W/MESH 04/09/16 lap bilateral PAST SURGICAL HISTORY OF 2013 right inguinal hernia FAMILY HISTORY Problem Relation Age of Onset Coronary Artery Disease Sister 64 Diabetes Brother Hypertension Sister Hypertension Sister Heart Father Social History Tobacco Use Smoking status: Never Smokeless tobacco: Never Vaping Use Vaping Use: Never used Substance Use Topics Alcohol use: No Drug use: No PRIOR TO ADMISSION MEDICATIONS: lisinopril (ZESTRIL, PRINIVIL) 20 mg tablet, TAKE 1 TABLET BY MOUTH EVERY DAY, Disp: 90 tablet, Rfl: 1, 04/17/2022 at 0900 tamsulosin (FLOMAX) 0.4 mg, TAKE 2 CAPSULES BY MOUTH EVERY DAY (Patient taking differently: Take 0.4 mg by mouth once daily.), Disp: 180 capsule, Rfl: 1, 04/16/2022 polyethylene glycol 3350 (MIRALAX, GLYCOLAX) 17 gram packet, Take 1 Packet by mouth once daily. Dissolve dose in 4 - 8 ounces of liquid and take as directed., Disp: , Rfl: , Past Week melatonin 1 mg tablet, Take 1 tablet by mouth daily at bedtime., Disp: , Rfl: , Past Week aspirin 325 mg tablet, Take 325 mg by mouth once daily., Disp: , Rfl: , 04/17/2022 at 0900 ferrous sulfate 325 mg (65 mg iron) tablet, Take 1 tablet by mouth twice daily with meals. (Patient taking differently: Take 325 mg by mouth daily with breakfast.), Disp: 60 tablet, Rfl: 2, 04/17/2022 acetaminophen (TYLENOL) 325 mg tablet, Take 2 tablets by mouth every 6 hours as needed for pain., Disp: 30 tablet, Rfl: 0, Unknown ALLERGIES No Known Allergies REVIEW OF SYSTEM: GENERAL: No weight loss, malaise or fevers HEENT: Negative for frequent or significant headaches, No changes in hearing or vision, no nose bleeds or other nasal problems NECK: Negative for pain and significant neck swelling RESPIRATORY: Negative for cough, hemoptysis, wheezing or shortness of breath CARDIOVASCULAR: Negative for chest pain, leg swelling or palpit (more content not included)... Normal [facility] CNCOon 03-12-2022 CNCO Letter Text Normal [facility] ED PROV NOTEon 09-29-2021 ED PROV NOTE HNO ID: [id number] Author: Abimbola Haynes DO Service: Emergency Medicine Author Type: Physician Type: ED Provider Notes Filed: 09/30/2021 2:00 AM Note Text: ED Provider Note Patient Name: Dane Martinez : 1940 SERVICE DATE: 09/29/21 History Patient presents with: Fall Head Injury 80-year-old male brought in by EMS for concern of mechanical fall. Patient reports that he was wearing slip on shoes today in his kitchen when he lost his footing and fell backwards striking his head and buttocks against the floor. The patient denies loss of consciousness. 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 He called out and a neighbor heard him and lifted him from the floor. The patient reported head and buttock pain to EMS on arrival. He denies neck or back pain. He is not currently on blood thinners or antiplatelet agents. The patient does live alone and has had previous ED visits for falls, he appears as though he is having some difficulty with self-care, but he is awake and alert, oriented and has capacity to make decisions. He is his own decision maker, and states he is not interested in placement or in obtaining home nursing or help. Patient states he does have mild headache, he did not receive any medications prior to arrival. He arrives requesting a brain scan. PAST MEDICAL HISTORY Diagnosis Date - Anemia - HTN (hypertension) 08/12/2014 - Left inguinal hernia 04/02/2016 - Recurrent right inguinal hernia 04/02/2016 PAST SURGICAL HISTORY Procedure Laterality Date - EXC PILONID CYST SMPL 60 - HERNIA REPAIR W/MESH 04/09/16 lap bilateral - PAST SURGICAL HISTORY OF 2013 right inguinal hernia FAMILY HISTORY Problem Relation Age of Onset - Coronary Artery Disease Sister 64 - Diabetes Brother - Hypertension Sister - Hypertension Sister - Heart Father Social History Tobacco Use - Smoking status: Never Smoker - Smokeless tobacco: Never Used Vaping Use - Vaping Use: Never used Substance and Sexual Activity - Alcohol use: No - Drug use: No - Sexual activity: Not on file ALLERGIES No Known Allergies Review of Systems Constitutional: Negative for chills, fatigue and fever. HENT: Negative for congestion, rhinorrhea, sinus pressure and sore throat. Eyes: Negative for photophobia and visual disturbance. Respiratory: Negative for cough, chest tightness, shortness of breath and wheezing. Cardiovascular: Negative for chest pain, palpitations and leg swelling. Gastrointestinal: Negative for abdominal distention, abdominal pain, constipation, diarrhea, nausea and vomiting. Genitourinary: Negative for decreased urine volume, difficulty urinating, dysuria, frequency, hematuria and urgency. Musculoskeletal: Positive for arthralgias (Buttock/bilateral hip pain). Negative for back pain, myalgias and neck pain. Skin: Negative for color change, rash and wound. Allergic/Immunologic: Negative for immunocompromised state. Neurological: Positive for headaches. Negative for dizziness, weakness and light-headedness. Hematological: Does not bruise/bleed easily. Psychiatric/Behavioral: Negative for agitation and confusion. Physical Exam Vitals [09/29/21 1407] BP Pulse Temp Temp src Resp SpO2 Weight Height 98/57 59 36.9 ?C (98.5 ?F) Temporal 16 100 % 48.1 kg (106 lb) 1.524 m (5') Physical Exam Vitals and nursing note reviewed. Constitutional: General: He is not in acute distress. Appearance: Normal appearance. He is well-developed. He is not ill-appearing or diaphoretic. Comments: Frail elderly male - afebrile and hemodynamically stable -alert and aware, oriented x4. Hard of hearing. HENT: Head: Normocephalic and atraumatic. Right Ear: External ear normal. Left Ear: External ear normal. Nose: Nose normal. Mouth/Throat: Mouth: Mucous membranes are moist. Pharynx: Oropharynx is clear. No oropharyngeal exudate. Eyes: General: Right eye: No discharge. Left eye: No discharge. Conjunctiva/sclera: Conjunctivae normal. Pupils: Pupils are equal, round, and reactive to light. Cardiovascular: Rate and Rhythm: Normal rate and regular rhythm. Pulses: Radial pulses are 2+ on the right side and 2+ on the left side. Dorsalis pedis pulses are 2+ on the right side and 2+ on the left side. Heart sounds: Normal heart sounds. No murmur heard. Pulmonary: Effort: Pulmonary effort is normal. No respiratory distress. Breath sounds: Normal breath sounds. No wheezing or rales. Chest: Chest wall: No tenderness. Abdominal: General: Bowel sounds are normal. There is no distension. Palpations: Abdomen is soft. Tenderness: There is no abdominal tenderness. There is no guarding or rebound. Musculoskeletal: General: No swelling, tenderness, deformity or signs of injury. Normal range of motion. Cervical back: Normal range of motion and neck campbell (more content not included)... Normal [facility] 09-17-2021 CNPN Telephone (FAMDNA) DANE MARTINEZ ([id number]) 1940 [facility] Date Time Provider Department 09[facility]17/21 [facility] During your visit today, we recorded the following information about you: Balbina Reid MA 09/17/2021 2:43 PM Signed Good afternoon, In order for patient to keep receiving refills they need to establish care with a provider here or in [place]. We have not see this patient Please call to make a physical/establish care Thank you Balbina Reid MA Allergies As of Date: 09/17/2021 (No Known Allergies) Date Reviewed: 09/16/2021 Reviewed by: Cuca Garay RN - Fully Assessed Reason for Visit: Establish Care [42] Cmt: Needs appointment Prescriptions as of 05/24/2022 - ferrous sulfate 325 mg (65 mg iron) tablet Take 1 tablet by mouth every other day. - sodium hypochlorite, Dakin's Half-Strength, (DAKIN'S HALF-STRENGTH) external solution Apply 240 mL to affected area twice daily. - aspirin, enteric coated (ADULT LOW DOSE ASPIRIN) 81 mg EC tablet Take 1 tablet by mouth once daily. - lidocaine (SALONPAS) 4 % patch Apply 2 Patches as directed once daily. - tamsulosin (FLOMAX) 0.4 mg TAKE 2 CAPSULES BY MOUTH EVERY DAY - acetaminophen (TYLENOL) 325 mg tablet Take 2 tablets by mouth every 6 hours as needed for pain. - polyethylene glycol 3350 (MIRALAX, GLYCOLAX) 17 gram packet Take 1 Packet by mouth once daily. Dissolve dose in 4 - 8 ounces of liquid and take as directed. - melatonin 1 mg tablet Take 1 tablet by mouth daily at bedtime. 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 Patient moves himself into wheelchair without difficulty. Patient is AANDO, denies c/o or needs at this time. Called patient's friend Virgil for ride home [phone]. Patient asks to wait in lobby for his ride. Dc instr to fu w pmd, return prn. Verb und. Normal [facility] ED NOTEon 09-16-2021 ED NOTE HNO ID: [id number] Author: Cuca Garay RN Service: Emergency Medicine Author Type: Registered Nurse Type: ED Notes Filed: 09/16/2021 7:34 PM Note Text: Pts friend Virgil at bedside. Normal [facility] ED NOTE HNO ID: [id number] Author: Cuca Garay RN Service: Emergency Medicine Author Type: Registered Nurse Type: ED Notes Filed: 09/16/2021 7:17 PM Note Text: Neighbor contacted this ED to express concern for patients safety at home alone. Spoke with patient, patient immediately states I don't need to go to no longterm, I want to get checked out and go home. Dr. Norris advised. [facility] ED NOTE HNO ID: [id number] Author: Cuca Garay RN Service: Emergency Medicine Author Type: Registered Nurse Type: ED Notes Filed: 09/16/2021 7:08 PM Note Text: Pt tripped and fell while using cane at home. Pt denies dizziness or unsteady gait, pt states I just tripped over my cane. Pt reports falling backwards and hitting top right of head on unknown object. Pt denies LOC. Pt reports that when he fell he began to hollar and neighbor called EMS. Pt reports being on floor for about 1 hour; pt reports he was unable to get up on his own. Pt denies pain or DO; reports taking 325 asa daily. Normal [facility] ED PROV NOTEon 09-16-2021 ED PROV NOTE HNO ID: [id number] Author: vAa Norris MD Service: Emergency Medicine Author Type: Physician Type: ED Provider Notes Filed: 09/16/2021 10:32 PM Note Text: ED Provider Note Patient Name: Dane Martinez : 1940 SERVICE DATE: 09/16/21 History Patient presents with: Fall Dane Martinez is a 80 year old male with history of multiple chronic medical problems who presents with Fall. Patient took nothing for this prior to arrival. - Symptoms began this afternoon. - Severity: mild - Timin episode - Quality: Loss his balance and fell backwards. - Fall is exacerbated by nothing. - Fall is not exacerbated by movement. - Symptoms are associated with abrasion to top of scalp and bump on back of head. - Symptoms are not associated with syncope or any other injuries. - Improved by nothing. - Not improved by rest Patient states he was walking using his cane lost his balance fell backwards. This happens quite frequently.. He called his neighbor and neighbor called EMS. He is presented like this in the past and is definitely challenged in his ability to care for himself at home but he is very adamant that he does not want to be in a snf facility and he is his own decision maker. He says he did not get knocked out tonight he is without any other complaints and he wants to get checked out and if he does not have any internal injuries he wants to go home. PAST MEDICAL HISTORY Diagnosis Date - Anemia - HTN (hypertension) 08/12/2014 - Left inguinal hernia 04/02/2016 - Recurrent right inguinal hernia 04/02/2016 PAST SURGICAL HISTORY Procedure Laterality Date - EXC PILONID CYST SMPL 60 - HERNIA REPAIR W/MESH 04/09/16 lap bilateral - PAST SURGICAL HISTORY OF 2013 right inguinal hernia FAMILY HISTORY Problem Relation Age of Onset - Coronary Artery Disease Sister 64 - Diabetes Brother - Hypertension Sister - Hypertension Sister - Heart Father Social History Tobacco Use - Smoking status: Never Smoker - Smokeless tobacco: Never Used Vaping Use - Vaping Use: Never used Substance and Sexual Activity - Alcohol use: No - Drug use: No - Sexual activity: Not on file ALLERGIES No Known Allergies Review of Systems Constitutional: Negative for chills and fever. Respiratory: Negative for cough and shortness of breath. Cardiovascular: Negative for chest pain and palpitations. Gastrointestinal: Negative for abdominal pain, nausea and vomiting. Musculoskeletal: Negative for back pain, myalgias and neck pain. Skin: Negative for color change, pallor, rash and wound. Allergic/Immunologic: Negative for environmental allergies, food allergies and immunocompromised state. Neurological: Negative for dizziness, syncope and light-headedness. Psychiatric/Behavioral: Negative for confusion. The patient is not nervous/anxious. Physical Exam Vitals [09/16/21 1902] BP Pulse Temp Temp src Resp SpO2 Weight Height 135/77 64 36.4 ?C (97.6 ?F) Temporal 12 99 % 48.1 kg (106 lb) 1.524 m (5') Physical Exam Vitals and nursing note reviewed. Constitutional: General: He is not in acute distress. Appearance: Normal appearance. He is not ill-appearing, toxic-appearing or diaphoretic. HENT: Head: Normocephalic. Comments: Small hematoma on occipital scalp and a small abrasion on the top of the head Eyes: General: Right eye: No discharge. Left eye: No discharge. Extraocular Movements: Extraocular movements intact. Pupils: Pupils are equal, round, and reactive to light. Neck: Comments: Kept in collar initially. Cardiovascular: Rate and Rhythm: Normal rate and regular rhythm. Pulmonary: Effort: Pulmonary effort is normal. No respiratory distress. Abdominal: Palpations: Abdomen is soft. Tenderness: There is no abdominal tenderness. Musculoskeletal: General: No swelling or tenderness. Normal range of motion. Comments: No long bone or joint tenderness good movement in the hips no tenderness along the pelvis. Skin: General: Skin is warm and dry. Capillary Refill: Capillary refill takes less than 2 seconds. Findings: No rash. Neurological: General: No focal deficit present. Mental Status: He is alert and oriented to person, place, and time. Psychiatric: Mood and Affect: Mood normal. Behavior: Behavior normal. Thought Content: Thought content normal. Judgment: Judgment normal. Diagnostic Testing ED Labs Ordered and Reviewed - No data to display Procedures ED Course / Clinical Impression Clinical Impressions as of 09/16/212230 Fall, initial encounter MDM / Disposition / Plan Isolated head injury he has no other complaints this time no neurodeficits extremities are symmetric in strength no sensory changes elderly so at more risk for injury CT of head and C-spine obtained again talked to patient about safety issues at home but he is adamant that he does not want to be admitted. CTA neck (more content not included)... Normal [facility] ED NOTEon 08-23-2021 ED NOTE HNO ID: [id number] Author: Melissa Veras RN Service: Emergency Medicine Author Type: Registered Nurse Type: ED Notes Filed: 08/23/2021 2:13 AM Note Text: Encouraged patient to drink PO fluids, eat regularly, return to ER for any concerns or if he changes his mind and wants to stay in the hospital for rehab. Reminded him to call PCP for follow-up appointment and to pursue HHC. Normal [facility] ED NOTE HNO ID: [id number] Author: Melissa Veras RN Service: Emergency Medicine Author Type: Registered Nurse Type: ED Notes Filed: 08/23/2021 2:11 AM Note Text: telfa and paper tape dressing applied to open wound on patient's coccyx. No active bleeding at this time. Attempt to assist patient to dress, however, patient insists on independence with dressing. IV dc'd. Dc instr to call PCP as soon as possible to determine what happened to home health palliative care nurse practitioner that was supposed to come to his house. Patient states maybe they forgot. encouraged patient (and friend Virgil) to pursue HHC if patient wants to continue to live alone as he insists. Verb und, patient agreeable to plan [facility] ED NOTE HNO ID: [id number] Author: Melissa Veras RN Service: Emergency Medicine Author Type: Registered Nurse Type: ED Notes Filed: 08/23/2021 2:07 AM Note Text: Patient states that he does not need to urinate at this time, states I don't want to wait. I'm ready to go home. Dr Norris advised. [facility] ED NOTE HNO ID: [id number] Author: Melissa Veras RN Service: Emergency Medicine Author Type: Registered Nurse Type: ED Notes Filed: 08/23/2021 12:56 AM Note Text: Patient reports that he had a cyst removed on [place] tailbone [place] [address] [place] told him that it shouldn't be closed, that it had to heal from the inside out. Patient states that since then, the incision/wound is sometimes closed but opens back up frequently and it never hurts him. States tonight he was concerned because the wound would not stop bleeding. Reports minimal to no pain. States I don't want to stay in the hospital, I just wanted to make sure the sore stopped bleeding. Normal [facility] ED NOTE HNO ID: [id number] Author: Melissa Veras RN Service: Emergency Medicine Author Type: Registered Nurse Type: ED Notes Filed: 08/23/2021 12:34 AM Note Text: Patient states I got up from using the commode and I sat back down really hard and broke open that sore that I have on my back. I want to get it checked to see if it stopped bleeding.: Normal [facility] ED PROV NOTEon 08-23-2021 ED PROV NOTE HNO ID: [id number] Author: Ava Norris MD Service: Emergency Medicine Author Type: Physician Type: ED Provider Notes Filed: 08/23/2021 1:52 AM Note Text: ED Provider Note Patient Name: Dane Martinez : 1940 SERVICE DATE: 08/23/21 History Patient presents with: Wound Check Dane Martinez is a 80 year old male with history of remote excision of pilonidal cyst who presents with Wound Check. Patient took nothing for this prior to arrival. - Symptoms began this evening. - Severity: mild - Timing: constant - Quality: Patient got up from the commode lost his balance and sat back down hard and sore spot on his coccyx started bleeding - Wound Check is exacerbated by movement. - Wound Check is not exacerbated by palpation. - Symptoms are associated with nothing. - Symptoms are not associated with any other injury. - Improved by nothing. - Not improved by rest Patient lives alone neighbor brought him in to the emergency department to be evaluated tonight he said all he wants is to have this wound looked at to make sure it is not bleeding anymore. He said this has been open for a while he was supposed to have visiting nurse come out to apply dressings and show neighbor who is his caregiver how to do the same. He says they have not come to his [place] yet. He denies any other symptoms states he has been not eating and drinking and that he is able to take care of himself. Ambulates with a cane.. PAST MEDICAL HISTORY Diagnosis Date - Anemia - HTN (hypertension) 08/12/2014 - Left inguinal hernia 04/02/2016 - Recurrent right inguinal hernia 04/02/2016 PAST SURGICAL HISTORY Procedure Laterality Date - EXC PILONID CYST SMPL 60 - HERNIA REPAIR W/MESH 04/09/16 lap bilateral - PAST SURGICAL HISTORY OF 2013 right inguinal hernia FAMILY HISTORY Problem Relation Age of Onset - Coronary Artery Disease Sister 64 - Diabetes Brother - Hypertension Sister - Hypertension Sister - Heart Father Social History Tobacco Use - Smoking status: Never Smoker - Smokeless tobacco: Never Used Vaping Use - Vaping Use: Never used Substance and Sexual Activity - Alcohol use: No - Drug use: No - Sexual activity: Not on file ALLERGIES No Known Allergies Review of Systems Constitutional: Negative for chills and fever. HENT: Negative for congestion and trouble swallowing. Respiratory: Negative for cough and shortness of breath. Gastrointestinal: Negative for abdominal pain, nausea and vomiting. Genitourinary: Negative for dysuria and frequency. Musculoskeletal: Negative for back pain, myalgias and neck pain. Skin: Positive for wound. Negative for color change, pallor and rash. Allergic/Immunologic: Negative for environmental allergies, food allergies and immunocompromised state. Neurological: Negative for syncope and light-headedness. Psychiatric/Behavioral: Negative for confusion. The patient is not nervous/anxious. Physical Exam Vitals [08/23/21 0031] BP Pulse Temp Temp src Resp SpO2 Weight Height 100/61 60 36.3 ?C (97.4 ?F) Temporal 22 98 % 48.1 kg (106 lb) -- Physical Exam Constitutional: General: He is not in acute distress. Appearance: He is not ill-appearing, toxic-appearing or diaphoretic. Comments: Frail body habitus HENT: Right Ear: External ear normal. Left Ear: External ear normal. Eyes: General: No scleral icterus. Right eye: No discharge. Left eye: No discharge. Extraocular Movements: Extraocular movements intact. Cardiovascular: Rate and Rhythm: Normal rate and regular rhythm. Pulmonary: Effort: Pulmonary effort is normal. No respiratory distress. Genitourinary: Comments: 3cm open wound on coccyx without any acute bleeding or signs of infection Musculoskeletal: General: No swelling or tenderness. Normal range of motion. Cervical back: No tenderness. Skin: General: Skin is warm and dry. Capillary Refill: Capillary refill takes less than 2 seconds. Findings: No rash. Neurological: General: No focal deficit present. Mental Status: He is alert and oriented to person, place, and time. Psychiatric: Mood and Affect: Mood normal. Behavior: Behavior normal. Thought Content: Thought content normal. Judgment: Judgment normal. Diagnostic Testing ED Labs Ordered and Reviewed - No data to display Procedures ED Course / Clinical Impression Clinical Impressions as of 08/23/21 0152 Visit for wound check Hyponatremia Generalized weakness MDM / Disposition / Plan Patient is with poor hygiene thin body habitus blood pressure is lower than what he had when he was here his last visit. The wound on the coccyx is consistent with a split in the skin where he had his old surgical incision for the pilonidal cyst. Its not bleeding and its not acutely infected. His perineal hygiene is poor. This is at risk for getting infected. Patient was not good on history but it has in fact been note (more content not included)... Normal [facility] ED NOTEon 07-04-2021 ED NOTE HNO ID: [id number] Author: Melissa Veras RN Service: Emergency Medicine Author Type: Registered Nurse Type: ED Notes Filed: 07/04/2021 12:53 AM Note Text: Patient's ride at bedside. Dc instr to fu w pmd, return if needed. Patient continues to deny pain or any c/o. Patient independent with dressing and refused wheelchair to car. Ambulates with slow, measured gait, using cane sporatically. RN provided stand-by assistance to car for patient safety. Normal [facility] ED NOTE HNO ID: [id number] Author: Melissa Veras RN Service: Emergency Medicine Author Type: Registered Nurse Type: ED Notes Filed: 07/03/2021 11:48 PM Note Text: Per EMS report: patient's neighbors called 911 because they heard patient calling out. Patient told EMS that he fell forward while leaning over to check out a can of food that was on the floor. Patient states he was on the floor for 3 hours. Patient states he hit the back of his head. Denies loss of consciousness. Patient denies any injury or complaints. States, I just want to get checked out and make sure I'm okay. Normal [facility] ED PROV NOTEon 07-04-2021 ED PROV NOTE HNO ID: [id number] Author: Woo Horner MD Service: Emergency Medicine Author Type: Physician Type: ED Provider Notes Filed: 07/04/2021 12:36 AM Note Text: ED Provider Note Patient Name: Dane Martinez SERVICE DATE: 07/03/21 History Patient presents with: Fall Presents the emergency department via EMS transfer, for concerns over fall. Patient is elderly, lives alone, states he was going to scrap picker some canned goods on the floor, as he is not having of self space, he fell to the side landing on the floor when he was bending over, and was unable to open the floor without assistance. Patient called to his neighbor who assisted him, and called an ambulance. On my initial evaluation, patient denies any complaints. Patient states he did not lose consciousness, he has no back pain, neck pain. Patient declines pain medications. Fall Severity: Mild Onset quality: Sudden Duration: 3 hours Timing: Constant Chronicity: Recurrent Associated symptoms: no abdominal pain, no chest pain, no headaches and no loss of consciousness PAST MEDICAL HISTORY Diagnosis Date - Anemia - HTN (hypertension) 08/12/2014 - Left inguinal hernia 04/02/2016 - Recurrent right inguinal hernia 04/02/2016 PAST SURGICAL HISTORY Procedure Laterality Date - EXC PILONID CYST SMPL 60 - HERNIA REPAIR W/MESH 04/09/16 lap bilateral - PAST SURGICAL HISTORY OF 2013 right inguinal hernia FAMILY HISTORY Problem Relation Age of Onset - Coronary Artery Disease Sister 64 - Diabetes Brother - Hypertension Sister - Hypertension Sister - Heart Father Social History Tobacco Use - Smoking status: Never Smoker - Smokeless tobacco: Never Used Vaping Use - Vaping Use: Never used Substance and Sexual Activity - Alcohol use: No - Drug use: No - Sexual activity: Not on file ALLERGIES No Known Allergies Review of Systems Cardiovascular: Negative for chest pain. Gastrointestinal: Negative for abdominal pain. Neurological: Negative for loss of consciousness and headaches. Physical Exam Vitals BP Pulse Temp Temp src Resp SpO2 Weight Height 07/04/21 0000 07/04/21 0014 07/04/21 0014 07/04/21 0014 07/04/21 0014 07/04/21 0000 07/03/21 2342 -- 130/81 60 36.9 ?C (98.5 ?F) Temporal 18 100 % 48.1 kg (106 lb) Physical Exam Vitals and nursing note reviewed. Constitutional: General: He is not in acute distress. Comments: Elderly male, in no acute distress, appears comfortable HENT: Head: Normocephalic. Comments: Patient has a couple of small scabbed over pinpoint scalp abrasions on the occiput, there is a mild erythematous patch just posterior, without warmth, break in the skin, depressed skull fracture, or associated tender Nose: Comments: Is no epistasis, Eyes: General: Right eye: No discharge. Left eye: No discharge. Extraocular Movements: Extraocular movements intact. Cardiovascular: Rate and Rhythm: Normal rate and regular rhythm. Heart sounds: Murmur heard. Pulmonary: Effort: Pulmonary effort is normal. Breath sounds: Normal breath sounds. Abdominal: Tenderness: There is no abdominal tenderness. Musculoskeletal: General: No swelling, tenderness, deformity or signs of injury. Cervical back: Normal range of motion and neck supple. No rigidity or tenderness. Right lower leg: No edema. Left lower leg: No edema. Skin: General: Skin is warm and dry. Neurological: General: No focal deficit present. Mental Status: He is alert. Motor: No weakness. Comments: Patient is alert and orientated x3, he is able to give recent remote history, he is able to describe the events of the fall to me with good detail, he has no amnesia to his fall. Patient has symmetric face, with intact extraocular movements, he has equal handgrip strength, no drift, equal lower extremity muscle strength, he can lift both of his legs against gravity, resistance, he is relatively strong to all his extremities Diagnostic Testing ED Labs Ordered and Reviewed - No data to display Procedures ED Course / Clinical Impression Clinical Impressions as of 07/04/21 0025 Fall, initial encounter MDM / Disposition / Plan This is an 80-year-old male patient, who lives alone, presents the emergency family after reported mechanical fall at home, with inability to get back up following. Patient has canned goods in the floor at home as he does not have enough cell space, he notes he was reaching over to get these off the floor, and he fell. Patient denies any associated injuries, he has no complaints of pain, he has no areas of bony tenderness. Patient states he is fine to come in to get checked out. Patient is neurologically intact, with normal neurologic examination. Patient is declining pain medications. I do not appreciate any areas of acute trauma to patient. Patient lives alone, and he prefers to go home. Chart review notes that patient has however had mu (more content not included)... Normal [facility] ED NOTEon 05-30-2021 ED NOTE HNO ID: [id number] Author: Kalie Giraldo RN Service: Emergency Medicine Author Type: Registered Nurse Type: ED Notes Filed: 05/30/2021 6:13 PM Note Text: Patient is alert and oriented, denies any questions/concerns at this time. Patient verbalizes understanding of d/c instructions and follow up care. Patient ambulates from department at this time. Normal [facility] ED NOTE HNO ID: [id number] Author: Kalie Giraldo RN Service: Emergency Medicine Author Type: Registered Nurse Type: ED Notes Filed: 05/30/2021 4:36 PM Note Text: Patient reports he bent down to pick something up outside and the wind blew him over. Patient states he hit his head but denies LOC. Patient is alert and oriented ambulates to room 9 Normal [facility] ED PROV NOTEon 05-30-2021 ED PROV NOTE HNO ID: [id number] Author: Veronica Mckeon DO Service: Emergency Medicine Author Type: Physician Type: ED Provider Notes Filed: 05/30/2021 6:03 PM Note Text: ED Provider Note Patient Name: Dane Martinez SERVICE DATE: 05/30/21 History Patient presents with: Fall Dane Martinez is a 80 year old male who presents with Fall. - Symptoms began this afternoon. - Severity: mild - Timing: once - Quality: no pain - Fall is exacerbated by wind blowing him over. - Fall is not exacerbated by rest. - Symptoms are associated with facial laceration, head injury. - Symptoms are not associated with headache, LOC, nausea, vomiting, vision changes, neck pain, back pain, chest pain, shortness of breath, abdominal pain, numbness, weakness. Patient states that he was bent over and the wind blew and he fell to the ground due to the high wind. He states he hit his head, but did not pass out. Denies any headache, face pain, nausea, vomiting, neck pain, back pain, chest pain, shortness of breath, abdominal pain, numbness, weakness. Patient states that his Tdap is up-to-date. He is on aspirin, no other blood thinners. PAST MEDICAL HISTORY Diagnosis Date - Anemia - HTN (hypertension) 08/12/2014 - Left inguinal hernia 04/02/2016 - Recurrent right inguinal hernia 04/02/2016 PAST SURGICAL HISTORY Procedure Laterality Date - EXC PILONID CYST SMPL 60 - HERNIA REPAIR W/MESH 04/09/16 lap bilateral - PAST SURGICAL HISTORY OF 2013 right inguinal hernia FAMILY HISTORY Problem Relation Age of Onset - Coronary Artery Disease Sister 64 - Diabetes Brother - Hypertension Sister - Hypertension Sister - Heart Father Social History Tobacco Use - Smoking status: Never Smoker - Smokeless tobacco: Never Used Vaping Use - Vaping Use: Never used Substance and Sexual Activity - Alcohol use: No - Drug use: No - Sexual activity: Not on file ALLERGIES No Known Allergies Review of Systems Constitutional: Negative for chills and fever. HENT: Positive for facial swelling (Lateral to right eye). Negative for trouble swallowing. Eyes: Negative for pain, redness and visual disturbance. Respiratory: Negative for shortness of breath. Cardiovascular: Negative for chest pain. Gastrointestinal: Negative for abdominal pain, nausea and vomiting. Genitourinary: Negative for flank pain. Musculoskeletal: Negative for back pain and neck pain. Skin: Positive for wound (Face). Neurological: Negative for dizziness, syncope, facial asymmetry, weakness, numbness and headaches. Psychiatric/Behavioral: Negative for agitation and confusion. Physical Exam Vitals [05/30/21 1636] BP Pulse Temp Temp src Resp SpO2 Weight Height 142/79 58 37.1 ?C (98.8 ?F) Temporal 18 98 % 48.1 kg (106 lb) 1.524 m (5') Physical Exam Vitals and nursing note reviewed. Constitutional: General: He is not in acute distress. Appearance: He is not ill-appearing, toxic-appearing or diaphoretic. HENT: Head: Normocephalic. Laceration (1 cm laceration lateral to right eye with small localized contusion and swelling) present. No raccoon eyes, Diallo's sign, right periorbital erythema or left periorbital erythema. Jaw: No trismus. Comments: No facial tenderness. Right Ear: There is impacted cerumen. Left Ear: There is impacted cerumen. Nose: Nose normal. Mouth/Throat: Mouth: Mucous membranes are moist. Pharynx: Oropharynx is clear. Tonsils: No tonsillar exudate or tonsillar abscesses. Eyes: General: No scleral icterus. Extraocular Movements: Extraocular movements intact. Conjunctiva/sclera: Conjunctivae normal. Right eye: Right conjunctiva is not injected. Left eye: Left conjunctiva is not injected. Pupils: Pupils are equal, round, and reactive to light. Cardiovascular: Rate and Rhythm: Normal rate and regular rhythm. Pulses: Normal pulses. Pulmonary: Effort: Pulmonary effort is normal. No respiratory distress. Breath sounds: Normal breath sounds. Abdominal: General: Abdomen is flat. Bowel sounds are normal. There is no distension. Palpations: Abdomen is soft. Tenderness: There is no abdominal tenderness. There is no guarding or rebound. Musculoskeletal: Cervical back: Normal range of motion and neck supple. No swelling, edema, deformity, erythema, signs of trauma, lacerations, rigidity, tenderness or bony tenderness. Normal range of motion. Thoracic back: No swelling, edema, deformity, signs of trauma, lacerations, tenderness or bony tenderness. Normal range of motion. Lumbar back: No swelling, edema, deformity, signs of trauma, lacerations, tenderness or bony tenderness. Normal range of motion. Skin: General: Skin is warm and dry. Capillary Refill: Capillary refill takes less than 2 seconds. Neurological: General: No focal deficit present. Mental Status: He is alert and oriented to person, place, and time. GCS: GCS eye subscore is 4. GCS verbal subsc (more content not included)... Normal [facility] CT LUMBAR SPINE WO IVCONon 1 CT LUMBAR SPINE WO IVCON * * *Final Report* * * DATE OF EXAM: Feb 27 2019 10:17PM [facility] 0508 - CT LUMBAR SPINE WO IVCON / PROCEDURE REASON: Back pain, minor trauma * * * * Physician Interpretation * * * * EXAMINATION: CT LUMBAR SPINE WO IVCON, CT THORACIC SPINE WO IVCON CLINICAL HISTORY: Back pain, minor trauma (accession [id number]), T-spine fx, traumatic (accession [id number]) TECHNIQUE: Spiral, high resolution axial images were obtained from the cervicothoracic to the lumbosacral junctions with sagittal and coronal planar reconstructions. Relative slight delay reports transmission secondary to technical mix-up. Dose-Length Product (DLP): tsp- 627.53 lsp-640.72 mGy*cm. CT Dose Reduction Employed: No dose reduction techniques were required COMPARISON: None available. RESULT: THORACIC: Counting reference: Lumbosacral junction. For the purposes of this report, L4-5 is considered the level of the iliac crest and there are 5 lumbar-type vertebrae, and 12 rib-bearing thoracic-type vertebrae. Anatomic Variants: Rudimentary RIGHT L1 rib. Alignment: Mild thoracic curvature/2. Straightening of the normal thoracic kyphosis. No significant spondylolistheses. Bone marrow /fracture: No evidence of an acute fracture. No evidence of a lytic or blastic process in the visualized spine. Thoracic soft tissues: The paraspinal soft tissue planes are preserved. Degenerative changes: Degenerative changes are present. Occasional Schmorl nodes. Multilevel facet arthropathy, up to moderate-severe at T4-T5, T10-T11 with partial fusion at T5-T6, and mostly mild or moderate elsewhere. Occasional mild disc-osteophyte complexes, such as at T3-T4. Mild neural foraminal stenoses at T4-T5, and probably at a couple of other levels. Partially imaged lower cervical spine degenerative changes, with up to moderate-severe C6-C7, and C7-T1 disc height losses. LUMBAR: Counting reference: Lumbosacral junction. For the purposes of this report, L4-5 is considered the level of the iliac crest and there are 5 lumbar-type vertebrae. Variants: Rudimentary RIGHT L1 rib. Alignment: At least moderate lumbar dextroscoliosis. Straightening of the normal lumbar lordosis. Grade I spondylolisthesis(retro listhesis of L2 on L3), in the setting of degenerative changes/facet arthropathy, as well as multilevel transverse subluxations. Bone marrow /fracture: No evidence of an acute fracture. No evidence of a lytic or blastic process in the visualized spine. Paraspinal soft tissues: The paraspinal soft tissues planes are maintained. Degenerative changes: Degenerative changes are present. Endplate sclerosis/cystic changes/irregularity, disc vacuum phenomenon from L2-L3 through L5-S1, as well as ligamentum flavum thickening. T12-L1: Mild facet arthropathy. No grossly significant stenoses. L1-L2: Mild disc-osteophyte complex and facet arthropathy, without grossly visible significant stenoses. L2-L3: Moderate-severe disc height loss and disc-osteophyte complex. Estimated moderate LEFT, and mild RIGHT neural foraminal stenoses, and mild lateral recess stenoses. L3-L4: Severe disc height loss and disc-osteophyte complex. Moderate bilateral facet arthropathy. Estimated moderate-severe LEFT, and moderate RIGHT neural foraminal stenoses, and moderate lateral recess stenoses, as well as mild spinal canal stenosis. L4-L5: Moderate-severe disc osteophyte complex. Moderate-severe RIGHT, and moderate LEFT facet arthropathy. Moderate-severe RIGHT (with compression of the exiting L4 nerve root, and moderate LEFT neural foraminal stenoses. Moderate LEFT, and mild-moderate RIGHT lateral recess stenoses. Mild spinal canal stenosis. L5-S1: Moderate disc height loss and disc-osteophyte complex. Moderate facet arthropathy. Moderate bilateral neural foraminal stenoses, and mild-moderate lateral recess stenosis. Sacrum and iliac wings: The visualized sacrum and iliac wings show no acute findings. Mild-moderate bilateral sacroiliac arthritic changes. Other: Partially imaged hip arthritic changes. Partially imaged/incompletely assessed LEFT renal cortical cystic focus of at least 6.1 cm in diameter, with thin peripheral calcifications noted, and smaller exophytic foci on the RIGHT (a couple of which are high density. Bilateral adrenal nodularity may be present. Quite distended urinary bladder, nonspecific, with possible mild circumferential wall thickening, and the setting of an enlarged prostate gland. Coronary artery calcifications. Calcified hilar lymph nodes. Bronchial wall thickening/small airways disease. Mild bibasal haziness, possibly atelectasis, motion limited in assessment. IMPRESSION: NO CT EVIDENCE OF ACUTE FRACTURE OR TRAUMATIC SPONDYLOLISTHESIS IN THE THORACIC OR LUMBOSACRAL SPINE. Generalized osteopenia. Degenerative spine changes with stenoses as above. Other: details above. Anatomic Thoracic/Lumbar Variant: None of significance. L4-5 is considered the level of the iliac crest and assume there are 5 lumbar-type vertebrae. Worm Picker: AMANDA Transcribe Date/Time: Feb 27 2019 11:05P Dictated by : KATRIN ROSAS MD This examination was interpreted and the report reviewed and electronically signed by: KATRIN ROSAS MD on Feb 27 2019 11:30PM EST Normal [facility] CT THORACIC SPINE WO IVCONon 02-28-2019 CT THORACIC SPINE WO IVCON * * *Final Report* * * DATE OF EXAM: Feb 27 2019 10:17PM [facility] 0514 - CT THORACIC SPINE WO IVCON / PROCEDURE REASON: T-spine fx, traumatic * * * * Physician Interpretation * * * * EXAMINATION: CT LUMBAR SPINE WO IVCON, CT THORACIC SPINE WO IVCON CLINICAL HISTORY: Back pain, minor trauma (accession [id number]), T-spine fx, traumatic (accession [id number]) TECHNIQUE: Spiral, high resolution axial images were obtained from the cervicothoracic to the lumbosacral junctions with sagittal and coronal planar reconstructions. Relative slight delay reports transmission secondary to technical mix-up. Dose-Length Product (DLP): tsp- 627.53 lsp-640.72 mGy*cm. CT Dose Reduction Employed: No dose reduction techniques were required COMPARISON: None available. RESULT: THORACIC: Counting reference: Lumbosacral junction. For the purposes of this report, L4-5 is considered the level of the iliac crest and there are 5 lumbar-type vertebrae, and 12 rib-bearing thoracic-type vertebrae. Anatomic Variants: Rudimentary RIGHT L1 rib. Alignment: Mild thoracic curvature/2. Straightening of the normal thoracic kyphosis. No significant spondylolistheses. Bone marrow /fracture: No evidence of an acute fracture. No evidence of a lytic or blastic process in the visualized spine. Thoracic soft tissues: The paraspinal soft tissue planes are preserved. Degenerative changes: Degenerative changes are present. Occasional Schmorl nodes. Multilevel facet arthropathy, up to moderate-severe at T4-T5, T10-T11 with partial fusion at T5-T6, and mostly mild or moderate elsewhere. Occasional mild disc-osteophyte complexes, such as at T3-T4. Mild neural foraminal stenoses at T4-T5, and probably at a couple of other levels. Partially imaged lower cervical spine degenerative changes, with up to moderate-severe C6-C7, and C7-T1 disc height losses. LUMBAR: Counting reference: Lumbosacral junction. For the purposes of this report, L4-5 is considered the level of the iliac crest and there are 5 lumbar-type vertebrae. Variants: Rudimentary RIGHT L1 rib. Alignment: At least moderate lumbar dextroscoliosis. Straightening of the normal lumbar lordosis. Grade I spondylolisthesis(retro listhesis of L2 on L3), in the setting of degenerative changes/facet arthropathy, as well as multilevel transverse subluxations. Bone marrow /fracture: No evidence of an acute fracture. No evidence of a lytic or blastic process in the visualized spine. Paraspinal soft tissues: The paraspinal soft tissues planes are maintained. Degenerative changes: Degenerative changes are present. Endplate sclerosis/cystic changes/irregularity, disc vacuum phenomenon from L2-L3 through L5-S1, as well as ligamentum flavum thickening. T12-L1: Mild facet arthropathy. No grossly significant stenoses. L1-L2: Mild disc-osteophyte complex and facet arthropathy, without grossly visible significant stenoses. L2-L3: Moderate-severe disc height loss and disc-osteophyte complex. Estimated moderate LEFT, and mild RIGHT neural foraminal stenoses, and mild lateral recess stenoses. L3-L4: Severe disc height loss and disc-osteophyte complex. Moderate bilateral facet arthropathy. Estimated moderate-severe LEFT, and moderate RIGHT neural foraminal stenoses, and moderate lateral recess stenoses, as well as mild spinal canal stenosis. L4-L5: Moderate-severe disc osteophyte complex. Moderate-severe RIGHT, and moderate LEFT facet arthropathy. Moderate-severe RIGHT (with compression of the exiting L4 nerve root, and moderate LEFT neural foraminal stenoses. Moderate LEFT, and mild-moderate RIGHT lateral recess stenoses. Mild spinal canal stenosis. L5-S1: Moderate disc height loss and disc-osteophyte complex. Moderate facet arthropathy. Moderate bilateral neural foraminal stenoses, and mild-moderate lateral recess stenosis. Sacrum and iliac wings: The visualized sacrum and iliac wings show no acute findings. Mild-moderate bilateral sacroiliac arthritic changes. Other: Partially imaged hip arthritic changes. Partially imaged/incompletely assessed LEFT renal cortical cystic focus of at least 6.1 cm in diameter, with thin peripheral calcifications noted, and smaller exophytic foci on the RIGHT (a couple of which are high density. Bilateral adrenal nodularity may be present. Quite distended urinary bladder, nonspecific, with possible mild circumferential wall thickening, and the setting of an enlarged prostate gland. Coronary artery calcifications. Calcified hilar lymph nodes. Bronchial wall thickening/small airways disease. Mild bibasal haziness, possibly atelectasis, motion limited in assessment. IMPRESSION: NO CT EVIDENCE OF ACUTE FRACTURE OR TRAUMATIC SPONDYLOLISTHESIS IN THE THORACIC OR LUMBOSACRAL SPINE. Generalized osteopenia. Degenerative spine changes with stenoses as above. Other: details above. Anatomic Thoracic/Lumbar Variant: None of significance. L4-5 is considered the level of the iliac crest and assume there are 5 lumbar-type vertebrae. Worm Picker: AMANDA Transcribe Date/Time: Feb 27 2019 11:05P Dictated by : KATRIN ROSAS MD This examination was interpreted and the report reviewed and electronically signed by: KATRIN ROSAS MD on Feb 27 2019 11:30PM EST Normal [facility] Encounters Encounter Date Encounter Type Care Provider Facility Start: 05-08-2022 End: 05-08-2022 Emergency department patient visit [facility] Facility:[facility] Start: 04-18-2022 End: 04-23-2022 Evaluation and management of inpatient AVA NORRIS Facility:[facility] Start: 02-27-2022 Refill Torres Greer Work Phone: [facility] Comment on above: Refill Request Start: 12-22-2021 Refill Qamar richmond MD Work Phone: [facility] Comment on above: Refill Request Start: 09-15-2021 Refill Torres Greer Work Phone: [facility] Comment on above: Refill Request Procedures Date Procedure Procedure Detail Performing Clinician Start: 07-06-2018 Adult depression screening assessment Torres Erwin MD Work Phone: Plan of Treatment Date Care Activity Detail Author Start: 11-03-2028 Urine microalbumin profile DTA P,TDAP,TD (2 - Td or Tdap) [facility] Start: 08-23-2024 DIABETES SCREEN DIABETES SCREEN [facility] Start: 02-27-2022 COVID-19 VACCINE (5 - Booster for Pfizer series) COVID-19 VACCINE (5 - Booster for Pfizer series) [facility] Start: 02-01-2022 ANNUAL PCP TEAM METER AND SERVICE LINE INSPECTOR MAURO DISEASE VISIT ANNUAL PCP TEAM CHRONIC DISEASE VISIT [facility] Start: 01-24-2022 Influenza vaccination INFLUENZA (#1) [facility] Start: 11-03-2021 BP CONTROLLED (<130/80) BP CONTROLLE D (<130/80) [facility] Start: 10-18-2021 COVID-19 VACCINE (4 - Booster for Pfizer series) COVID-19 VACCINE (4 - Booster for Pfizer series) [facility] Start: 05-26-2021 ADVANCE DIRECTIVE DISCUSSION ADVANCE DIRECTIVE DISCUSSION [facility] Start: 05-26-2021 DEPRESSION ASSESSMENT DEPRESSION ASS ESSMENT [facility] Start: 07-06-2019 Adult depression scr eening assessment DEPRESSION SCREENING [facility] Start: 1990 SHINGRIX VACCINE (1 of 2) JEAN-BAPTISTE GRIX VACCINE (1 of 2) [facility] Immunizations Immunization Date Immunization Notes Care Provider Fa jordan 01-02-2022 COVID-19 original vaccine, age 12+ yr, monovalent (PFIZER-BIONTECH - PURPLE TOP) Torres Erwin MD Work Phone: [facility] 03-11-2020 influenza, high-dose , quadrivalent vaccine (FLUZONE HIGH DOSE QUADRIVALENT) Torres Erwin MD Work Phone: [facility] Work Phone: 03-04-2020 influenza, high dose seasonal, preservative-free Torres Erwin MD Work Phone: [facility] 03-11-2019 pneumococcal conjuga te vaccine, 13 valent Torres Erwin MD Work Phone: [facility] Work Phone: 03-10-2019 influenza, high dose seasonal, preservative-free Torres Erwin MD Work Phone: [facility] Work Phone: 11-03-2018 tetanus toxoid, redu oswaldo diphtheria toxoid, and acellular pertussis vaccine, adsorbed Torres Erwin MD Work Phone: [facility] Work Phone: 03-12-2018 influenza, high dose seasonal, preservative-free Torres Erwin MD Work Phone: [facility] Work Phone: 03-12-2018 pneumococcal conjuga te vaccine, 13 valent Torres Erwin MD Work Phone: [facility] Work Phone: 02-23-2018 pneumococcal polysaccharide vaccine, 23 valent Qamar Judd MD Work Phone: [facility] 03-04-2016 influenza, high dose seasonal, preservative-free Torres Erwin MD Work Phone: [facility] 08-08-2015 Seasonal, trivalent, recombinant, injectable influenza vaccine, preservative free Torres Erwin MD Work Phone: [facility] Work Phone: 03-08-2015 influenza, high dose seasonal, preservative-free Torres Erwin MD Work Phone: [facility] Work Phone: 08-12-2014 pneumococcal conjuga te vaccine, 13 valent Torres Erwin MD Work Phone: [facility] 04-01-2011 pneumococcal polysaccharide vaccine, 23 valent Torres Erwin MD Work Phone: [facility] Work Phone: Payers Date Payer Category Payer Medicare HU[employer]NA MEDICARE HU[employer]NA GOLD PLUS [id number] 2013-Present [phone] [address] [address] [place] [address] [facility] [id number] 2013 Medicare HUMANA MEDICARE HUMANA GOLD PLUS [id number] 2013-Present [phone] [address] [address] [place] [address] O [id number] 2013 Private Health Insurance [id number] Social History Date Type Detail Facility [facility]: [facility] Start: 08-12-2014 Tobacco use and exposure Smoke less tobacco non-user [facility] Start: 08-23-2021 End: 09-29-2021 Alcohol intake Current non-drinker of alcohol (finding) [facility] Start: 1940 Sex Assigned At Not on file [facility] Start: 09-06-2021 End: 09-16-2021 Exposure to SARS-CoV-2 (event) Not sure [facility] Medical Equipment Procedure Code Equipment Code Equipment Origin al Text Equipment Identifier Dates Mesh 3dmax Large Polypropylene 6x4in Surgical Nonabsorbable Patch Preform - [id number] Start: 04-09-2016 Mesh 3dmax Large Polypropylene 6x4in Surgical Nonabsorbable Patch Preform - [id number] Start: 04-09-2016 Clinical Notes 02-26-2021 to 04-22-2022 Telephone Encounter - Torres Erwin MD - 02/28/2022 12:38 PM EDTTelephone Encounter - Bryanna Bailey MA - 02/28/2022 10:16 AM EDTTelephone Encounter - Cynthia Maria Ma - 12/25/2021 12:32 PM EDT Note Date & Type Note Facility 04-22-2022 Note HNO ID: [id number] Author: France Beck APRN.CNP Service: Hospital Medicine Author Type: Nurse Practitioner Type: Progress Notes Filed: 04/22/2022 1:36 PM Note Text: DEPARTMENT OF HOSPITAL MEDICINE PROGRESS NOTE SERVICE DATE: 04/22/2022 SERVICE TIME: 9:49 AM Hospital Medicine/Primary Attending: Jena Youngblood MD NIGHT AND WEEKEND COVERAGE: MAYS COVERAGE: Days: [phone], please page attending physician. Nights: [phone], please page [facility] Night coverage pager [phone]. Subjective CC: Fall INTERVAL HPI: - Resting in bed, denies any pain - No shortness of breath, fever or chills - Appetite is good without any nausea or vomiting - No oxygen requirement - DC planning to SNF- awaiting pre cert Current Facility-Administered Medications Medication Dose Route Frequency acetaminophen 1,000 mg tab(s) (TYLENOL) 1,000 mg ORAL q 8 H heparin 5,000 Units injection 5,000 Units SUBCUTANEOUS q 12 H NaCl 0.9% iv flush bag 20 mL INTRAVENOUS PRN sodium chloride 0.9 % (flush) 3-5 mL (BD POSIFLUSH) 3-5 mL INTRAVENOUS q 12 H lidocaine 4 % 2 Patch (SALONPAS) 2 Patch TRANSDERMAL DAILY AT 9 PM And lidocaine patch - REMOVE OTHER DAILY And lidocaine - VERIFY PATCH OTHER q 8 H guaiFENesin 600 mg ER tab(s) (MUCINEX) 600 mg ORAL q 12 H PRN albuterol HFA 90 mcg/actuation 2 Puff (PROVENTIL HFA, VENTOLIN HFA) 2 Puff INHALATION q 4 H PRN tamsulosin 0.4 mg cap(s) (FLOMAX) 0.4 mg ORAL DAILY ferrous sulfate 325 mg tab(s) 325 mg ORAL DAILY WITH BREAKFAST iv contrast (radiology procedure) INTRAVENOUS DIRECTED PRN aspirin 325 mg tab(s) 325 mg ORAL DAILY Objective PHYSICAL EXAM: BP 120/70 Pulse 58 Temp (Src) 97.2 (Oral) Resp 18 Wt 93 lb 14.7 oz (42.6kg) SpO2 100% O2 Therapy: Room Air Physical Exam Performed GENERAL: Alert, no distress, cooperative. He is hard of hearing SKIN: No rashes or lesions. HEAD/SINUSES: No significant findings. AT/NC EYES: Anicteric sclera, EOMI OROPHARYNX: MMM LUNGS: Lungs clear to auscultation, good diaphragmatic excursion, he is speaking in full sentences CARDIAC: Normal S1 and S2; no rubs, murmurs, or gallops ABDOMEN: Abdomen soft, non-tender, BS present EXTREMITIES: No edema or vascular discoloration Lines, Drains, and Airways Line Duration Peripheral Assessment Short Left Antecubital 20 Gauge -- days Drain Duration External Collection Device 04/20/22 1559 1 day Reviewed lines and needs to be continued: REASONS: Intravenous fluids DATA: Diagnostic tests reviewed for today's visit: Most recent labs Most recent imaging Recent Labs 04/22/22 0447 04/21/22 0553 04/20/22 0546 WBC 2.98* 2.64* 2.11* HB 13.1 12.5* 11.5* PLT 111* 108* 106* NA 127* 130* 131* K 4.3 4.4 3.5* CO2 23 21* 20* BUN 11 15 16 CREAT 0.62* 0.61* 0.62* AST 25 20 18 ALT 12 9* 8* TBILI 0.4 0.3 0.3 ALKPHOS 88 80 72 Assessment/Plan HOSPITAL COURSE: Dane Martinez is a 81 year old male with a past medical history of HTN, RADHA, and BPH who presented to the ER for evaluation after sustaining a mechanical fall at home. He complained of low back pain on presentation to CT lumbar spine obtained and showed moderate compression fx at T12 of indeterminate age. He was incidentally found to be covid positive. CXR with bibasilar atelectasis vs airspace dx. SpO2 high 90's on room air. Admitted to Medicine for further evaluation and management. Problem List: Generalized Weakness Mechanical Fall T12 compression fracture - Presented for evaluation of mechanical fall at home and complaints of low back pain - CT lumbar spine notes Moderate compression fracture of T12 which is age indeterminate. - Pain controlled with scheduled tylenol and lidocaine patches - PRN toradol - PT/OT evaluations obtained and recommending SNF- awaiting pre cert to [facility] - Avoid narcotics as they alter his mentation COVID-19 COVID-19 vaccine series completed - Incidentally noted on COVID PCR+ 04/17/2022 - Asymptomatic and not requiring any oxygen - CXR- Bibasilar atelectasis versus airspace disease - dDimer elevated at [address] chest negative for PE - CRP 1.2, procal negative, Ferritin 102.5 - ID consulted - 3 day course of Remdesivir completed per PINETREE criteria - last dose on 04/20 - DVT prophylaxis with SQ heparin - Monitor respiratory status Sinus bradycardia - Asymptomatic and mild- HR 50's range - Not on any av batool blocking agents - Began after administration of Remdesivir - Will likely improve over the next few days Hyponatremia - Admission Na 127-- appears chronic - Improved to low 130's IVF and now back down to 127 - Check urine sodium, urine osmo, and serum osmo - Monitor Essential hypertension - Continue Lisinopril Metabolic encephalopathy- RESOLVED - CT brain negative acute, but notes Mild microvascular ischemic changes - UA negative for infection - CXR-- Bibasilar atelectasis versus airspace (more content not included)... [facility] 04-21-2022 Note HNO ID: [id number] Author: Leidy Augustin RN Service: ? Author Type: Registered Nurse Type: Progress Notes Filed: 04/21/2022 7:15 PM Note Text: Pts blood sugar 55, asymptomatic, pt agreed to eat a pudding, will recheck at 1850 and treat as needed. See flowsheet for one hour recheck, no further interventions needed, will continue to monitor and check blood sugar as ordered [facility] 04-21-2022 Note HNO ID: [id number] Author: France Beck APRN.CNP Service: Hospital Medicine Author Type: Nurse Practitioner Type: Progress Notes Filed: 04/21/2022 12:15 PM Note Text: DEPARTMENT OF HOSPITAL MEDICINE PROGRESS NOTE SERVICE DATE: 04/21/2022 SERVICE TIME: 12:12 PM Hospital Medicine/Primary Attending: Jena Youngblood MD NIGHT AND WEEKEND COVERAGE: [employer] [place] COVERAGE: Days: [phone], please page attending physician. Nights: [phone], please page [facility] Night coverage pager [phone]. Subjective CC: Fall INTERVAL HPI: - Resting in bed, denies any pain - No shortness of breath, fever or chills - Appetite is good without any nausea or vomiting - No oxygen requirement - DC planning to SNF- awaiting pre cert Current Facility-Administered Medications Medication Dose Route Frequency acetaminophen 1,000 mg tab(s) (TYLENOL) 1,000 mg ORAL q 8 H heparin 5,000 Units injection 5,000 Units SUBCUTANEOUS q 12 H NaCl 0.9% iv flush bag 20 mL INTRAVENOUS PRN sodium chloride 0.9 % (flush) 3-5 mL (BD POSIFLUSH) 3-5 mL INTRAVENOUS q 12 H lidocaine 4 % 2 Patch (SALONPAS) 2 Patch TRANSDERMAL DAILY AT 9 PM And lidocaine patch - REMOVE OTHER DAILY And lidocaine - VERIFY PATCH OTHER q 8 H guaiFENesin 600 mg ER tab(s) (MUCINEX) 600 mg ORAL q 12 H PRN albuterol HFA 90 mcg/actuation 2 Puff (PROVENTIL HFA, VENTOLIN HFA) 2 Puff INHALATION q 4 H PRN tamsulosin 0.4 mg cap(s) (FLOMAX) 0.4 mg ORAL DAILY ferrous sulfate 325 mg tab(s) 325 mg ORAL DAILY WITH BREAKFAST iv contrast (radiology procedure) INTRAVENOUS DIRECTED PRN aspirin 325 mg tab(s) 325 mg ORAL DAILY Objective PHYSICAL EXAM: BP 136/71 Pulse 47 Temp (Src) 97.4 (Temporal Artery) Resp 18 Wt 93 lb 14.7 oz (42.6kg) SpO2 100% O2 Therapy: Room Air Physical Exam Performed GENERAL: Alert, no distress, cooperative. He is hard of hearing SKIN: No rashes or lesions. HEAD/SINUSES: No significant findings. AT/NC EYES: Anicteric sclera, EOMI OROPHARYNX: MMM LUNGS: Lungs clear to auscultation, good diaphragmatic excursion, he is speaking in full sentences CARDIAC: Normal S1 and S2; no rubs, murmurs, or gallops ABDOMEN: Abdomen soft, non-tender, BS present EXTREMITIES: No edema or vascular discoloration Lines, Drains, and Airways Line Duration Peripheral Assessment Short Left Antecubital 20 Gauge -- days Drain Duration External Collection Device 04/20/22 1559 <1 day Reviewed lines and needs to be continued: REASONS: Intravenous fluids DATA: Diagnostic tests reviewed for today's visit: Most recent labs Most recent imaging Recent Labs 04/21/22 0553 04/20/22 0546 04/19/22 0555 WBC 2.64* 2.11* 4.37 HB 12.5* 11.5* 13.3 PLT 108* 106* 117* NA 130* 131* 133* K 4.4 3.5* 4.3 CO2 21* 20* 26 BUN 15 16 18 CREAT 0.61* 0.62* 0.94 AST 20 18 19 ALT 9* 8* 9* TBILI 0.3 0.3 0.5 ALKPHOS 80 72 94 Assessment/Plan HOSPITAL COURSE: Dane Martinez is a 81 year old male with a past medical history of HTN, RADHA, and BPH who presented to the ER for evaluation after sustaining a mechanical fall at home. He complained of low back pain on presentation to CT lumbar spine obtained and showed moderate compression fx at T12 of indeterminate age. He was incidentally found to be covid positive. CXR with bibasilar atelectasis vs airspace dx. SpO2 high 90's on room air. Admitted to Medicine for further evaluation and management. Problem List: Generalized Weakness Mechanical Fall T12 compression fracture - Presented for evaluation of mechanical fall at home and complaints of low back pain - CT lumbar spine notes Moderate compression fracture of T12 which is age indeterminate. - Pain controlled with scheduled tylenol and lidocaine patches - PRN toradol - PT/OT evaluations obtained and recommending SNF- awaiting pre cert to [facility] - Avoid narcotics as they alter his mentation COVID-19 COVID-19 vaccine series completed - Incidentally noted on COVID PCR+ 04/17/2022 - Asymptomatic and not requiring any oxygen - CXR- Bibasilar atelectasis versus airspace disease - dDimer elevated at [address] chest negative for PE - CRP 1.2, procal negative, Ferritin 102.5 - ID consulted - 3 day course of Remdesivir ordered per PINETREE criteria - last dose on 04/20 - DVT prophylaxis with SQ heparin - Monitor respiratory status Hyponatremia - Admission Na 127-- appears chronic - Improved to low 130's IVF - Monitor Essential hypertension - Continue Lisinopril Metabolic encephalopathy- RESOLVED - CT brain negative acute, but notes Mild microvascular ischemic changes - UA negative for infection - CXR-- Bibasilar atelectasis versus airspace disease Medication and Non-Pharmacologic VTE Prophylaxis/Anticoagulants Anticoagulant AND Antiplatelet Medications (From admission, onward) Start Dose Route Frequency Last Action Ordered Stop 04/20/22 0900 aspirin 325 mg tab(s) 325 mg ORAL DAILY Giv (more content not included)... [facility] 04-20-2022 Note HNO ID: [id number] Author: France Beck APRN.CNP Service: Hospital Medicine Author Type: Nurse Practitioner Type: Progress Notes Filed: 04/20/2022 1:03 PM Note Text: DEPARTMENT OF HOSPITAL MEDICINE PROGRESS NOTE SERVICE DATE: 04/20/2022 SERVICE TIME: 1:01 PM Hospital Medicine/Primary Attending: Jena Youngblood MD NIGHT AND WEEKEND COVERAGE: [employer] COVERAGE: Days: [phone], please page attending physician. Nights: [phone], please page [facility] pager [phone]. Subjective CC: Fall INTERVAL HPI: - Resting in bed, denies any pain - No shortness of breath, fever or chills - Appetite is good without any nausea or vomiting - No oxygen requirement - DC planning to SNF- awaiting pre cert Current Facility-Administered Medications Medication Dose Route Frequency acetaminophen 1,000 mg tab(s) (TYLENOL) 1,000 mg ORAL q 8 H heparin 5,000 Units injection 5,000 Units SUBCUTANEOUS q 12 H NaCl 0.9% iv flush bag 20 mL INTRAVENOUS PRN sodium chloride 0.9 % (flush) 3-5 mL (BD POSIFLUSH) 3-5 mL INTRAVENOUS q 12 H lidocaine 4 % 2 Patch (SALONPAS) 2 Patch TRANSDERMAL DAILY AT 9 PM And lidocaine patch - REMOVE OTHER DAILY And lidocaine - VERIFY PATCH OTHER q 8 H keTORolac 15 mg injection (TORADOL) 15 mg INTRAVENOUS q 6 H PRN guaiFENesin 600 mg ER tab(s) (MUCINEX) 600 mg ORAL q 12 H PRN albuterol HFA 90 mcg/actuation 2 Puff (PROVENTIL HFA, VENTOLIN HFA) 2 Puff INHALATION q 4 H PRN tamsulosin 0.4 mg cap(s) (FLOMAX) 0.4 mg ORAL DAILY ferrous sulfate 325 mg tab(s) 325 mg ORAL DAILY WITH BREAKFAST iv contrast (radiology procedure) INTRAVENOUS DIRECTED PRN remdesivir in NaCl 0.9% Vial-Mate/ADD-[place] 100 mg 275 mL 100 mg INTRAVENOUS q 24 HR aspirin 325 mg tab(s) 325 mg ORAL DAILY Objective PHYSICAL EXAM: BP 121/68 Pulse 52 Temp (Src) 97.5 (Oral) Resp 12 Wt 93 lb 14.7 oz (42.6kg) SpO2 100% O2 Therapy: Room Air Physical Exam Performed GENERAL: Alert, no distress, cooperative. He is hard of hearing SKIN: No rashes or lesions. HEAD/SINUSES: No significant findings. AT/NC EYES: Anicteric sclera, EOMI OROPHARYNX: MMM LUNGS: Lungs clear to auscultation, good diaphragmatic excursion, he is speaking in full sentences CARDIAC: Normal S1 and S2; no rubs, murmurs, or gallops ABDOMEN: Abdomen soft, non-tender, BS present EXTREMITIES: No edema or vascular discoloration Lines, Drains, and Airways Line Duration Peripheral Assessment Short Left Antecubital 20 Gauge -- days Reviewed lines and needs to be continued: REASONS: Intravenous fluids DATA: Diagnostic tests reviewed for today's visit: Most recent labs Most recent imaging Recent Labs 04/20/22 0546 04/19/22 0555 04/18/22 1301 04/18/22 0623 04/17/22 2233 04/17/22 1911 WBC 2.11* 4.37 -- 4.09 -- -- HB 11.5* 13.3 -- 13.9 -- -- PLT 106* 117* -- 140* -- -- NA 131* 133* 128* 129* -- -- K 3.5* 4.3 3.7 3.9 -- -- CO2 20* 26 25 24 -- -- BUN 16 18 12 14 -- -- CREAT 0.62* 0.94 0.70* 0.68* -- -- AST 18 19 17 19 -- < > ALT 8* 9* 9* 9* -- < > TBILI 0.3 0.5 0.6 0.7 -- < > ALKPHOS 72 94 103 107 -- < > CRP -- -- -- -- 1.2* -- < > = values in this interval not displayed. Assessment/Plan HOSPITAL COURSE: Dane Martinez is a 81 year old male with a past medical history of HTN, RADHA, and BPH who presented to the ER for evaluation after sustaining a mechanical fall at home. He complained of low back pain on presentation to CT lumbar spine obtained and showed moderate compression fx at T12 of indeterminate age. He was incidentally found to be covid positive. CXR with bibasilar atelectasis vs airspace dx. SpO2 high 90's on room air. Admitted to Medicine for further evaluation and management. Problem List: Generalized Weakness Mechanical Fall T12 compression fracture - Presented for evaluation of mechanical fall at home and complaints of low back pain - CT lumbar spine notes Moderate compression fracture of T12 which is age indeterminate. - Pain controlled with scheduled tylenol and lidocaine patches - PRN toradol - PT/OT evaluations obtained and recommending SNF- awaiting pre cert to [facility] - Avoid narcotics as they alter his mentation COVID-19 COVID-19 vaccine series completed - Incidentally noted on COVID PCR+ 04/17/2022 - Asymptomatic and not requiring any oxygen - CXR- Bibasilar atelectasis versus airspace disease - dDimer elevated at [address] chest negative for PE - CRP 1.2, procal negative, Ferritin 102.5 - ID consulted - 3 day course of Remdesivir ordered per PINETREE criteria - last dose on 04/20 - DVT prophylaxis with SQ heparin - Monitor respiratory status Hyponatremia - Admission Na 127-- appears chronic - Improved to low 130's IVF - Monitor Essential hypertension - Continue Lisinopril Metabolic encephalopathy- RESOLVED - CT brain negative acute, but notes Mild microvascular ischemic changes - UA negative for infe (more content not included)... [facility] 04-19-2022 Note HNO ID: [id number] Author: France Beck APRN.CNP Service: Hospital Medicine Author Type: Nurse Practitioner Type: Progress Notes Filed: 04/19/2022 1:10 PM Note Text: DEPARTMENT OF HOSPITAL MEDICINE PROGRESS NOTE SERVICE DATE: 04/19/2022 SERVICE TIME: 10:31 AM Hospital Medicine/Primary Attending: Jessica Edge MD NIGHT AND WEEKEND COVERAGE: [employer] [place] COVERAGE: Days: [phone], please page attending physician. Nights: [phone], please page [facility] Night coverage pager [phone]. Subjective CC: Fall INTERVAL HPI: - Resting in bed, denies any pain - No shortness of breath, fever or chills - Appetite is good without any nausea or vomiting - No oxygen requirement Current Facility-Administered Medications Medication Dose Route Frequency acetaminophen 1,000 mg tab(s) (TYLENOL) 1,000 mg ORAL q 8 H heparin 5,000 Units injection 5,000 Units SUBCUTANEOUS q 12 H NaCl 0.9% iv flush bag 20 mL INTRAVENOUS PRN sodium chloride 0.9 % (flush) 3-5 mL (BD POSIFLUSH) 3-5 mL INTRAVENOUS q 12 H lidocaine 4 % 2 Patch (SALONPAS) 2 Patch TRANSDERMAL DAILY AT 9 PM And lidocaine patch - REMOVE OTHER DAILY And lidocaine - VERIFY PATCH OTHER q 8 H keTORolac 15 mg injection (TORADOL) 15 mg INTRAVENOUS q 6 H PRN guaiFENesin 600 mg ER tab(s) (MUCINEX) 600 mg ORAL q 12 H PRN albuterol HFA 90 mcg/actuation 2 Puff (PROVENTIL HFA, VENTOLIN HFA) 2 Puff INHALATION q 4 H PRN lisinopril 20 mg tab(s) (ZESTRIL, PRINIVIL) 20 mg ORAL DAILY tamsulosin 0.4 mg cap(s) (FLOMAX) 0.4 mg ORAL DAILY ferrous sulfate 325 mg tab(s) 325 mg ORAL DAILY WITH BREAKFAST iv contrast (radiology procedure) INTRAVENOUS DIRECTED PRN remdesivir in NaCl 0.9% Vial-Mate/ADD-[place] 100 mg 275 mL 100 mg INTRAVENOUS q 24 HR NaCl 0.9% iv infusion 75 mL/hr INTRAVENOUS CONTINUOUS Objective PHYSICAL EXAM: BP 127/98 Pulse 63 Temp (Src) 97.7 (Tympanic) Resp 18 SpO2 95% O2 Therapy: Room Air Physical Exam Performed GENERAL: Alert, no distress, cooperative. He is hard of hearing SKIN: No rashes or lesions. HEAD/SINUSES: No significant findings. AT/NC EYES: Anicteric sclera, EOMI OROPHARYNX: MMM LUNGS: Lungs clear to auscultation, good diaphragmatic excursion, he is speaking in full sentences CARDIAC: Normal S1 and S2; no rubs, murmurs, or gallops ABDOMEN: Abdomen soft, non-tender, BS present EXTREMITIES: No edema or vascular discoloration Lines, Drains, and Airways Line Duration Peripheral Assessment Short Left Antecubital 20 Gauge -- days Reviewed lines and needs to be continued: REASONS: Intravenous fluids DATA: Diagnostic tests reviewed for today's visit: Most recent labs Most recent imaging Recent Labs 04/19/22 0555 04/18/22 1301 04/18/22 0623 04/17/22 2233 04/17/22 1911 WBC 4.37 -- 4.09 -- 5.04 HB 13.3 -- 13.9 -- 13.3 PLT 117* -- 140* -- 160 NA 133* 128* 129* -- 127* K 4.3 3.7 3.9 -- 4.7 CO2 26 25 24 -- 26 BUN 18 12 14 -- 14 CREAT 0.94 0.70* 0.68* -- 0.70* AST 19 17 19 -- -- ALT 9* 9* 9* -- -- TBILI 0.5 0.6 0.7 -- -- ALKPHOS 94 103 107 -- -- CRP -- -- -- 1.2* -- Assessment/Plan HOSPITAL COURSE: Dane Martinez is a 81 year old male with a past medical history of HTN, RADHA, and BPH who presented to the ER for evaluation after sustaining a mechanical fall at home. He complained of low back pain on presentation to CT lumbar spine obtained and showed moderate compression fx at T12 of indeterminate age. He was incidentally found to be covid positive. CXR with bibasilar atelectasis vs airspace dx. SpO2 high 90's on room air. Admitted to Medicine for further evaluation and management. Problem List: Generalized Weakness Mechanical Fall T12 compression fracture - Presented for evaluation of mechanical fall at home and complaints of low back pain - CT lumbar spine notes Moderate compression fracture of T12 which is age indeterminate. - Pain controlled with scheduled tylenol and lidocaine patches - PRN toradol - PT/OT evaluations obtained and recommending SNF- awaiting pre cert to [facility] - Avoid narcotics as they altered mentation COVID-19 COVID-19 vaccine series completed - Incidentally noted on COVID PCR+ 04/17/2022 - Asymptomatic and not requiring any oxygen - CXR- Bibasilar atelectasis versus airspace disease - dDimer elevated at [address] chest negative for PE - CRP 1.2, procal negative, Ferritin 102.5 - ID consulted - 3 day course of prophylactic Remdesivir ordered - DVT prophylaxis with SQ heparin - Monitor respiratory status Hyponatremia - Admission Na 127-- appears chronic - Improved to 133 with IVF - Monitor Essential hypertension - Continue Lisinopril Metabolic encephalopathy- RESOLVED - CT brain negative acute, but notes Mild microvascular ischemic changes - UA negative for infection - CXR-- Bibasilar atelectasis versus airspace disease. Medication and Non-Pharmacologic VTE Prophylaxis/Anticoagulants Antic (more content not included)... [facility] 04-18-2022 Note HNO ID: [id number] Author: Isaias Abbasi PA-C Service: Hospital Medicine Author Type: Physician Transport Specialist Type: Progress Notes Filed: 04/18/2022 11:41 AM Note Text: DEPARTMENT OF HOSPITAL MEDICINE PROGRESS NOTE SERVICE DATE: 04/18/2022 SERVICE TIME: 11:35 AM Hospital Medicine/Primary Attending: Jessica Edge MD NIGHT AND WEEKEND COVERAGE: [place] [place] COVERAGE: Days: [phone], please page attending physician. Nights: [phone], please page [facility] Night coverage pager [phone]. Subjective INTERVAL HPI: -pt admitted after mechanical fall -on floor for a few hours as he couldn't get up -c/o low back pain, CT showed moderate compression fx at T12 of indeterminate age -found to be covid positive; CXR with bibasilar atelectasis vs airspace dx -satting high 90s RA -denies LBP presently -await PT/OT Current Facility-Administered Medications Medication Dose Route Frequency acetaminophen 1,000 mg tab(s) (TYLENOL) 1,000 mg ORAL q 8 H heparin 5,000 Units injection 5,000 Units SUBCUTANEOUS q 12 H NaCl 0.9% iv flush bag 20 mL INTRAVENOUS PRN sodium chloride 0.9 % (flush) 3-5 mL (BD POSIFLUSH) 3-5 mL INTRAVENOUS q 12 H lidocaine 4 % 2 Patch (SALONPAS) 2 Patch TRANSDERMAL DAILY AT 9 PM And lidocaine patch - REMOVE OTHER DAILY And lidocaine - VERIFY PATCH OTHER q 8 H keTORolac 15 mg injection (TORADOL) 15 mg INTRAVENOUS q 6 H PRN guaiFENesin 600 mg ER tab(s) (MUCINEX) 600 mg ORAL q 12 H PRN albuterol HFA 90 mcg/actuation 2 Puff (PROVENTIL HFA, VENTOLIN HFA) 2 Puff INHALATION q 4 H PRN lisinopril 20 mg tab(s) (ZESTRIL, PRINIVIL) 20 mg ORAL DAILY tamsulosin 0.4 mg cap(s) (FLOMAX) 0.4 mg ORAL DAILY ferrous sulfate 325 mg tab(s) 325 mg ORAL DAILY WITH BREAKFAST iv contrast (radiology procedure) INTRAVENOUS DIRECTED PRN Objective PHYSICAL EXAM: BP 153/73 Pulse 68 Temp (Src) 98.2 (Oral) Resp 15 SpO2 99% O2 Therapy: Room Air Physical Exam Performed GENERAL: alert, no distress, cooperative SKIN: Skin color, texture, turgor normal. No rashes or lesions. NECK: no jugulovenous distention, supple BACK: Back symmetric, Normal curvature, ROM normal, No CVAT. LUNGS: Lungs clear to auscultation. Good diaphragmatic excursion. CARDIAC: RRR; no rubs, murmurs, or gallops ABDOMEN: Abdomen soft, non-tender. BS normal. No masses or organomegaly. EXTREMITIES: Extremities normal. No deformities, edema, clubbing or skin discoloration., No ulcers NEURO: Sensation grossly intact., Cranial nerves II-XII intact Lines, Drains, and Airways Line Duration Peripheral Assessment Short Left Antecubital 20 Gauge -- days Reviewed lines and needs to be continued: REASONS: Electrolyte replacement DATA: Diagnostic tests reviewed for today's visit: Most recent labs Most recent imaging Assessment/Plan Problem List Weakness POA: Yes Essential hypertension POA: Yes Hyponatremia POA: Yes Fall POA: Yes T12 compression fracture (HCC) POA: Yes COVID-19 POA: Yes COVID-19 vaccine series completed POA: Yes Metabolic encephalopathy POA: Yes HOSPITAL COURSE: Pt admitted after mechanical fall. He was on the floor for a few hours as he couldn't get up. Complained of low back pain, CT showed moderate compression fx at T12 of indeterminate age. Found to be covid positive. CXR with bibasilar atelectasis vs airspace dx. Satting high 90s RA. Principal Problem: Weakness Fall T12 compression fracture (HCC) CT lumbar spine notes Moderate compression fracture of T12 which is age indeterminate. Start scheduled tylenol and lidocaine patches PRN toradol PT/OT eval Case management consult CK level - wnl Avoid narcotics in light of acute confusion AM labs Will need outpatient neurosurgery follow-up COVID-19 COVID-19 vaccine series completed PCR+ 04/17/2022 CXR-- Bibasilar atelectasis versus airspace disease. On RA Received last COVID booster 01/02/2022 Consult ID Daily trop x3 PRN inhalers Monitor on tele PRN Mucinex Incentive spirometer DVT prophylaxis : heparin AM labs -satting high 90s on RA -no covid specific therapy at this time Lab Results Component Value Date PROCLT 0.06 04/17/2022 CRP 1.2 (H) 04/17/2022 ERICH 102.5 07/02/2019 DDMER 3,140 (H) 04/17/2022 Hyponatremia Na 127-- appears chronic Responded to IVF in the past Received IVF in the ED-- will hold off on additional IVF for now given COVID+ status Check osmo/Na studies AM labs Consider nephrology consult in AM pending clinical course -129 today Essential hypertension Continue home medication Metabolic encephalopathy Appears resolved at this time-- alert and oriented x4 CT brain negative acute, but notes Mild microvascular ischemic changes UA negative for infection CXR-- Bibasilar atelectasis versus airspace disease. Check TSH, b12, folate Hold ASA tonight -- can resume in AM if confusion does not reoccur AM labs Medication and Non-Pharmacologi (more content not included)... [facility] 02-28-2022 Miscellaneous Notes Formattin g of this note might be different from the original. Please schedule follow up visit. Last appointment: 11/03/20 Next appointment: N/A Pharmacy verified in [facility]. Refill(s) requested: Requested Prescriptions Pending Prescriptions Disp Refills lisinopril (ZESTRIL, PRINIVIL) 20 mg tablet [Pharmacy Med Name: LISINOPRIL 20 MG TABLET] 90 tablet 1 Sig: TAKE 1 TABLET BY MOUTH EVERY DAY Order(s) pended. Please advise. Bryanna Bailey MA, INDUSTRIAL REGISTERED NURSE documented in this encounter [facility] 12-25-2021 Miscellaneous Notes Last appointment: 11/03/20 Next appointment: n/a Pharmacy verified in [facility]. Refill(s) requested: Pending Prescriptions Disp Refills TAMSULOSIN 0.4 MG CAPSULE 180 capsule 1 Sig: TAKE 2 CAPSULES BY MOUTH EVERY DAY PARI: Yes Order(s) pended. Please advise. Cynthia Maria Ma INDUSTRIAL REGISTERED NURSE documented in this encounter [facility] 09-17-2021 Miscellaneous Notes Pharmacy verified in [facility]. Patient has been identified by name and date of : Yes Patient aware RX will be sent to pharmacy. No need to notify patient. Patient phones for refill(s): Pending Prescriptions Disp Refills LISINOPRIL 20 MG TABLET 90 tablet 1 Sig: TAKE 1 TABLET BY MOUTH EVERY DAY PARI: Yes Date of last office visit : 07/31/2020 Date of next office visit : Visit date not found Last 2 Encounter Wt Readings: Date: Wt: 09/16/2021 48.1 kg (106 lb) 08/23/2021 48.1 kg (106 lb) Blood Pressure: BUN (mg/dL) Date Value 08/23/2021 19 11/03/2020 12 Creatinine (mg/dL) Date Value 08/23/2021 1.14 11/03/2020 0.77 Sodium (mmol/L) Date Value 08/23/2021 126 11/03/2020 130 Potassium (mmol/L) Date Value 08/23/2021 4.5 11/03/2020 4.9 Last 1 Encounter BP Readings: Date: BP: 09/16/2021 127/71 Please advise. Balbina Reid MA documented in this encounter [facility] 02-26-2021 History of Past i llness Narrative Problem Noted Date Resolved Date Aftercare 02/26/2021 03/05/2021 Neutrophilic leukocytosis 07/17/20162016 documented as of this encounter (statuses as of 09/17/2021) [facility] History of Past illness Narrative* Problem Noted Date Resolved Date Aftercare 02/26/2021 03/05/2021 Neutrophilic leukocytosis 07/17/20162016 documented as of this encounter (statuses as of 12/25/2021) [facility] History of Past illness Narrative* Problem Noted Date Resolved Date Aftercare 02/26/2021 03/05/2021 Neutrophilic leukocytosis 07/17/20162016 documented as of this encounter (statuses as of 02/28/2022) [facility] Essential hypertension Unspecified essential hypertension [facility] Diagnosis Benign prostatic hyperplasia with nocturia documented in this encounter [facility] Diagnosis Essential hypertension Unspecified essential hypertension documented in this encounter [facility] Summary Purpose Family History No Family History Records FoundNo Family History Records FoundNo Family History Records FoundNo Family History Records Found Advance Directives No Advanced Directives Records FoundDocuments on File Type Date Recorded 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 Advance Directive(s) 09/16/2021 8:03 PM Advance Directive(s) 08/23/2021 12:46 AM Advance Directive(s) 07/03/2021 11:59 PM Advance Directive(s) 05/30/2021 5:30 PM Advance Directive(s) 02/26/2021 6:32 PM Advance Directive(s) 02/25/2021 4:54 PM Advance Directive(s) 02/25/2021 11:53 PM Advance Directive(s) 12/18/2020 10:43 AM Advance Directive(s) 02/27/2019 9:42 PM Advance Directive(s) 11/03/2018 6:01 PM Advance Directive(s) 11/02/2018 8:47 PM Advance Directive(s) 06/05/2018 7:59 PM Advance Directive(s) 06/13/2017 12:20 AM Advance Directive(s) 09/03/2016 8:23 AM Advance Directive(s) 04/09/2016 12:53 PM Documents on File Type Date Recorded 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 Advance Directive(s) 09/29/2021 3:36 PM Advance Directive(s) 09/16/2021 8:03 PM Advance Directive(s) 08/23/2021 12:46 AM Advance Directive(s) 07/03/2021 11:59 PM Advance Directive(s) 05/30/2021 5:30 PM Advance Directive(s) 02/26/2021 6:32 PM Advance Directive(s) 02/25/2021 4:54 PM Advance Directive(s) 02/25/2021 11:53 PM Advance Directive(s) 12/18/2020 10:43 AM Advance Directive(s) 02/27/2019 9:42 PM Advance Directive(s) 11/03/2018 6:01 PM Advance Directive(s) 11/02/2018 8:47 PM Advance Directive(s) 06/05/2018 7:59 PM Advance Directive(s) 06/13/2017 12:20 AM Advance Directive(s) 09/03/2016 8:23 AM Advance Directive(s) 04/09/2016 12:53 PM Additional Source Comments (unrecognized sect ion and content) No Status Records FoundNo Status Records FoundNo Status Records FoundNo Status Records Found INFORMATION SOURCE (unrecogn ized section and content) DATE CREATED AUTHOR 03/01/2019 [place] [facility] DATE CREATED AUTHOR AUTHOR'S ORGANIZ ATION 04/24/2022 [facility] DATE CREATED AUTHOR AUTHOR'S ORGANIZ ATION 05/24/2022 [facility] DATE CREATED AUTHOR AUTHOR'S ORGANIZ ATION 05/06/2023 [place] [facility] [place] Source Comments (unrecognize d section and content) In the event this informatio n is protected by the Federal Confidentiality of Alcohol and Drug Abuse Patient Records regulations: The Federal rules restrict any use of the information to criminally investigate or prosecute any alcohol or drug abuse patient.[facility] HospitalIn the event this information is protected by the Federal Confidentiality of Alcohol and Drug Abuse Patient Records regulations: The Federal rules restrict any use of the information to criminally investigate or prosecute any alcohol or drug abuse patient.[facility] HospitalIn the event this information is protected by the Federal Confidentiality of Alcohol and Drug Abuse Patient Records regulations: The Federal rules restrict any use of the information to criminally investigate or prosecute any alcohol or drug abuse patient.[facility] Reason for Visit (unrecogniz ed section and content) Reason Comments Refill Request Care Teams (unrecognized sec tion and content) Oxygen Furnace Operator Relationship Specialty Start Date End Date Ella Flores DO [address] [place] [address] Referring Family Practice 03/07/21 Ella Flores DO [address] [place] [address] Home Care Physician Family Practice 03/07/21 Oxygen Furnace Operator Relationship Specialty Start Date End Date Ella Flores DO [address] [place] [address] Referring Family Practice 03/07/21 Ella Flores DO [address] [place] [address] Home Care Physician Family Practice 03/07/21 Oxygen Furnace Operator Relationship Specialty Start Date End Date Ella Flores, DO [address] [place] [address] Referring Family Medicine 03/07/21 Ella Flores DO [address] [place] [address] Home Care Provider Family Medicine 03/07/21 FOR RECORDS PERTAINING TO PATIENTS WHO ARE OR HAVE BEEN ENROLLED IN A CHEMICAL DEPENDENCY/SUBSTANCEABUSE PROGRAM, SOME INFORMATION MAY BE OMITTED. This clinical summary was aggregated from multiple sources. Caution should be exercised in using it in the provision of clinical care. This summary normalizes information from multiple sources, and as a consequence, information in this document may materially change the coding, format and clinical context of patient data. In addition, data may be omitted in some cases. CLINICAL DECISIONS SHOULD BE BASED ON THE PRIMARY CLINICAL RECORDS. [facility] [employer] [facility]. provides no warranty or guarantee of the accuracy or completeness of information in this document.
--- NOTE | 2025-02-01 01:32 | HP.PCM_ITS ---
HPI - General General Date of Admission: 02/01/25 Date of Service: 02/01/25 Chief Complaint: Chest pain HPI Narrative DANE MARTINEZ, is a 84 M who presents to the emergency room with chief complaint of chest pain. Onset of symptoms began about 4 to 4-1/2 hours prior to his arrival where he resides in a halfway and states he was eating dinner. Pain started as a chest heaviness and described as inferior retrosternal without radiation to the back jaw and neck or arms. Patient denies any shortness of breath, nausea, diaphoresis or other focal neurologic symptoms. Patient received aspirin and nitroglycerin from EMS and at that time rated his pain 3/10. Subsequent to his arrival the pain is now resolved. EKG showed non-STEMI according to cardiology and ER physician. Blood work reveals white blood cell count of 7.5, hemoglobin 14.4, hematocrit 43.4, platelets 173, sodium 132, potassium 4.5, chloride 96, bicarb 23.4, BUN 9, creatinine 0.8, INR 1.0, troponin 145, chest x-ray for inspiratory effort. ER physician consulted cardiology who plan to do heart catheterization on this patient in the morning. Patient will be admitted to PCU pending heart catheterization. Patient is full code as verified in discussion with patient. [facility] Medical History (Updated 02/01/25 @ 01:[address] Zoltan Bateman MD) Personal history of COVID-19 Benign prostatic hyperplasia with lower urinary tract symptoms Bilateral inguinal hernia without obstruction or gangrene Essential (primary) hypertension Anemia, unspecified Repeated falls Muscle weakness (generalized) Generalized anxiety disorder Major depressive disorder, recurrent, unspecified Dementia in other diseases classified elsewhere, mild, with anxiety Abnormal weight loss Other specified hearing loss, unspecified ear Legal blindness, as defined in [place] Exudative age-related macular degeneration, right eye, stage unspecified Insomnia, unspecified Hypo-osmolality and hyponatremia Vitamin B12 deficiency anemia, unspecified Iron deficiency anemia, unspecified Difficulty in walking, not elsewhere classified 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 (current) drug therapy Encounter for screening for depression Dysphagia, oropharyngeal phase Unspecified dementia, moderate, with agitation Home Medications ?Medication ?Instructions ?Recorded ?Last Taken ?Type acetaminophen 500 mg tablet 500 mg PO Q6H PRN fever or pain 02/01/25 Unknown History (Acetaminophen Extra Strength) bisacodyl 10 mg rectal suppository 10 mg OR DAILY PRN constipation 02/01/25 Unknown History (Dulcolax (bisacodyl)) cholecalciferol (vitamin D3) 50 50 mcg PO DAILY Unknown History mcg (2,000 unit) capsule cyanocobalamin (vitamin B-12) 500 500 mcg PO DAILY 02/17 Unknown History mcg tablet lidocaine HCl 4 % topical pads 1 pad topical DAILY PRN PRN pain 02/01/25 Unknown History magnesium hydroxide 400 mg/5 mL 30 ml PO DAILY PRN con stipation 02/01/25 Unknown History oral suspension (Milk of Magnesia) potassium chloride 10 mEq 10 meq PO DAILY 02/01/25 Unk nown History tablet,extended release sertraline 25 mg tablet 25 mg PO QHS 02/01/25 Unknow n History sertraline 50 mg tablet 50 mg PO DAILY 02/01/25 Unkn own History tamsulosin 0.4 mg capsule 0.8 mg PO QHS 02/01/25 Unkno wn History Allergy/AdvReac Type Severity Reaction Status Date / Time No Known Allergies Allergy Verified 02/01/25 00:12 Social History (Updated 02/01/25 @ 00:[address] Anthony Pozo MD) housing: halfway Smoking Status: Never smoker additional social history: ambulates w/ walker ROS Constitutional Constitutional: Denies chills or fever(s) Eyes Eyes: Denies blurry vision ENT HEENT: Denies abnormal hearing Cardiovascular Cardiovascular: Reports chest pain Respiratory/Chest Respiratory/Chest: Denies cough Gastrointestinal Gastrointestinal: Denies abdominal pain Genitourinary Genitourinary: Denies dysuria Musculoskeletal Musculoskeletal: Denies back pain Integumentary Integumentary: Denies dry skin Neurologic Neurologic: Denies abnormal speech Psychiatric Psychiatric: Denies anxiety Vital Signs Vital Signs Vital Signs: 02/01/25 00:12 02/01/25 00:16 02/01/25 00:21 Temperature 97.1 F L Temperature Source Axillary Pulse Rate 73 Respiratory Rate 18 Respiratory Effort Normal Non-Labored Blood Pressure 167/94 H Blood Pressure Mean 118 Pulse Ox 97 98 Oxygen Delivery Method Room Air Room Air 02/01/25 00:27 Temperature Temperature Source Pulse Rate 65 Respiratory Rate Respiratory Effort Blood Pressure 165/94 H Blood Pressure Mean Pulse Ox Oxygen Delivery Method Weight Weight: 116 lb 9.992 oz Body Mass Index (BMI) 18.8 Physical Exam Const alert and no apparent distress General Appearance: cooperative and well developed HEENT normocephalic and head/scalp atraumatic Eyes PERRL Neck no lymphadenopathy Lymph Lymphatic: no lymphadenopathy noted Resp normal respiratory effort, normal air movement and clear to auscultation bilaterally Cardio regular rate, regular rhythm, S1 normal heart sound and S2 normal heart sound GI normal to inspection, nondistended, normoactive bowel sounds Extremity normal capillary refill General Extremity: Negative for edema Skin General Skin Exam: no breakdown Neuro no focal motor deficits and no sensory deficits noted Psych cooperative and affect normal Results Lab / Micro Data 02/01/25 00:17 02/01/25 00:17 Labs: Laboratory Results - last 24 hr 02/01/25 00:17: WBC 7.5, RBC 4.75, Hgb 14.4, Hct 43.4, MCV 91.4, MCH 30.3, MCHC 33.2, RDW Std Deviation 48.5 H, RDW Coeff of Tez 14.4, Plt Count 173, MPV 9.6, Immature Gran % (Auto) 0.800, Neut % (Auto) 79.6 H, Lymph % (Auto) 9.4 L, Harney % (Auto) 8.8, Eos % (Auto) 0.9, Baso % (Auto) 0.5, Absolute Neuts (auto) 5.9, A bsolute Lymphs (auto) 0.70 L, Nucleated RBC % 0, PT 13.5, INR 1.0, APTT 35.6, S odium 132 L, Potassium 4.5, Chloride 96 L, Carbon Dioxide 23.4, Anion Gap 12, BUN 9, Creatinine 0.80, Estim Creat Clear Calc 51.43, Est GFR (MDRD) Non-Af 87, BUN/Creatinine Ratio 11.3, Glucose 136 H, Calcium 9.4, Troponin T High Sens 145 H* Rhythm Strip Rhythm Strip: Sinus Rhythm Rate: 65 Ectopy: None Imaging Radiology Impression Chest X-Ray 02/01/25 00:30 IMPRESSION: As above. Reading Location: [facility] Assessment & Plan Assessment/Plan (1) Non-ST elevation [place] (NSTEMI): (2) Major depressive disorder, recurrent, unspecified: (3) Legal blindness, as defined in [place]: (4) Essential (primary) hypertension: PLAN: Plan 1 non-ST elevation TX?admit patient to progressive care unit, consult cardiology for heart catheterization in the morning, make patient n.p.o. pending heart catheterization, will add nitroglycerin, oxygen as needed for chest pain at this time patient is chest pain-free 2. History of depression?continue routine home medications when the patient is able to take p.o. medication 3. CODE STATUS?full code verified in discussion with patient 4. DVT prophylaxis?patient will be on heparin drip already for NSTEMI Charges/Coding Visit Charges Inpatient E&M: 97024 Init Hosp L2
--- OUTSIDE RECORDS SUMMARY | 2025-02-01 01:54 | XMS RPT_ITS | CCD ---
Author Organization [facility] Care Team Providers Care Data Mining Analyst Name Role Phone Sheets Ella LAZO Unavailable [phone] Sheets Ella LAZO Unavailable [phone] AVA NORRIS Referring Unavailable TORRES ERWIN Primary [...] Active Start: 07-11-2016 take 2 tablets by [facility] every six hours as needed acetaminophen (TYLENOL) 325 mg tablet Take 2 tablets by mouth every 6 hours as needed for Pain. 0 07/11/2016 Active Comment on above: Take 2 tablets by [facility] every 6 hours as needed for [...] Comment on above: Take 1 tablet by [facility] twice daily with meals. lisinopril 20 [...] th daily at bedtime. polyethylene glycol 3350 70893 mg powder for oral solution (3 sources) [...] [Compression fracture of T12 vertebra, initial encounter ([facility])] Onset: 04-23-2022 Episodic Other nervous system disorders [...] DATE OF EXAM: May 07 2022 11:49PM [facility] 0504 - CT BRAIN WO IVCON / PROCEDURE REASON: Head trauma, moderate-severe * * * * Physician Interpretation * * * * EXAMINATION: CT CERVICAL SPINE WO IVCON, CT BRAIN WO IVCON, CT FACIAL BONE/CESILIA WO IVCON CLINICAL HISTORY: Spine fracture, cervical, traumatic (accession [id number]), Head trauma, moderate-severe (accession [id number]), Maxillofacial pain (accession [id number]) TECHNIQUE: Serial axial unenhanced images were obtained from the vertex to the foramen magnum. Spiral, high resolution axial unenhanced images were obtained from the skull base to the cervicothoracic junction with sagittal and coronal planar reconstructions. Spiral high resolution axial unenhanced images were also obtained through the facial bones with sagittal and coronal planar reconstructions. Dose-Length Product (DLP): 133.37 (accession [id number]), 993.15 (accession [id number]), 454.02 (accession [id number]) mGy*cm. CT Dose Reduction Employed: No dose [...] acute cervical abnormality. Degenerative changes described above. Director Cpg: AMANDA Transcribe Date/Time: May 08 2022 12:52A Dictated by : BRIANNE LEÓN MD This examination was interpreted and the report reviewed and electronically signed by: BRIANNE LEÓN MD on May 08 2022 1:04AM EST [id number] Normal [facility] CT CERVICAL SPINE WO IVCONon 05-08-2022 CT CERVICAL SPINE WO IVCON * * *Final Report* * * DATE OF EXAM: May 07 2022 11:49PM [facility] 0505 - CT CERVICAL SPINE WO IVCON / PROCEDURE REASON: Spine fracture, cervical, traumatic * * * * Physician Interpretation * * * * EXAMINATION: CT CERVICAL SPINE WO IVCON, CT BRAIN WO IVCON, CT FACIAL BONE/CESILIA WO IVCON CLINICAL HISTORY: Spine fracture, cervical, traumatic (accession [id number]), Head trauma, moderate-severe (accession [id number]), Maxillofacial pain (accession [id number]) TECHNIQUE: Serial axial unenhanced images were obtained from the vertex to the foramen magnum. Spiral, high resolution axial unenhanced images were obtained from the skull base to the cervicothoracic junction with sagittal and coronal planar reconstructions. Spiral high resolution axial unenhanced images were also obtained through the facial bones with sagittal and coronal planar reconstructions. Dose-Length Product (DLP): 133.37 (accession [id number]), 993.15 (accession [id number]), 454.02 (accession [id number]) mGy*cm. CT Dose Reduction Employed: No dose [...] acute cervical abnormality. Degenerative changes described above. Director Cpg: PSCB Transcribe Date/Time: May 08 2022 12:52A Dictated by : BRIANNE LEÓN MD This examination was interpreted and the report reviewed and electronically signed by: BRIANNE LEÓN MD on May 08 2022 1:04AM EST [id number] Normal [facility] CT FACIAL BONE/CESILIA WO IVCON on 05-08-2022 CT FACIAL BONE/CESILIA WO IVCON * * *Final Report* * * DATE OF EXAM: May 07 2022 11:49PM [facility] 0507 - CT FACIAL BONE/CESILIA WO IVCON / PROCEDURE REASON: Maxillofacial pain * * * * Physician Interpretation * * * * EXAMINATION: CT CERVICAL SPINE WO IVCON, CT BRAIN WO IVCON, CT FACIAL BONE/CESILIA WO IVCON CLINICAL HISTORY: Spine fracture, cervical, traumatic (accession [id number]), Head trauma, moderate-severe (accession [id number]), Maxillofacial pain (accession [id number]) TECHNIQUE: Serial axial unenhanced images were obtained from the vertex to the foramen magnum. Spiral, high resolution axial unenhanced images were obtained from the skull base to the cervicothoracic junction with sagittal and coronal planar reconstructions. Spiral high resolution axial unenhanced images were also obtained through the facial bones with sagittal and coronal planar reconstructions. Dose-Length Product (DLP): 133.37 (accession [id number]), 993.15 (accession [id number]), 454.02 (accession [id number]) mGy*cm. CT Dose Reduction Employed: No dose [...] acute cervical abnormality. Degenerative changes described above. Director Cpg: AMANDA Transcribe Date/Time: May 08 2022 12:52A Dictated by : BRIANNE LEÓN MD This examination was interpreted and the report reviewed and electronically signed by: BRIANNE LEÓN MD on May 08 2022 1:04AM EST [id number] Normal [facility] ED NOTEon 05-08-2022 ED NOTE HNO ID: [id number] Author: Sujey Iqbal RN Service: Emergency Medicine Author Type: Registered Nurse Type: ED Notes Filed: 05/08/2022 1:51 AM Note Text: Report to Corinne at [facility] ED NOTE HNO ID: [id number] Author: Sujey Iqbal RN Service: Emergency Medicine Author Type: Registered Nurse Type: ED Notes Filed: 05/08/2022 1:42 AM Note Text: Pressure dressing applied to top of head and dressing applied to nose. Bacitracin applied to abrasions on face. [facility] ED NOTE HNO ID: [id number] Author: Sujey Iqbal RN Service: Emergency Medicine Author Type: Registered Nurse Type: ED Notes Filed: 05/08/2022 1:13 AM Note Text: [facility] ETA 30 min [facility] ED NOTE HNO ID: [id number] Author: Charleen Goldstein RN Service: Nursing Author Type: Registered Nurse Type: ED Notes Filed: 05/07/2022 10:11 PM Note Text: Pt brought in by EMS for fall at [facility]. Pt was asked how he fell and he states I got too close to the floor It was reported that pt was sitting on bed and went to reach for something then fell, possibly into his dresser. Pt arrives in c-collar with large bandages on head with blood noted. Pt AANDOx4 with complaints of minimal pain in back. [facility] ED PROV NOTEon 05-08-2022 ED PROV NOTE HNO ID: [id number] Author: Edward Hardin MD Service: Emergency Medicine [...] procedure: Tolerate (more content not included)... Normal [facility] CASE MANAGEMon 04-23-2022 CASE MANAGEM HNO ID: [id number] Author: Gabi Erwin RN Service: ? Author Type: Registered Nurse Type: Care Mgt Progress Note Filed: 04/23/2022 2:11 PM Note Text: CARE MANAGEMENT DISCHARGE NOTE SERVICE DATE: 04/23/2022 SERVICE TIME: 2:09 PM LOS: 4 days Admission Date: 04/17/2022 DISCHARGE ARRANGEMENT (list agency and phone number) Discharge Arrangement: [facility] Was an expedited discharge program used?: [...] Arrangements: Ambulance Transportation Agency and Phone #:: [facility] [phone] Date of Trip: 04/23/22 Time of Trip: 1430 Type of Service: BLS Non-emergency Is Patient Medicaid Pending?: No Was transportation financial coverage discussed with family?: Patient;Family Credit Control Manager Location: [place] Destination: [facility] Financial Care Management Responsibility: None ADDITIONAL CONTACT RESOURCES: Irena Molina ([facility]) [phone] (M) Patient/family aware of dc order placed for today. Patient will dc to [facility]. MMT set for 2:30pm. SNF updated with time and orders. RN provided number to call report. CM called and spoke with Irena to notify of DC plan. SIGNATURE: Gabi Erwin RN PATIENT NAME: Dane Cueva Michelle DATE: April 23, 2022 TIME: 2:09 PM PAGER/CONTACT #: [phone] Normal [facility] CASE MANAGEM HNO ID: [id number] Author: Gabi Eriwn RN Service: ? Author Type: Registered Nurse Type: Care Mgt Progress Note Filed: 04/23/2022 10:45 AM Note Text: CARE MANAGEMENT PROGRESS NOTE SERVICE DATE: 04/23/2022 SERVICE TIME: 10:43 AM LOS: 4 days IMM Follow Up Copy Given: Yes Copy given to:: Patient Method: In Person SIGNATURE: Gabi Erwin RN PATIENT NAME: Dane Cueva [facility] DATE: April 23, 2022 TIME: 10:43 AM PAGER/CONTACT #: [phone] [facility] CBC panel Auto (Bld)on 04-23 Erythrocyte distribution width (RBC) [Ratio] 14.2 % Normal 11.5-15.0 [facility] Comment on above: Order Comment: Speci men Type: BLOOD SPECIMENOrdering Facility: [facility] Address: [address] [place] [address] Performed By: #### 5 8410-2 ####[facility]ORY[facility]IA [id number] [address] Hematocrit (Bld) [Volume fraction] 39.0 % Normal 39.0-51.0 [facility] Comment on above: Order Comment: Speci men Type: BLOOD SPECIMENOrdering Facility: [facility] Address: [address] [place] [address] Performed By: #### 5 8410-2 ####[facility]ORYCLIA [id number] [address] [place] Hemoglobin (Bld) [Mass/Vol] 13.6 g/dL Normal 13.0-17.0 [facility] Comment on above: Order Comment: Speci men Type: BLOOD SPECIMENOrdering Facility: [facility] Address: [address] [place] [address] Performed By: #### 5 8410-2 ####[facility]ATORYCLIA [id number] [address] MCH (RBC) [Entitic mass] 31.4 pg Normal 26.0-34.0 [facility] Comment on above: Order Comment: Speci men Type: BLOOD SPECIMENOrdering Facility: [facility] Address: [address] [place] [address] Performed By: #### 5 8410-2 ####[facility]ATORYCLIA [id number] [address] MCHC (RBC) [Mass/Vol] 34.9 g/dL Normal 30.5-36.0 [facility] Comment on above: Order Comment: Speci men Type: BLOOD SPECIMENOrdering Facility: [facility] Address: [address] [place] [address] Performed By: #### 5 8410-2 ####[facility]ATORYCLIA [id number] [address] MCV (RBC) [Entitic vol] 90.1 fL Normal 80.0-100.0 [facility] Comment on above: Order Comment: Speci men Type: BLOOD SPECIMENOrdering Facility: [facility] Address: [address] [place] [address] Performed By: #### 5 8410-2 ####[facility]ATORYCLIA [id number] [address] Nucleated RBC (Bld) [#/Vol] 10*3/uL Normal <0.01 [facility] Comment on above: Order Comment: Speci men Type: BLOOD SPECIMENOrdering Facility: [facility] Address: [address] [place] [address] Performed By: #### 5 8410-2 ####[facility]ATORYCLIA [id number] [address] Platelet mean volume (Bld) [Entitic vol] 10.4 fL Normal 9.0-12.7 [facility] Comment on above: Order Comment: Speci men Type: BLOOD SPECIMENOrdering Facility: [facility] Address: [address] [place] [address] Performed By: #### 5 8410-2 ####[facility]ORYCLIA [id number] [address] Platelets (Bld) [#/Vol] 103 10*3/uL Low 150-400 [facility] Comment on above: Order Comment: Speci men Type: BLOOD SPECIMENOrdering Facility: [facility] Address: [address] [place] [address] Result Comment: No c lot detected Performed By: #### 5 8410-2 ####[facility]ORYCLIA [id number] [address] RBC (Bld) [#/Vol] 4.33 10*6/uL Normal 4.20-6.00 [facility] Comment on above: Order Comment: Speci men Type: BLOOD SPECIMENOrdering Facility: [facility] Address: [address] [place] [address] Performed By: #### 5 8410-2 ####[facility]ATORYCLIA [id number] [address] WBC (Bld) [#/Vol] 2.64 10*3/uL Low 3.70-11.00 [facility] Comment on above: Order Comment: Speci men Type: BLOOD SPECIMENOrdering Facility: [facility] Address: [place] [address] Performed By: #### 5 8410-2 ####[facility] LABORATORYCLIA [id number] [place] [address] [place] CNDSon 04-23-2022 CNDS HNO ID: [id number] Author: France Beck APRN.DIRECTOR OF MANAGED SERVICES Service: Hospital Medicine Author Type: Nurse Practitioner Type: Discharge Summary Filed: 04/23/2022 1:03 PM Note Text: Attestation signed by Jena Youngblood MD at 04/23/2022 5:14 PM Attending Note The patient was not seen or examined by the attending. I have personally reviewed the PA/BUNCH MAKER note. Agree with above assessment and plan. [...] Celina Lara MD Nurse Practitioner: France Beck APRN.DIRECTOR OF MANAGED SERVICES Nurse Practitioner: Codie Mojica APRN.APOLLO REASON FOR [...] solute diet. Discharged in stable condition to [facility]. Transitions of Care Critical Issues: - BMP in 3 days LABS AND PROCEDURES PENDING AT DISCHARGE: No pending results. PATIENT CONDITION AT DISCHARGE: Stable DISCHARGE DISPOSITION: [facility] Discharge Physical Exam: VITAL SIGNS: BP [...] for pain. Q (more content not included)... [facility] CONSULT PROGon 04-23-2022 CONSULT PROG HNO ID: [id number] Author: Celina Lara MD Service: Infectious Disease [...] reviewed Imaging data: reviewed Celina Lara MD [phone] 04/23/2022 12:36 PM Normal [facility] Comprehensive metabolic 2000 panelon 04-23-2022 Albumin [Mass/Vol] 3.5 g/dL Low 3.9-4.9 [facility] Comment on above: Order Comment: Speci grant Type: BLOOD SPECIMEN Ordering Facility: [facility] Address: [address] [place] [address] Performed By: #### 4 8065-7 #### [facility] CLIA [id number] [address] ALP [Catalytic activity/Vol] 92 U/L Normal 38-113 [facility] Comment on above: Order Comment: Speci men Type: BLOOD SPECIMEN Ordering Facility: [facility] Address: [address] [address] Performed By: #### 4 8065-7 #### [facility] CLIA [id number] [address] ALT [Catalytic activity/Vol] 17 U/L Normal 10-54 [facility] Comment on above: Order Comment: Speci men Type: BLOOD SPECIMEN Ordering Facility: [facility] Address: [address] [address] Performed By: #### 4 8065-7 #### [facility] CLIA [id number] [address] STATES OF [facility] Anion gap [Moles/Vol] 8 mmol/L Low 9-18 [facility] Comment on above: Order Comment: Speci men Type: BLOOD SPECIMEN Ordering Facility: [facility] Address: [address] [address] Performed By: #### 4 8065-7 #### [facility] CLIA [id number] [address] [place] [address] [place] AST [Catalytic activity/Vol] 32 U/L Normal 14-40 [facility] Comment on above: Order Comment: Speci men Type: BLOOD SPECIMEN Ordering Facility: [facility] Address: [address] [place] [address] Performed By: #### 4 8065-7 #### [facility] CLIA [id number] [address] [place] [address] [place] Bilirubin [Mass/Vol] 0.5 mg/dL Normal 0.2-1.3 [facility] Comment on above: Order Comment: Speci men Type: BLOOD SPECIMEN Ordering Facility: [facility] Address: [address] [place] [address] Performed By: #### 4 8065-7 #### [facility] CLIA [id number] [address] STATES [place] Calcium [Mass/Vol] 8.4 mg/dL Low 8.5-10.2 [facility] Comment on above: Order Comment: Speci men Type: BLOOD SPECIMEN Ordering Facility: [facility] Address: [address] [address] Performed By: #### 4 8065-7 #### [facility] CLIA [id number] [address] [place] [address] [place] Chloride [Moles/Vol] 94 mmol/L Low 97-105 [facility] Comment on above: Order Comment: Speci men Type: BLOOD SPECIMEN Ordering Facility: [facility] Address: [address] [address] Performed By: #### 4 8065-7 #### [facility] CLIA [id number] [address] CO2 [Moles/Vol] 27 mmol/L Normal 22-30 [facility] Comment on above: Order Comment: Speci men Type: BLOOD SPECIMEN Ordering Facility: [facility] Address: [address] [place] [address] Performed By: #### 4 8065-7 #### [facility] CLIA [id number] [address] Creatinine [Mass/Vol] 0.71 mg/dL Low 0.73-1.22 [facility] Comment on above: Order Comment: Speci men Type: BLOOD SPECIMEN Ordering Facility: [facility] Address: [address] [place] [address] Performed By: #### 4 8065-7 #### [facility] CLIA [id number] [address] ESTIMATED GLOMERULAR FILTRATION RATE 92 mL/min/1.73m??? Normal >=60 [facility] Comment on above: Order Comment: Harvey men Type: BLOOD SPECIMEN Ordering Facility: [facility] Address: [address] [place] [address] Result Comment: Silvia mated Glomerular Filtration Rate [...] #### 4 8065-7 #### [facility] CLIA [id number] [address] Glucose [Mass/Vol] 85 mg/dL Normal 74-99 [facility] Comment on above: Order Comment: Speci men Type: BLOOD SPECIMEN Ordering Facility: [facility] Address: [address] [place] [address] Result Comment: The [place] Diabetes Association (ADA) provides guidance for cutoff [...] Standards of Medical Care in Diabetes 2016, [place] [employer]. Diabetes Care. 2016.39(Suppl 1). Performed By: #### 4 8065-7 #### [facility] CLIA [id number] [address] STATES OF [facility] Potassium [Moles/Vol] 4.2 mmol/L Normal 3.7-5.1 [facility] Comment on above: Order Comment: Harvey burns Type: BLOOD SPECIMEN Ordering Facility: [facility] Address: [address] [address] Performed By: #### 4 8065-7 #### [facility] CLIA [id number] [address] [place] [address] [place] Protein [Mass/Vol] 6.4 g/dL Normal 6.3-8.0 [facility] Comment on above: Order Comment: Harvey burns Type: BLOOD SPECIMEN Ordering Facility: [facility] Address: [address] [address] Performed By: #### 4 8065-7 #### [facility] CLIA [id number] [address] [place] [address] [place] Sodium [Moles/Vol] 129 mmol/L Low 136-144 [facility] Comment on above: Order Comment: Harvey burns Type: BLOOD SPECIMEN Ordering Facility: [facility] Address: [address] [address] Performed By: #### 4 8065-7 #### [facility] CLIA [id number] [address] [place] [address] [place] Urea nitrogen [Mass/Vol] 10 mg/dL Normal 9-24 [facility] Comment on above: Order Comment: Speci men Type: BLOOD SPECIMEN Ordering Facility: [facility] Address: [address] [place] [address] Performed By: #### 4 8065-7 #### [facility] CLIA [id number] [address] STATES [place] Magnesium SerPl-mCncon 04-23 Magnesium [Mass/Vol] 2.0 mg/dL Normal 1.7-2.3 [facility] Comment on above: Order Comment: Speci men Type: BLOOD SPECIMEN Ordering Facility: [facility] Address: [address] [place] [address] Performed By: #### 4 8065-7 #### [facility] CLIA [id number] [address] STATES [place] NURSING PROGon 04-23-2022 NURSING PROG HNO ID: [id number] Author: Lola Vences RN Service: Nursing Author Type: Registered Nurse Type: Nursing Progress Note Filed: 04/23/2022 3:32 PM Note Text: Other: 1532: Discharge instructions reviewed with [facility]. No further questions voiced. Phone number provided to nurse if questions arise. Awaiting transport for discharge which was scheduled for 1430. Normal [facility] Osmolality Uron 04-23-2022 Osmolality (U) [Osmolality] 311 mosm/kg Normal 50-1200 [facility] Comment on above: Order Comment: Speci men Type: URINE SPECIMENOrdering Facility: [facility] Address: [address] [place] [address] Performed By: #### 3 5678-2, 2695-5 ####[facility] LAB[facility]IA [id number] [facility] [id number] [address] [place] Sodium ?Tm Ur-sCncon 022 Sodium Unsp time (U) [Moles/Vol] 73 mmol/L Normal 14-216 [facility] Comment on above: Order Comment: Speci men Type: URINE SPECIMENOrdering Facility: [facility] Address: [address] [place] [address] Performed By: #### 3 5678-2, 2695-5 ####[facility] LABCLIA [id number] [facility] [id number] [place] CASE MANAGEMon 04-22-2022 CASE MANAGEM HNO ID: [id number] Author: Gabi Erwin RN Service: ? Author Type: Registered Nurse Type: Care Mgt Progress Note Filed: 04/22/2022 1:11 PM Note Text: CARE MANAGEMENT PROGRESS NOTE SERVICE DATE: 04/22/2022 SERVICE TIME: 9:58 AM LOS: 3 days Needs Prior to Discharge: Insurance Authorization;OT/PT Evaluation;Accepting Facility;Discharge Transportation;Other: See Comment (medical clearance) Patient/Niece requesting [facility] as FOC. [facility] waiting to review pending PT eval. CM notified therapy, updated notes will be needed for precert. 1:00pm- [facility] accept[facility] SIGNATURE: Gabi Erwin RN PATIENT NAME: Dane Martinez DATE: April 22, 2022 TIME: 9:57 AM PAGER/CONTACT #: [phone] Normal [facility] CBC panel Auto (Bld)on 04-22 Erythrocyte distribution width (RBC) [Ratio] 14.3 % Normal 11.5-15.0 [facility] Comment on above: Order Comment: Harvey burns Type: BLOOD SPECIMENOrdering Facility: [facility] Address: [address] [place] [address] Performed By: #### 5 8410-2 ####[facility]CLIA [id number] [address] STATES [place] Hematocrit (Bld) [Volume fraction] 38.5 % Low 39.0-51.0 [facility] Comment on above: Order Comment: Harvey burns Type: BLOOD SPECIMENOrdering Facility: [facility] Address: [address] [place] [address] Performed By: #### 5 8410-2 ####[facility]ATORYCLIA [id number] [place] [address] [place] Hemoglobin (Bld) [Mass/Vol] 13.1 g/dL Normal 13.0-17.0 [facility] Comment on above: Order Comment: Speci men Type: BLOOD SPECIMENOrdering Facility: [facility] Address: [address] [place] [address] Performed By: #### 5 8410-2 ####[facility]ORYCLIA [id number] [address] STATES [facility] MCH (RBC) [Entitic mass] 31.2 pg Normal 26.0-34.0 [facility] Comment on above: Order Comment: Speci men Type: BLOOD SPECIMENOrdering Facility: [facility] Address: [address] [address] Performed By: #### 5 8410-2 ####[facility]ORYCLIA [id number] [address] [place] MCHC (RBC) [Mass/Vol] 34.0 g/dL Normal 30.5-36.0 [facility] Comment on above: Order Comment: Speci men Type: BLOOD SPECIMENOrdering Facility: [facility] Address: [address] [place] [address] Performed By: #### 5 8410-2 ####[facility]ATORYCLIA [id number] [address] STATES [facility] MCV (RBC) [Entitic vol] 91.7 fL Normal 80.0-100.0 [facility] Comment on above: Order Comment: Speci men Type: BLOOD SPECIMENOrdering Facility: [facility] Address: [address] [address] Performed By: #### 5 8410-2 ####[facility] LABORATORYCLIA [id number] [address] Nucleated RBC (Bld) [#/Vol] 10*3/uL Normal <0.01 [facility] Comment on above: Order Comment: Speci men Type: BLOOD SPECIMENOrdering Facility: [facility] Address: [address] [place] [address] Performed By: #### 5 8410-2 ####[facility] LABORATORYCLIA [id number] [address] Platelet mean volume (Bld) [Entitic vol] 10.5 fL Normal 9.0-12.7 [facility] Comment on above: Order Comment: Speci men Type: BLOOD SPECIMENOrdering Facility: [facility] Address: [address] [place] [address] Performed By: #### 5 8410-2 ####[facility] LABORATORYCLIA [id number] [address] [place] Platelets (Bld) [#/Vol] 111 10*3/uL Low 150-400 [facility] Comment on above: Order Comment: Speci men Type: BLOOD SPECIMENOrdering Facility: [facility] Address: [address] [place] [address] Result Comment: No c lot detected Performed By: #### 5 8410-2 ####[facility]ORATORYCLIA [id number] [address] RBC (Bld) [#/Vol] 4.20 10*6/uL Normal 4.20-6.00 [facility] Comment on above: Order Comment: Speci men Type: BLOOD SPECIMENOrdering Facility: [facility] Address: [address] [place] [address] Performed By: #### 5 8410-2 ####[facility] LABORATORYCLIA [id number] [address] WBC (Bld) [#/Vol] 2.98 10*3/uL Low 3.70-11.00 [facility] Comment on above: Order Comment: Speci men Type: BLOOD SPECIMENOrdering Facility: [facility] Address: [address] [place] [address] Performed By: #### 5 8410-2 ####[facility] LABORATORYCLIA [id number] [address] CONSULT PROGon 04-22-2022 CONSULT PROG HNO ID: [id number] Author: Celina Lara MD Service: Infectious Disease [...] data: reviewed Imaging data: reviewed Cesia Conley, FIELD FOREMAN-[employer]OLLO [facility] [phone] April 22, 2022 9:07 AM I personally saw and evaluated the patient. I reviewed the PLC TECHNICIAN Hx, exam and MDM and I agree with the PLC TECHNICIAN assessment and plan unless otherwise addended above. Celina Lara MD [phone] 04/22/2022 12:36 PM Normal [facility] Comprehensive metabolic 2000 panelon 04-22-2022 Albumin [Mass/Vol] 3.2 g/dL Low 3.9-4.9 [facility] Comment on above: Order Comment: Harvey burns Type: BLOOD SPECIMEN [facility] Address: [address] [id number] Performed By: #### 2 4323-8, 93234-7 #### [facility] CLIA [id number] [address] [place] [address] [place] ALP [Catalytic activity/Vol] 88 U/L Normal 38-113 [facility] Comment on above: Order Comment: Harvey burns Type: BLOOD SPECIMEN [facility]ing [facility]: [facility] Address: [address] [place], [place] [phone] Performed By: #### 2 432-8, 35360-8 #### [facility] CLIA [id number] [address] [place] [address] [place] ALT [Catalytic activity/Vol] 12 U/L Normal 10-54 [facility] Comment on above: Order Comment: Speci men Type: BLOOD SPECIMEN [facility]ing [facility]: [facility] Address: [address] [place] [address] Performed By: #### 2 8, #### [facility] CLIA [id number] [address] [place] [address] [place] Anion gap [Moles/Vol] 11 mmol/L Normal 9-18 [facility] Comment on above: Order Comment: Speci men Type: BLOOD SPECIMEN [facility]: [facility] Address: [address] [address] Performed By: #### 2 8, #### [facility] CLIA [id number] [address] [place] AST [Catalytic activity/Vol] 25 U/L Normal 14-40 [facility] Comment on above: Order Comment: Speci men Type: BLOOD SPECIMEN [facility]: [facility] Address: [address] [address] Performed By: #### 2 8, #### [facility] CLIA [id number] [address] [place] [address] [place] Bilirubin [Mass/Vol] 0.4 mg/dL Normal 0.2-1.3 [facility] Comment on above: Order Comment: Speci men Type: BLOOD SPECIMEN [facility] Address: [address] [address] Performed By: #### 2 4328, #### [facility] CLIA [id number] [address] [place] Calcium [Mass/Vol] 8.0 mg/dL Low 8.5-10.2 [facility] Comment on above: Order Comment: Speci men Type: BLOOD SPECIMEN [facility] Address: [address] [address] Performed By: #### 2 4323-8, #### [facility] CLIA [id number] [address] Chloride [Moles/Vol] 93 mmol/L Low 97-105 [facility] Comment on above: Order Comment: Speci men Type: BLOOD SPECIMEN [facility]: [facility] Address: [address] [place] [address] Performed By: #### 2 4323-8, #### [facility] CLIA [id number] [address] CO2 [Moles/Vol] 23 mmol/L Normal 22-30 [facility] Comment on above: Order Comment: Truei grant Type: BLOOD SPECIMEN [facility]: [facility] Address: [address] [place] [address] Performed By: #### 2 4323-8, #### [facility] CLIA [id number] [address] OF [facility] Creatinine [Mass/Vol] 0.62 mg/dL Low 0.73-1.22 [facility] Comment on above: Order Comment: Truei men Type: BLOOD SPECIMEN [facility]ing [facility]: [facility] Address: [address] [place] [address] Performed By: #### 2 4323-8, #### [facility] CLIA [id number] [address] ESTIMATED GLOMERULAR FILTRATION RATE 96 mL/min/1.73m??? Normal >=60 [facility] Comment on above: Order Comment: Speci men Type: BLOOD SPECIMEN [facility]ing [facility]: [facility] Address: [address] [place] [address] Result Comment: Silvia mated Glomerular Filtration Rate [...] GFR. Performed By: #### 2 4323-8, #### [facility] CLIA [id number] [address] [place] [address] [place] Glucose [Mass/Vol] 76 mg/dL Normal 74-99 [facility] Comment on above: Order Comment: Harvey burns Type: BLOOD SPECIMEN [facility]ing [facility]: [facility] Address: [address] [place] [address] Result Comment: The [place] Diabetes Association (ADA) provides guidance for cutoff [...] Standards of Medical Care in Diabetes 2016, [place] [employer]. Diabetes Care. 2016.39(Suppl 1). Performed By: #### 2 4323-8, #### [facility] CLIA [id number] [address] [place] [address] [place] Potassium [Moles/Vol] 4.3 mmol/L Normal 3.7-5.1 [facility] Comment on above: Order Comment: Harvey burns Type: BLOOD SPECIMEN [facility] Address: [address] [address] Performed By: #### 2 4323-8, #### [facility] CLIA [id number] [address] [place] [address] [place] Protein [Mass/Vol] 6.0 g/dL Low 6.3-8.0 [facility] Comment on above: Order Comment: Harvey burns Type: BLOOD SPECIMEN [facility]: [facility] Address: [address] [place] [address] Performed By: #### 2 4323-8, #### [facility] CLIA [id number] [address] [place] [address] [place] Sodium [Moles/Vol] 127 mmol/L Low 136-144 [facility] Comment on above: Order Comment: Speci men Type: BLOOD SPECIMEN [facility]: [facility] Address: [address] [place] [address] Performed By: #### 2 4323-8, #### [facility] CLIA [id number] [address] [place] [address] [place] Urea nitrogen [Mass/Vol] 11 mg/dL Normal 9-24 [facility] Comment on above: Order Comment: Speci men Type: BLOOD SPECIMEN [facility]: [facility] Address: [address] [place] [address] Performed By: #### 2 43238, #### [facility] CLIA [id number] [address] [place] [address] [place] Magnesium SerPl-mCncon 04-22 Magnesium [Mass/Vol] 1.7 mg/dL Normal 1.7-2.3 [facility] Comment on above: Order Comment: Speci men Type: BLOOD SPECIMEN [facility]: [facility] Address: [address] [place] [address] Performed By: #### 2 4323-8, #### [facility] CLIA [id number] [address] [place] [address] [place] Osmolality SerPlon Osmolality [Osmolality] 259 mosm/kg Low 275-300 [facility] Comment on above: Order Comment: Speci men Type: BLOOD SPECIMENOrdering Facility: [facility] Address: [address] [place] [address] Performed By: #### 2 692-2 ####[facility] LABCLIA [id number] [facility] [id number] [address] [place] THERAPY NTon 04-22-2022 THERAPY NT HNO ID: [id number] Author: Fidel Bowsher, OT/L Service: ? Author Type: Occupational Therapist Type: Therapy (PT/OT/Speech/Resp) Filed: 04/22/2022 12:10 PM Note Text: Occupational Therapy Treatment SERVICE DATE: 04/22/2022 SERVICE TIME: 1133 to 1200 ROOM: [id number] Recommended Discharge Disposition: Subacute/SNF Recommended Discharge Disposition [...] Precautions-Plus Eyewear Current Hospital Course: admitted to [facility] Reason for Hospital Admission: fall/ +COVID, [...] Current and/or Former Occupation: Worked at a [employer] Highest Level of Education: High School Occupational [...] Supine Minimal Assistance;Additional (more content not included)... [facility] THERAPY NT HNO ID: [id number] Author: Fide Yoon PT Service: ? Author Type: Physical Therapist Type: Therapy (PT/OT/Speech/Resp) Filed: 04/22/2022 11:46 AM Note Text: Physical Therapy Treatment SERVICE DATE: 04/22/2022 SERVICE TIME: 1058 to 1128 ROOM: [address] [place] [address] Recommended Discharge Disposition: Subacute/SNF Recommended Discharge Disposition [...] Precautions-Plus Eyewear Current Hospital Course: admitted to [facility] Reason for Hospital Admission: fall/ +COVID, [...] (more content not included)... Normal [facility] CBC panel Auto (Bld)on 04-21 Erythrocyte distribution width (RBC) [Ratio] 14.6 % Normal 11.5-15.0 [facility] Comment on above: Order Comment: Speci men Type: BLOOD SPECIMENOrdering Facility: [facility] Address: [address] [place] [address] Performed By: #### 5 8410-2 ####[facility] LABORATORYCLIA [id number] [address] Hematocrit (Bld) [Volume fraction] 36.7 % Low 39.0-51.0 [facility] Comment on above: Order Comment: Speci men Type: BLOOD SPECIMENOrdering Facility: [facility] Address: [address] [place] [address] Performed By: #### 5 8410-2 ####[facility] LABORATORYCLIA [id number] [address] [place] Hemoglobin (Bld) [Mass/Vol] 12.5 g/dL Low 13.0-17.0 [facility] Comment on above: Order Comment: Speci men Type: BLOOD SPECIMENOrdering Facility: [facility] Address: [address] [place] [address] Performed By: #### 5 8410-2 ####[facility] LABORATORYCLIA [id number] [address] STATES [facility] MCH (RBC) [Entitic mass] 31.8 pg Normal 26.0-34.0 [facility] Comment on above: Order Comment: Speci men Type: BLOOD SPECIMENOrdering Facility: [facility] Address: [address] [place] [address] Performed By: #### 5 8410-2 ####[facility] LABORATORYCLIA [id number] [address] [place] MCHC (RBC) [Mass/Vol] 34.1 g/dL Normal 30.5-36.0 [facility] Comment on above: Order Comment: Speci men Type: BLOOD SPECIMENOrdering Facility: [facility] Address: [address] [place] [address] Performed By: #### 5 8410-2 ####[facility] LABORATORYCLIA [id number] [address] MCV (RBC) [Entitic vol] 93.4 fL Normal 80.0-100.0 [facility] Comment on above: Order Comment: Speci men Type: BLOOD SPECIMENOrdering Facility: [facility] Address: [address] [place] [address] Performed By: #### 5 8410-2 ####[facility] LABORATORYCLIA [id number] [address] Nucleated RBC (Bld) [#/Vol] 10*3/uL Normal <0.01 [facility] Comment on above: Order Comment: Speci men Type: BLOOD SPECIMENOrdering Facility: [facility] Address: [address] [place] [address] Performed By: #### 5 8410-2 ####[facility] LABORATORYCLIA [id number] [address] Platelet mean volume (Bld) [Entitic vol] 10.6 fL Normal 9.0-12.7 [facility] Comment on above: Order Comment: Speci men Type: BLOOD SPECIMENOrdering Facility: [facility] Address: [address] [place] [address] Performed By: #### 5 8410-2 ####[facility] LABORATORYCLIA [id number] [address] Platelets (Bld) [#/Vol] 108 10*3/uL Low 150-400 [facility] Comment on above: Order Comment: Speci men Type: BLOOD SPECIMENOrdering Facility: [facility] Address: [address] [place] [address] Result Comment: No c lot detected Performed By: #### 5 8410-2 ####[facility] LABORATORYCLIA [id number] [address] RBC (Bld) [#/Vol] 3.93 10*6/uL Low 4.20-6.00 [facility] Comment on above: Order Comment: Speci men Type: BLOOD SPECIMENOrdering Facility: [facility] Address: [address] [place] [address] Performed By: #### 5 8410-2 ####[facility] LABORATORYCLIA [id number] [address] WBC (Bld) [#/Vol] 2.64 10*3/uL Low 3.70-11.00 [facility] Comment on above: Order Comment: Speci men Type: BLOOD SPECIMENOrdering Facility: [facility] Address: [address] [place] [address] Performed By: #### 5 8410-2 ####[facility]ORATORYCLIA [id number] [address] Comprehensive metabolic 2000 panelon 04-21-2022 Albumin [Mass/Vol] 3.0 g/dL Low 3.9-4.9 [facility] Comment on above: Order Comment: Speci men Type: BLOOD SPECIMENOrdering Facility: [facility] Address: [address] [place] [address] Performed By: #### 2 4323-8, ####[facility] LABORATORYCLIA [id number] [address] ALP [Catalytic activity/Vol] 80 U/L Normal 38-113 [facility] Comment on above: Order Comment: Speci men Type: BLOOD SPECIMENOrdering Facility: [facility] Address: [address] [place] [address] Performed By: #### 2 432-8, ####[facility] LABORATORYCLIA [id number] [address] ALT [Catalytic activity/Vol] 9 U/L Low 10-54 [facility] Comment on above: Order Comment: Speci men Type: BLOOD SPECIMENOrdering Facility: [facility] Address: [address] [place] [address] Performed By: #### 2 4328, ####[facility]ORATORYCLIA [id number] [address] Anion gap [Moles/Vol] 10 mmol/L Normal 9-18 [facility] Comment on above: Order Comment: Speci men Type: BLOOD SPECIMENOrdering Facility: [facility] Address: [address] [place] [address] Performed By: #### 2 432-8, ####[facility]ORATORYCLIA [id number] [address] AST [Catalytic activity/Vol] 20 U/L Normal 14-40 [facility] Comment on above: Order Comment: Speci men Type: BLOOD SPECIMENOrdering Facility: [facility] Address: [address] [address] Performed By: #### 2 4322-8, ####[facility] LABORATORYCLIA [id number] [place] [address] [place] Bilirubin [Mass/Vol] 0.3 mg/dL Normal 0.2-1.3 [facility] Comment on above: Order Comment: Speci men Type: BLOOD SPECIMENOrdering Facility: [facility] Address: [address] [address] Performed By: #### 2 8, ####[facility] LABORATORYCLIA [id number] [place] [address] [place] Calcium [Mass/Vol] 7.8 mg/dL Low 8.5-10.2 [facility] Comment on above: Order Comment: Speci men Type: BLOOD SPECIMENOrdering Facility: [facility] Address: [address] [address] Performed By: #### 2 8, ####[facility] LABORATORYCLIA [id number] [place] [address] [place] Chloride [Moles/Vol] 99 mmol/L Normal 97-105 [facility] Comment on above: Order Comment: Speci men Type: BLOOD SPECIMENOrdering Facility: [facility] Address: [address] [address] Performed By: #### 2 8, ####[facility] LABORATORYCLIA [id number] [place] [address] [place] CO2 [Moles/Vol] 21 mmol/L Low 22-30 [facility] Comment on above: Order Comment: Speci men Type: BLOOD SPECIMENOrdering Facility: [facility] Address: [address] [address] Performed By: #### 2 8, ####[facility]ORATORYCLIA [id number] [address] Creatinine [Mass/Vol] 0.61 mg/dL Low 0.73-1.22 [facility] Comment on above: Order Comment: Harvey burns Type: BLOOD SPECIMENOrdering Facility: [facility] Address: [address] [id number] Performed By: #### 2 4323-8, ####[facility] LABORATORYCLIA [id number] [address] [id number] [facility] ESTIMATED GLOMERULAR FILTRATION RATE 96 mL/min/1.73m??? Normal >=60 [facility] Comment on above: Order Comment: Harvey burns Type: BLOOD SPECIMENOrdering Facility: [facility] Address: [address] [place], [place] [address] Result Comment: Silvia mated Glomerular Filtration Rate [...] Performed By: #### 2 4323-8, ####[facility]ORATORYCLIA [id number] [address] Glucose [Mass/Vol] 65 mg/dL Low 74-99 [facility] Comment on above: Order Comment: Harvey burns Type: BLOOD SPECIMENOrdering Facility: [facility] Address: [address] [place], [place] [id number] Result Comment: The [place] Diabetes Association (ADA) provides guidance for cutoff [...] Standards of Medical Care in Diabetes 2016, [place] [employer]. Diabetes Care. 2016.39(Suppl 1). Performed By: #### 2 4322-12, ####[facility] LABORATORYCLIA [id number] [place] [address] [place] Potassium [Moles/Vol] 4.4 mmol/L Normal 3.7-5.1 [facility] Comment on above: Order Comment: Speci men Type: BLOOD SPECIMENOrdering Facility: [facility] Address: [address] [address] Performed By: #### 2 4322-12, ####[facility] LABORATORYCLIA [id number] [place] [address] [place] Protein [Mass/Vol] 5.8 g/dL Low 6.3-8.0 [facility] Comment on above: Order Comment: Speci men Type: BLOOD SPECIMENOrdering Facility: [facility] Address: [address] [place] [address] Performed By: #### 2 4322-12, ####[facility] LABORATORYCLIA [id number] [place] [address] [place] Sodium [Moles/Vol] 130 mmol/L Low 136-144 [facility] Comment on above: Order Comment: Speci men Type: BLOOD SPECIMENOrdering Facility: [facility] Address: [address] [place] [address] Performed By: #### 2 4322-12, ####[facility] LABORATORYCLIA [id number] [place] [address] [place] Urea nitrogen [Mass/Vol] 15 mg/dL Normal 9-24 [facility] Comment on above: Order Comment: Speci men Type: BLOOD SPECIMENOrdering Facility: [facility] Address: [address] [address] Performed By: #### 2 4322-12, ####[facility] LABORATORYCLIA [id number] [place] [address] [place] Magnesium SerPl-mCncon 04-21 Magnesium [Mass/Vol] 1.8 mg/dL Normal 1.7-2.3 [facility] Comment on above: Order Comment: Speci men Type: BLOOD SPECIMENOrdering Facility: [facility] Address: [address] [place] [address] Performed By: #### 2 4323-8, 45547-2 ####[facility]ORATORYCLIA [id number] [address] CBC panel Auto (Bld)on 04-20 Erythrocyte distribution width (RBC) [Ratio] 14.5 % Normal 11.5-15.0 [facility] Comment on above: Order Comment: Speci men Type: BLOOD SPECIMENOrdering Facility: [facility] Address: [address] [place] [address] Performed By: #### 5 8410-2 ####[facility] LABORATORYCLIA [id number] [address] Hematocrit (Bld) [Volume fraction] 33.9 % Low 39.0-51.0 [facility] Comment on above: Order Comment: Speci men Type: BLOOD SPECIMENOrdering Facility: [facility] Address: [address] [place] [address] Performed By: #### 5 8410-2 ####[facility]ORATORYCLIA [id number] [address] Hemoglobin (Bld) [Mass/Vol] 11.5 g/dL Low 13.0-17.0 [facility] Comment on above: Order Comment: Speci men Type: BLOOD SPECIMENOrdering Facility: [facility] Address: [address] [place] [address] Performed By: #### 5 8410-2 ####[facility] LABORATORYCLIA [id number] [address] MCH (RBC) [Entitic mass] 32.2 pg Normal 26.0-34.0 [facility] Comment on above: Order Comment: Speci men Type: BLOOD SPECIMENOrdering Facility: [facility] Address: [address] [place] [address] Performed By: #### 5 8410-2 ####[facility] LABORATORYCLIA [id number] [address] MCHC (RBC) [Mass/Vol] 33.9 g/dL Normal 30.5-36.0 [facility] Comment on above: Order Comment: Speci men Type: BLOOD SPECIMENOrdering Facility: [facility] Address: [address] [place] [address] Performed By: #### 5 8410-2 ####[facility] LABORATORYCLIA [id number] [address] MCV (RBC) [Entitic vol] 95.0 fL Normal 80.0-100.0 [facility] Comment on above: Order Comment: Speci men Type: BLOOD SPECIMENOrdering Facility: [facility] Address: [address] [place] [address] Performed By: #### 5 8410-2 ####[facility] LABORATORYCLIA [id number] [address] Nucleated RBC (Bld) [#/Vol] 10*3/uL Normal <0.01 [facility] Comment on above: Order Comment: Speci men Type: BLOOD SPECIMENOrdering Facility: [facility] Address: [address] [place] [address] Performed By: #### 5 8410-2 ####[facility] LABORATORYCLIA [id number] [address] Platelet mean volume (Bld) [Entitic vol] 11.1 fL Normal 9.0-12.7 [facility] Comment on above: Order Comment: Speci men Type: BLOOD SPECIMENOrdering Facility: [facility] Address: [address] [place] [address] Performed By: #### 5 8410-2 ####[facility] LABORATORYCLIA [id number] [address] Platelets (Bld) [#/Vol] 106 10*3/uL Low 150-400 [facility] Comment on above: Order Comment: Speci men Type: BLOOD SPECIMENOrdering Facility: [facility] Address: [address] [address] Performed By: #### 5 8410-2 ####[facility] LABORATORYCLIA [id number] [address] RBC (Bld) [#/Vol] 3.57 10*6/uL Low 4.20-6.00 [facility] Comment on above: Order Comment: Speci men Type: BLOOD SPECIMENOrdering Facility: [facility] Address: [address] [address] Performed By: #### 5 8410-2 ####[facility] LABORATORYCLIA [id number] [address] WBC (Bld) [#/Vol] 2.11 10*3/uL Low 3.70-11.00 [facility] Comment on above: Order Comment: Speci men Type: BLOOD SPECIMENOrdering Facility: [facility] [facility] Address: [address] [place] [address] Performed By: #### 5 8410-2 ####[facility]IA [id number] [address] Comprehensive metabolic 2000 panelon 04-20-2022 Albumin [Mass/Vol] 2.9 g/dL Low 3.9-4.9 [facility] Comment on above: Order Comment: Speci men Type: BLOOD SPECIMEN Ordering Facility: [facility] Address: [address] [place] [address] Performed By: #### 2 4323-8, #### [facility] CLIA [id number] [address] ALP [Catalytic activity/Vol] 72 U/L Normal 38-113 [facility] Comment on above: Order Comment: Speci men Type: BLOOD SPECIMEN Ordering Facility: [facility] Address: [address] [place] [address] Performed By: #### 2 4323-8, #### [facility] CLIA [id number] [address] ALT [Catalytic activity/Vol] 8 U/L Low 10-54 [facility] Comment on above: Order Comment: Speci men Type: BLOOD SPECIMEN Ordering Facility: [facility] Address: [address] [place] [address] Performed By: #### 2 8, #### [facility] CLIA [id number] 1000 [place] [address] [place] Anion gap [Moles/Vol] 10 mmol/L Normal 9-18 [facility] Comment on above: Order Comment: Speci men Type: BLOOD SPECIMEN Ordering Facility: [facility] Address: [address] [address] Performed By: #### 2 8, #### [facility] CLIA [id number] 1000 [place] [address] [place] AST [Catalytic activity/Vol] 18 U/L Normal 14-40 [facility] Comment on above: Order Comment: Speci men Type: BLOOD SPECIMEN Ordering Facility: [facility] Address: [address] [address] Performed By: #### 2 8, #### [facility] CLIA [id number] [address] [place] [address] [place] Bilirubin [Mass/Vol] 0.3 mg/dL Normal 0.2-1.3 [facility] Comment on above: Order Comment: Speci men Type: BLOOD SPECIMEN Ordering Facility: [facility] Address: [address] [address] Performed By: #### 2 8, #### [facility] CLIA [id number] [address] [place] [address] [place] Calcium [Mass/Vol] 7.6 mg/dL Low 8.5-10.2 [facility] Comment on above: Order Comment: Speci men Type: BLOOD SPECIMEN Ordering Facility: [facility] Address: [address] [place] [address] Performed By: #### 2 8, #### [facility] CLIA [id number] [address] Chloride [Moles/Vol] 101 mmol/L Normal 97-105 [facility] Comment on above: Order Comment: Harvey men Type: BLOOD SPECIMEN Ordering Facility: [facility] Address: [address] [place] [address] Performed By: #### 2 43238, #### [facility] CLIA [id number] [address] [place] CO2 [Moles/Vol] 20 mmol/L Low 22-30 [facility] Comment on above: Order Comment: Truei men Type: BLOOD SPECIMEN Ordering Facility: [facility] Address: [address] [place] [address] Performed By: #### 2 4328, #### [facility] CLIA [id number] [address] OF [facility] Creatinine [Mass/Vol] 0.62 mg/dL Low 0.73-1.22 [facility] Comment on above: Order Comment: Truei men Type: BLOOD SPECIMEN Ordering Facility: [facility] Address: [address] [place] [address] Performed By: #### 2 4322-12, #### [facility] CLIA [id number] [address] ESTIMATED GLOMERULAR FILTRATION RATE 96 mL/min/1.73m??? Normal >=60 [facility] Comment on above: Order Comment: Harvey men Type: BLOOD SPECIMEN Ordering Facility: [facility] Address: [address] [place] [address] Result Comment: Silvia mated Glomerular Filtration Rate [...] #### 2 4323-8, #### [facility] CLIA [id number] [address] [place] [address] [place] Glucose [Mass/Vol] 75 mg/dL Normal 74-99 [facility] Comment on above: Order Comment: Harvey burns Type: BLOOD SPECIMEN Ordering Facility: [facility] Address: [address] [place] [address] Result Comment: The [place] Diabetes Association (ADA) provides guidance for cutoff [...] Standards of Medical Care in Diabetes 2016, [place] [employer]. Diabetes Care. 2016.39(Suppl 1). Performed By: #### 2 43207-31, #### [facility] CLIA [id number] [address] [place] [address] [place] Potassium [Moles/Vol] 3.5 mmol/L Low 3.7-5.1 [facility] Comment on above: Order Comment: Harvey burns Type: BLOOD SPECIMEN Ordering Facility: [facility] Address: [address] [place] [address] Performed By: #### 2 43207-31, #### [facility] CLIA [id number] [address] [place] [address] [place] Protein [Mass/Vol] 5.3 g/dL Low 6.3-8.0 [facility] Comment on above: Order Comment: Harvey burns Type: BLOOD SPECIMEN Ordering Facility: [facility] Address: [address] [place] [address] Performed By: #### 2 4322-12, #### [facility] CLIA [id number] 1000 [place] [address] [place] Sodium [Moles/Vol] 131 mmol/L Low 136-144 [facility] Comment on above: Order Comment: Speci men Type: BLOOD SPECIMEN Ordering Facility: [facility] Address: [address] [place] [address] Performed By: #### 2 4323-8, #### [facility] CLIA [id number] [address] [place] [address] [place] Urea nitrogen [Mass/Vol] 16 mg/dL Normal 9-24 [facility] Comment on above: Order Comment: Speci men Type: BLOOD SPECIMEN Ordering Facility: [facility] Address: [address] [place] [address] Performed By: #### 2 4323-8, #### [facility] CLIA [id number] [address] STATES [place] Magnesium SerPl-mCncon 04-20 Magnesium [Mass/Vol] 1.8 mg/dL Normal 1.7-2.3 [facility] Comment on above: Order Comment: Speci men Type: BLOOD SPECIMEN Ordering Facility: [facility] Address: [address] [place] [address] Performed By: #### 2 4323-8, #### [facility] CLIA [id number] [address] [place] [address] [place] NURSING PROGon 04-20-2022 NURSING PROG HNO ID: [id number] Author: Kristal Beltran RN Service: ? Author Type: Registered Nurse Type: Nursing Progress Note Filed: 04/20/2022 5:18 AM Note Text: Other: 5:16 AM Med alert fired. Maximum dose of tylenol reached. It is scheduled for 1,000 mg every 8 hours. [facility] has been notified. Kristal Beltran RN [facility] ALLIED HEALTHon 04-19-2022 ALLIED HEALTH HNO ID: [id number] Author: Ashlyn Crisostomo RN Service: Infection Prevention [...] 19, 2022 TIME: 10:05 AM PAGER/CONTACT #: [phone] Infection Prevention after hours/weekend pager: Contact Nursing Vice President Business & Corporate Development [facility] Bacteria Ur Culton Bacteria identified Cx Nom (U) ORGANISM ID: 1 10,000 -<50,000 CFU/ml Normal urogenital marcelo [facility] Comment on above: Performed By: #### 6 30-4 ####[facility] [id number] [address] OF [facility] CASE MANAGEMon 04-19-2022 CASE MANAGEM HNO ID: [id number] Author: Leslie Partida RN Service: ? Author Type: Registered Nurse Type: Care Mgt Progress Note Filed: 04/19/2022 11:08 AM Note Text: CARE MANAGEMENT PROGRESS NOTE SERVICE DATE: 04/19/2022 SERVICE TIME: 10:58 AM LOS: 0 days CM called and spoke with contact Irena arteaga, she is requesting pt d/c to [facility] for rehab. She is to call pt to discuss with him. Pt not willing to speak with CM at this time. Referral sent. Pt now agreeable to [facility].. SIGNATURE: Leslie Partida RN PATIENT NAME: Dane Cueva [facility] DATE: April 19, 2022 TIME: 10:58 AM PAGER/CONTACT #: [phone] [facility] CBC panel Auto (Bld)on 04-19 Erythrocyte distribution width (RBC) [Ratio] 14.4 % Normal 11.5-15.0 [facility] Comment on above: Order Comment: Speci men Type: BLOOD SPECIMEN Ordering Facility: [facility] Address: [address] [place] [address] Performed By: #### 2 8, #### [facility] CLIA [id number] [address] Hematocrit (Bld) [Volume fraction] 39.6 % Normal 39.0-51.0 [facility] Comment on above: Order Comment: Speci men Type: BLOOD SPECIMEN Ordering Facility: [facility] Address: [address] [address] Performed By: #### 2 4322-12, #### [facility] CLIA [id number] [address] [place] Hemoglobin (Bld) [Mass/Vol] 13.3 g/dL Normal 13.0-17.0 [facility] Comment on above: Order Comment: Speci men Type: BLOOD SPECIMEN Ordering Facility: [facility] Address: [address] [place] [address] Performed By: #### 2 4322-12, #### [facility] CLIA [id number] [address] MCH (RBC) [Entitic mass] 31.4 pg Normal 26.0-34.0 [facility] Comment on above: Order Comment: Speci men Type: BLOOD SPECIMEN Ordering Facility: [facility] Address: [address] [place] [address] Performed By: #### 2 4322-12, #### [facility] CLIA [id number] [address] MCHC (RBC) [Mass/Vol] 33.6 g/dL Normal 30.5-36.0 [facility] Comment on above: Order Comment: Speci men Type: BLOOD SPECIMEN Ordering Facility: [facility] Address: [address] [place] [address] Performed By: #### 2 4322-12, #### [facility] CLIA [id number] [address] MCV (RBC) [Entitic vol] 93.6 fL Normal 80.0-100.0 [facility] Comment on above: Order Comment: Speci men Type: BLOOD SPECIMEN Ordering Facility: [facility] Address: [address] [place] [address] Performed By: #### 2 4328, #### [facility] CLIA [id number] [address] [place] Nucleated RBC (Bld) [#/Vol] 10*3/uL Normal <0.01 [facility] Comment on above: Order Comment: Speci men Type: BLOOD SPECIMEN Ordering Facility: [facility] Address: [address] [place] [address] Performed By: #### 2 8, #### [facility] CLIA [id number] [address] Platelet mean volume (Bld) [Entitic vol] 10.7 fL Normal 9.0-12.7 [facility] Comment on above: Order Comment: Speci men Type: BLOOD SPECIMEN Ordering Facility: [facility] Address: [address] [place] [address] Performed By: #### 2 4322-12, #### [facility] CLIA [id number] [address] Platelets (Bld) [#/Vol] 117 10*3/uL Low 150-400 [facility] Comment on above: Order Comment: Speci men Type: BLOOD SPECIMEN Ordering Facility: [facility] Address: [address] [place] [address] Result Comment: No c lot detected Performed By: #### 2 8, #### [facility] CLIA [id number] [address] RBC (Bld) [#/Vol] 4.23 10*6/uL Normal 4.20-6.00 [facility] Comment on above: Order Comment: Speci men Type: BLOOD SPECIMEN Ordering Facility: [facility] Address: [address] [place], [place] [address], [place] [address] Performed By: #### 2 4323-8, #### [facility] CLIA [id number] [address] [place] [id number] [facility] WBC (Bld) [#/Vol] 4.37 10*3/uL Normal 3.70-11.00 [facility] Comment on above: Order Comment: Speci men Type: BLOOD SPECIMEN Ordering Facility: [facility] Address: [place] [address] Performed By: #### 2 4323-8, #### [facility] CLIA [id number] 1000 [place] [address] [facility] CONSULTon 04-19-2022 CONSULT HNO ID: [id number] Author: Codie Mojica APRN.DIRECTOR OF MANAGED SERVICES Service: Wound/Ostomy Author Type: Nurse Practitioner Type: [...] INTRAVENOUS DIRECTED PRN remdesivir in NaCl 0.9% Vial-Mate/ADD-[place] 100 mg 275 mL 100 mg INTRAVENOUS q 24 HR NaCl 0.9% iv infusion 75 mL/hr INTRAVENOUS CONTINUOUS ALLERGIES No Known Allergies Objective PHYSICAL EXAM: BP 127/98 Pulse 63 Temp (Src) 97.6 (Tympanic) Resp 18 SpO2 95% O2 Therapy: Room Air General: Alert, no distress, cooperative, [place], thin, elderly male Musculoskeletal: Positive for weakness, [...] - Cleanse with NS. Apply silver alginate. [place] with silicone foam dressing. Change 3 times [...] found under the Get Images tab on [employer]. The purpose of the photo(s) is to optimize the patient's medical care and allow a visual a (more content not included)... Normal [facility] Comprehensive metabolic 2000 panelon 04-19-2022 Albumin [Mass/Vol] 3.6 g/dL Low 3.9-4.9 [facility] Comment on above: Order Comment: Speci men Type: BLOOD SPECIMENOrdering Facility: [facility] Address: [address] [id number] Performed By: #### 1 9123-9, 23543-4, VENICE ####[facility] [id number] [place] [address] [place] ALP [Catalytic activity/Vol] 94 U/L Normal 38-113 [facility] Comment on above: Order Comment: Speci men Type: BLOOD SPECIMENOrdering Facility: [facility] Address: [address] [id number] Performed By: #### 1 69239, 32695-3, VENICE ####[facility] [id number] [place] [address] [place] ALT [Catalytic activity/Vol] 9 U/L Low 10-54 [facility] Comment on above: Order Comment: Speci men Type: BLOOD SPECIMENOrdering Facility: [facility] Address: [address] [place] [address] Performed By: #### 1 239, , VENICE ####[facility] [id number] [place] [address] [place] Anion gap [Moles/Vol] 11 mmol/L Normal 9-18 [facility] Comment on above: Order Comment: Speci men Type: BLOOD SPECIMENOrdering Facility: [facility] Address: [address] [place] [address] Performed By: #### 1 9, , VENICE ####[facility] [id number] [place] [address] [place] AST [Catalytic activity/Vol] 19 U/L Normal 14-40 [facility] Comment on above: Order Comment: Speci men Type: BLOOD SPECIMENOrdering Facility: [facility] Address: [address] [place] [address] Performed By: #### 1 9, , VENICE ####[facility] [id number] [place] [address] [place] Bilirubin [Mass/Vol] 0.5 mg/dL Normal 0.2-1.3 [facility] Comment on above: Order Comment: Speci men Type: BLOOD SPECIMENOrdering Facility: [facility] Address: [address] [place] [address] Performed By: #### 1 23-9, , VENICE ####[facility] [id number] [place] [address] [place] Calcium [Mass/Vol] 8.3 mg/dL Low 8.5-10.2 [facility] Comment on above: Order Comment: Speci men Type: BLOOD SPECIMENOrdering Facility: [facility] Address: [address] [address] Performed By: #### 1 9123-9, 81423-4, VENICE ####[facility]CLIA [id number] [address] STATES [facility] Chloride [Moles/Vol] 96 mmol/L Low 97-105 [facility] Comment on above: Order Comment: Speci men Type: BLOOD SPECIMENOrdering Facility: [facility] Address: [address] [place] [address] Performed By: #### 1 9123-9, 86095-9, VENICE ####[facility] [id number] [place] [address] [place] CO2 [Moles/Vol] 26 mmol/L Normal 22-30 [facility] Comment on above: Order Comment: Speci men Type: BLOOD SPECIMENOrdering Facility: [facility] Address: [address] [place] [address] Performed By: #### 1 9123-9, 99395-0, VENICE ####[facility] [id number] [address] STATES OF [facility] Creatinine [Mass/Vol] 0.94 mg/dL Normal 0.73-1.22 [facility] Comment on above: Order Comment: Speci men Type: BLOOD SPECIMENOrdering Facility: [facility] Address: [address] [place] [address] Performed By: #### 1 9123-9, 34915-8, VENICE ####[facility] [id number] [address] ESTIMATED GLOMERULAR FILTRATION RATE 81 mL/min/1.73m??? Normal >=60 [facility] Comment on above: Order Comment: Speci men Type: BLOOD SPECIMENOrdering Facility: [facility] Address: [address] [place] [address] Result Comment: Silvia mated Glomerular Filtration Rate [...] actual GFR. Performed By: #### 1 9123-9, 70615-4, VENICE ####[facility] [id number] [place] [address] [place] Glucose [Mass/Vol] 82 mg/dL Normal 74-99 [facility] Comment on above: Order Comment: Harvey burns Type: BLOOD SPECIMENOrdering Facility: [facility] Address: [address] [place] [address] Result Comment: The [place] Diabetes Association (ADA) provides guidance for cutoff [...] Standards of Medical Care in Diabetes 2016, [place] [employer]. Diabetes Care. 2016.39(Suppl 1). Performed By: #### 1 9123-9, 94991-9, VENICE ####[facility] [id number] [place] [address] [place] Potassium [Moles/Vol] 4.3 mmol/L Normal 3.7-5.1 [facility] Comment on above: Order Comment: Harvey burns Type: BLOOD SPECIMENOrdering Facility: [facility] Address: [address] [address] Performed By: #### 1 9123-9, 26804-2, VENICE ####[facility] [id number] [place] [address] [place] Protein [Mass/Vol] 6.6 g/dL Normal 6.3-8.0 [facility] Comment on above: Order Comment: Harvey burns Type: BLOOD SPECIMENOrdering Facility: [facility] Address: [address] [address] Performed By: #### 1 9123-9, 41772-6, VENICE ####[facility] [id number] [place] [address] [place] Sodium [Moles/Vol] 133 mmol/L Low 136-144 [facility] Comment on above: Order Comment: Speci men Type: BLOOD SPECIMENOrdering Facility: [facility] Address: [address] [place] [address] Performed By: #### 1 9123-9, , VENICE ####[facility] [id number] [place] [address] [place] Urea nitrogen [Mass/Vol] 18 mg/dL Normal 9-24 [facility] Comment on above: Order Comment: Speci men Type: BLOOD SPECIMENOrdering Facility: [facility] Address: [address] [place] [address] Performed By: #### 1 9123-9, , VENICE ####[facility] [id number] [place] [address] [place] Magnesium SerPl-mCncon 04-19 Magnesium [Mass/Vol] 2.1 mg/dL Normal 1.7-2.3 [facility] Comment on above: Order Comment: Speci men Type: BLOOD SPECIMENOrdering Facility: [facility] Address: [address] [place] [address] Performed By: #### 1 9123-9, , VENICE ####[facility] [id number] [address] STATES [place] OCCULT BLD EXAM-DIAGon 04-19 OCCULT BLD EXAM-DIAG Negative Normal [facility] Comment on above: Performed By: #### O BDX ####[facility] [id number] [address] [place] THERAPY NTon 04-19-2022 THERAPY NT HNO ID: [id number] Author: Pradip Donahue OT/L Service: Occupational Therapy Author Type: Occupational Therapist Type: Therapy (PT/OT/Speech/Resp) Filed: 04/19/2022 10:38 AM Note Text: Occupational Therapy Evaluation SERVICE DATE: 04/19/2022 SERVICE TIME: 905 to 954 ROOM: [place] [address] Recommended Discharge Disposition: Subacute/SNF Recommended Discharge Disposition Due to: Patient requires daily, facility-based rehabilitation from at least one discipline due to:;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 Normal [facility] TROPONIN Ton 04-19-2022 Troponin T.cardiac [Mass/Vol] ug/L Normal 0.000-0.029 [facility] Comment on above: Order Comment: Speci men Type: BLOOD SPECIMENOrdering Facility: [facility] Address: [address] [place] [address] Performed By: #### 1 9123-9, 93961-9, VENICE ####[facility]ORYCLIA [id number] [address] URINALYSIS, REFLEX MICROSCOP ICon 04-19-2022 Bacteria LM.HPF (Urine sed) [#/Area] Rare Abnormal None Seen [facility] Comment on above: Order Comment: Speci men Type: BLOOD SPECIMEN Ordering Facility: [facility] Address: [address] [place] [address] Performed By: #### 2 8, #### [facility] CLIA [id number] [address] Bilirubin Ql (U) Negative Normal Negative [facility] Comment on above: Order Comment: Speci men Type: BLOOD SPECIMEN Ordering Facility: [facility] Address: [address] [place] [address] Performed By: #### 2 4322-12, #### [facility] CLIA [id number] [address] Clarity (Unsp spec) Clear Normal Clear [facility] Comment on above: Order Comment: Speci men Type: BLOOD SPECIMEN Ordering Facility: [facility] Address: [address] [place] [address] Performed By: #### 2 4322-12, #### [facility] CLIA [id number] [address] Color (U) Yellow Normal Yellow [facility] Comment on above: Order Comment: Speci men Type: BLOOD SPECIMEN Ordering Facility: [facility] Address: [address] [address] Performed By: #### 2 4322-12, #### [facility] CLIA [id number] [address] Glucose Test strip (U) [Mass/Vol] Negative Normal Negative [facility] Comment on above: Order Comment: Speci men Type: BLOOD SPECIMEN Ordering Facility: [facility] Address: [address] [place] [address] Performed By: #### 2 4322-12, #### [facility] CLIA [id number] [address] Hemoglobin Ql (U) Trace Abnormal Negative [facility] Comment on above: Order Comment: Speci men Type: BLOOD SPECIMEN Ordering Facility: [facility] Address: [address] [place] [address] Performed By: #### 2 8, #### [facility] CLIA [id number] [address] [place] Ketones Ql (U) Trace Abnormal Negative [facility] Comment on above: Order Comment: Speci men Type: BLOOD SPECIMEN Ordering Facility: [facility] Address: [address] [place] [address] Performed By: #### 2 4322-12, #### [facility] CLIA [id number] [address] Leukocyte esterase Test strip Ql (U) Negative Normal Negative [facility] Comment on above: Order Comment: Speci men Type: BLOOD SPECIMEN Ordering Facility: [facility] Address: [address] [place] [address] Performed By: #### 2 4322-12, #### [facility] CLIA [id number] [address] Nitrite Ql (U) Negative Normal Negative [facility] Comment on above: Order Comment: Speci men Type: BLOOD SPECIMEN [facility] [facility] Address: [address] [place] [address] Performed By: #### 2 4322-12, #### [facility] CLIA [id number] [address] OF [place] pH (U) 5.5 [pH] Normal 5.0-8.0 [facility] Comment on above: Order Comment: Speci men Type: BLOOD SPECIMEN Ordering Facility: [facility] Address: [address] [address] Performed By: #### 2 4322-12, #### [facility] CLIA [id number] [address] Protein (U) [Mass/Vol] Trace Abnormal Negative [facility] Comment on above: Order Comment: Speci men Type: BLOOD SPECIMEN Ordering Facility: [facility] Address: [address] [place] [address] Performed By: #### 2 4328, #### [facility] CLIA [id number] [address] [place] RBC LM.HPF (Urine sed) [#/Area] 0-3 /HPF Normal 0-3 /HPF [facility] Comment on above: Order Comment: Speci men Type: BLOOD SPECIMEN Ordering Facility: [facility] Address: [address] [place] [address] Performed By: #### 2 8, #### [facility] CLIA [id number] [address] Specific gravity (U) [Rel density] 1.025 Normal 1.005-1.030 [facility] Comment on above: Order Comment: Speci men Type: BLOOD SPECIMEN Ordering Facility: [facility] Address: [address] [place] [address] Performed By: #### 2 8, #### [facility] CLIA [id number] [address] Urobilinogen Ql (U) 0.2 EU/dL Normal 0.2-1.0 EU/dL [place] Comment on above: Order Comment: Speci men Type: BLOOD SPECIMEN Ordering Facility: [facility] Address: [address] [place] [address] Performed By: #### 2 8, #### [facility] CLIA [id number] [address] WBC LM.HPF (Urine sed) [#/Area] 0-5 /HPF Normal 0-5 /HPF [facility] Comment on above: Order Comment: Speci men Type: BLOOD SPECIMEN Ordering Facility: [facility] Address: [address] [place] [address] Performed By: #### 2 4323-8, 40459-7 #### [facility] CLIA [id number] [address] OF [facility] ALLIED HEALTHon 04-18-2022 ALLIED HEALTH HNO ID: [id number] Author: RT Teressa(R) Service: Radiology Author Type: [...] DATE: April 18, 2022 TIME: 12:18 AM [facility] CASE MGT INIT [place] 2021 CASE MGT INIT [place]H HNO ID: [id number] Author: Gabi Erwin RN Service: ? Author [...] Relation: Relative ADMISSION STATUS: Observation Insurance Provider: [employer] Property Manager NEEDS PRIOR TO DISCHARGE Needs Prior to Discharge: Accepting Facility;Home Care Order;Facility or Agency Choices;OT/PT Evaluation;Insurance Authorization;Other: See Comment;Discharge Transportation (medical clearance) POTENTIAL TRANSITION PLANS To Be Determined Based on clinical judgement, Care Management will address the following needs: Medical;Functional Patient's perception of need for this admission: Fall ADVANCE DIRECTIVES Current Advance Directive: None Milling Supervisor Attempted to Assist with AD Completion: Yes [...] discharge within 30 days: No PATIENT SCREEN 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 Address: [address] [place] [address] Performed By: #### 2 4328, #### [facility] CLIA [id number] [address] Hematocrit (Bld) [Volume fraction] 41.0 % Normal 39.0-51.0 [facility] Comment on above: Order Comment: Harvey burns Type: BLOOD SPECIMEN Ordering Facility: [facility] Address: [address] [place] [address] Performed By: #### 2 8, #### [facility] CLIA [id number] [address] OF [facility] Hemoglobin (Bld) [Mass/Vol] 13.9 g/dL Normal 13.0-17.0 [facility] Comment on above: Order Comment: Truei grant Type: BLOOD SPECIMEN Ordering Facility: [facility] Address: [address] [place] [address] Performed By: #### 2 4322-12, #### [facility] CLIA [id number] [address] STATES OF [facility] MCH (RBC) [Entitic mass] 31.7 pg Normal 26.0-34.0 [facility] Comment on above: Order Comment: Speci men Type: BLOOD SPECIMEN Ordering Facility: [facility] Address: [address] [place] [address] Performed By: #### 2 4322-12, #### [facility] CLIA [id number] [address] MCHC (RBC) [Mass/Vol] 33.9 g/dL Normal 30.5-36.0 [facility] Comment on above: Order Comment: Speci men Type: BLOOD SPECIMEN Ordering Facility: [facility] Address: [address] [address] Performed By: #### 2 4322-12, #### [facility] CLIA [id number] [address] MCV (RBC) [Entitic vol] 93.4 fL Normal 80.0-100.0 [facility] Comment on above: Order Comment: Speci men Type: BLOOD SPECIMEN Ordering Facility: [facility] Address: [address] [address] Performed By: #### 2 4322-12, #### [facility] CLIA [id number] [address] [place] Nucleated RBC (Bld) [#/Vol] 10*3/uL Normal <0.01 [facility] Comment on above: Order Comment: Speci men Type: BLOOD SPECIMEN Ordering Facility: [facility] Address: [address] [address] Performed By: #### 2 4322-12, #### [facility] CLIA [id number] [address] STATES [facility] Platelet mean volume (Bld) [Entitic vol] 10.7 fL Normal 9.0-12.7 [facility] Comment on above: Order Comment: Speci men Type: BLOOD SPECIMEN Ordering Facility: [facility] Address: [address] [address] Performed By: #### 2 4322-12, #### [facility] CLIA [id number] [address] Platelets (Bld) [#/Vol] 140 10*3/uL Low 150-400 [facility] Comment on above: Order Comment: Speci men Type: BLOOD SPECIMEN Ordering Facility: [facility] Address: [address] [place] [address] Performed By: #### 2 4322-12, #### [facility] CLIA [id number] [address] [place] RBC (Bld) [#/Vol] 4.39 10*6/uL Normal 4.20-6.00 [facility] Comment on above: Order Comment: Speci men Type: BLOOD SPECIMEN Ordering Facility: [facility] Address: [address] [place], [place] [id number] Performed By: #### 2 4323-8, 90783-4 #### [facility] CLIA [id number] [address] [place] [address] [facility] WBC (Bld) [#/Vol] 4.09 10*3/uL Normal 3.70-11.00 [facility] Comment on above: Order Comment: Speci men Type: BLOOD SPECIMEN Ordering Facility: [facility] Address: [address] [place] [address] Performed By: #### 2 4323-8, 38552-9 #### [facility] CLIA [id number] [address] OF [facility] CK SerPl-cCncon 04-18-2022 CK [Catalytic activity/Vol] 117 U/L Normal 51-298 [facility] Comment on above: Order Comment: Speci men Type: BLOOD SPECIMENOrdering Facility: [facility] Address: [address] [place] [address] Performed By: #### 3 016-3, 53197-6, 2157-6, VENICE, 1987- ####[facility] [id number] [address] OF [facility] CONSULTon 04-18-2022 CONSULT HNO ID: [id number] Author: Ankit Sheikh MD Service: Infectious Disease [...] generalized weakness and low back pain In [place] [facility] COVID PCR was positive Chest x-ray [...] COVID-19 original vaccine, age 12+ yr, monovalent ([employer] - IGNACIO TOP) 06/20/2021 COVID-19 original vaccine, age 12+ yr, monovalent ([employer] - PURPLE TOP) 10/17/2020 11/07/2020 01/02/2022 Influenza [...] (more content not included)... Normal [facility] CRP SerPl-mCncon 04-18-2022 CRP [Mass/Vol] 1.2 mg/dL High <0.9 [facility] Comment on above: Order Comment: Speci men Type: BLOOD SPECIMENOrdering Facility: [facility] Address: [address] [place], [place] [id number] Performed By: #### 3 016-3, 96883-5, 2157-6, VENICE, 1987- ####[facility] [id number] [place] [address] [facility] [place] [address] CHEST W IVCON PEon 2021 CT CHEST W IVCON PE * * *Final Report* * * DATE OF EXAM: Apr 18 2022 12:59AM [facility] 0540 - CT CHEST W IVCON PE [...] There are calcified granulomata in the spleen. It Program Engagement Director (topogram) images: No additional findings. IMPRESSION: No evidence for acute pulmonary embolism. Limited assessment of subsegmental pulmonary arteries. Mild mosaic attenuation pattern the lungs suggestive of small airways or small vessel disease. Air-fluid level in the esophagus suggestive of reflux. Age-indeterminate T12 vertebral body compression fracture. Additional findings as detailed. Director Cpg: AMANDA Transcribe Date/Time: Apr 18 2022 1:16A Dictated by : PRISCILLA IQBAL DO This examination was interpreted and the report reviewed and electronically signed by: PRISCILLA IQBAL DO on Apr 18 2022 1:30AM EST [id number] Normal [facility] Comprehensive metabolic 2000 panelon 04-18-2022 Albumin [Mass/Vol] 3.8 g/dL Low 3.9-4.9 [facility] Comment on above: Order Comment: Speci men Type: BLOOD SPECIMEN Ordering Facility: [facility] Address: [address] [address] Performed By: #### 2 4322-8, #### [facility] CLIA [id number] [address] [place] [address] [place] ALP [Catalytic activity/Vol] 103 U/L Normal 38-113 [facility] Comment on above: Order Comment: Speci men Type: BLOOD SPECIMEN Ordering Facility: [facility] Address: [address] [address] Performed By: #### 2 8, #### [facility] CLIA [id number] [address] [place] [address] [place] ALT [Catalytic activity/Vol] 9 U/L Low 10-54 [facility] Comment on above: Order Comment: Speci men Type: BLOOD SPECIMEN Ordering Facility: [facility] Address: [address] [address] Performed By: #### 2 8, #### [facility] CLIA [id number] [address] [place] [address] [place] Anion gap [Moles/Vol] 12 mmol/L Normal 9-18 [facility] Comment on above: Order Comment: Speci men Type: BLOOD SPECIMEN Ordering Facility: [facility] Address: [address] [address] Performed By: #### 2 8, #### [facility] CLIA [id number] [address] STATES [place] AST [Catalytic activity/Vol] 17 U/L Normal 14-40 [facility] Comment on above: Order Comment: Speci men Type: BLOOD SPECIMEN Ordering Facility: [facility] Address: [address] [address] Performed By: #### 2 8, #### [facility] CLIA [id number] [address] [place] [address] [place] Bilirubin [Mass/Vol] 0.6 mg/dL Normal 0.2-1.3 [facility] Comment on above: Order Comment: Speci men Type: BLOOD SPECIMEN Ordering Facility: [facility] Address: [address] [address] Performed By: #### 2 4328, #### [facility] CLIA [id number] [address] STATES OF [facility] Calcium [Mass/Vol] 8.5 mg/dL Normal 8.5-10.2 [facility] Comment on above: Order Comment: Speci men Type: BLOOD SPECIMEN Ordering Facility: [facility] Address: [address] [address] Performed By: #### 2 4328, #### [facility] CLIA [id number] [address] [place] [address] [place] Chloride [Moles/Vol] 91 mmol/L Low 97-105 [facility] Comment on above: Order Comment: Speci men Type: BLOOD SPECIMEN Ordering Facility: [facility] Address: [address] [address] Performed By: #### 2 4322-12, #### [facility] CLIA [id number] [address] [place] [address] [place] CO2 [Moles/Vol] 25 mmol/L Normal 22-30 [facility] Comment on above: Order Comment: Speci men Type: BLOOD SPECIMEN Ordering Facility: [facility] Address: [address] [address] Performed By: #### 2 4328, #### [facility] CLIA [id number] [address] [place] [address] [place] Creatinine [Mass/Vol] 0.70 mg/dL Low 0.73-1.22 [facility] Comment on above: Order Comment: Speci men Type: BLOOD SPECIMEN Ordering Facility: [facility] Address: [address] [address] Performed By: #### 2 43207-31, #### [facility] CLIA [id number] [address] [place] ESTIMATED GLOMERULAR FILTRATION RATE 93 mL/min/1.73m??? Normal >=60 [facility] Comment on above: Order Comment: Harvey burns Type: BLOOD SPECIMEN Ordering Facility: [facility] Address: [address] [place], [place] [id number] Result Comment: Silvia mated Glomerular Filtration Rate [...] GFR. Performed By: #### 2 4323-8, #### [facility] CLIA [id number] 1000 [place] [address] [place] Glucose [Mass/Vol] 80 mg/dL Normal 74-99 [facility] Comment on above: Order Comment: Harvey burns Type: BLOOD SPECIMEN Ordering Facility: [facility] Address: [address] [place], [place] [phone] Result Comment: The [place] Diabetes Association (ADA) provides guidance for cutoff [...] Standards of Medical Care in Diabetes 2016, [place] [employer] Association. Diabetes Care. 2016.39(Suppl 1). Performed By: #### 2 4323-8, #### [facility] CLIA [id number] [address] [id number] [place] Potassium [Moles/Vol] 3.7 mmol/L Normal 3.7-5.1 [facility] Comment on above: Order Comment: Harvey burns Type: BLOOD SPECIMEN Ordering Facility: [facility] Address: [address] [place], [place] [phone] Performed By: #### 2 4323, #### [facility] CLIA [id number] [address] [place] [address] [place] Protein [Mass/Vol] 6.9 g/dL Normal 6.3-8.0 [facility] Comment on above: Order Comment: Speci men Type: BLOOD SPECIMEN Ordering Facility: [facility] Address: [address] [place] [address] Performed By: #### 2 4322-12, #### [facility]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 Nurse Practitioner Type: Progress Notes Filed: 04/21/2022 12:15 PM Note Text: DEPARTMENT OF HOSPITAL MEDICINE PROGRESS NOTE SERVICE DATE: 04/21/2022 SERVICE TIME: 12:12 PM Hospital Medicine/Primary Attending: Jena Youngblood MD NIGHT AND WEEKEND COVERAGE: [employer]OVERAGE: Days: [phone], please page attending physician. Nights: [phone], please page [place] [facility] Night coverage pager [phone]. Subjective CC: Fall INTERVAL HPI: - Resting [...] and recommending SNF- awaiting pre cert to [facility] - Avoid narcotics as they alter [...] Giv (more content not included)... [facility] 04-20-2022 Note HNO ID: [id number] Author: France Beck APRN.CNP Service: Hospital Medicine Author Type: Nurse Practitioner Type: Progress Notes Filed: 04/20/2022 1:03 PM Note Text: DEPARTMENT OF HOSPITAL MEDICINE PROGRESS NOTE SERVICE DATE: 04/20/2022 SERVICE TIME: 1:01 PM Hospital Medicine/Primary Attending: Jena Youngblood MD NIGHT AND WEEKEND COVERAGE: [employer] COVERAGE: Days: [phone], please page attending physician. Nights: [phone], please page [facility]ager [phone]. Subjective CC: Fall INTERVAL HPI: - Resting [...] INTRAVENOUS DIRECTED PRN remdesivir in NaCl 0.9% Vial-Mate/ADD-[place] 100 mg 275 mL 100 mg INTRAVENOUS [...] and recommending SNF- awaiting pre cert to [facility] - Avoid narcotics as they alter [...] infe (more content not included)... [facility] 04-19-2022 Note HNO ID: [id number] Author: France Beck APRN.CNP Service: Hospital Medicine Author Type: Nurse Practitioner Type: Progress Notes Filed: 04/19/2022 1:10 PM Note Text: DEPARTMENT OF HOSPITAL MEDICINE PROGRESS NOTE SERVICE DATE: 04/19/2022 SERVICE TIME: 10:31 AM Hospital Medicine/Primary Attending: Jessica Edge MD NIGHT AND WEEKEND COVERAGE: [employer]OVERAGE: Days: [phone], please page attending physician. Nights: [phone], please page [place] [facility] Night coverage pager [phone]. Subjective CC: Fall INTERVAL HPI: - Resting [...] INTRAVENOUS DIRECTED PRN remdesivir in NaCl 0.9% Vial-Mate/ADD-[place] 100 mg 275 mL 100 mg INTRAVENOUS [...] and recommending SNF- awaiting pre cert to [facility] - Avoid narcotics as they altered [...] Antic (more content not included)... [facility] 04-18-2022 Note HNO ID: [id number] Author: Isaias Abbasi PA-C Service: Hospital Medicine Author Type: Physician Office Rep Type: Progress Notes Filed: 04/18/2022 11:41 AM Note Text: DEPARTMENT OF HOSPITAL MEDICINE PROGRESS NOTE SERVICE DATE: 04/18/2022 SERVICE TIME: 11:35 AM Hospital Medicine/Primary Attending: Jessica Edge MD NIGHT AND WEEKEND COVERAGE: [employer]: Days: [phone], please page attending physician. Nights: [phone], please page [place] [facility] Night coverage pager [phone]. Subjective INTERVAL HPI: -pt admitted after mechanical [...] Non-Pharmacologi (more content not included)... [facility] 02-28-2022 Miscellaneous Notes Formattin g of this note might be different from the original. Please schedule follow up visit. Last appointment: 11/03/20 Next appointment: N/A Pharmacy verified in [facility]. Refill(s) requested: Requested Prescriptions Pending Prescriptions Disp Refills lisinopril (ZESTRIL, PRINIVIL) 20 mg tablet [Pharmacy Med Name: LISINOPRIL 20 MG TABLET] 90 tablet 1 Sig: TAKE 1 TABLET BY MOUTH EVERY DAY Order(s) pended. Please advise. Bryanna Bailey MA, ROTARY DRILL RIG OPERATOR documented in this encounter [facility] 12-25-2021 Miscellaneous Notes Last appointment: 11/03/20 Next appointment: n/a Pharmacy verified in [facility]. Refill(s) requested: Pending Prescriptions Disp Refills TAMSULOSIN 0.4 MG CAPSULE 180 capsule 1 Sig: TAKE 2 CAPSULES BY MOUTH EVERY DAY PARI: Yes Order(s) pended. Please advise. Cynthia Maria Ma ROTARY DRILL RIG OPERATOR documented in this encounter [facility] 09-17-2021 Miscellaneous Notes Pharmacy verified in [facility]. Patient has been identified by name and [...] Balbina Reid MA documented in this encounter [facility] 02-26-2021 History of Past i llness Narrative Problem Noted Date Resolved Date Aftercare 02/26/2021 03/05/2021 Neutrophilic leukocytosis 07/17/20162016 documented as of this encounter (statuses as of 09/17/2021) [facility]10-04-2021 History of Past illness Narrative* Problem Noted Date Resolved Date Aftercare 02/26/2021 03/05/2021 Neutrophilic leukocytosis 07/17/20162016 documented as of this encounter (statuses as of 12/25/2021) [facility] History of Past illness Narrative* Problem Noted Date Resolved Date Aftercare 02/26/2021 03/05/2021 Neutrophilic leukocytosis 07/17/20162016 documented as of this encounter (statuses as of 02/28/2022) [facility] note* Diagnosis Essential hypertension Unspecified essential hypertension [facility] Diagnosis Benign prostatic hyperplasia with nocturia [facility] Diagnosis Essential hypertension Unspecified essential hypertension documented in this encounter [facility] Summary Purpose Family History No Family History Records FoundNo Family History Records FoundNo Family History Records FoundNo Family History Records Found Advance Directives No Advanced Directives Records FoundDocuments on File Type Date Recorded Patient Thread Spooler Expl anation Advance Directive(s) 09/16/2021 8:03 PM [...] Documents on File Type Date Recorded Patient Thread Spooler Expl anation Advance Directive(s) 09/29/2021 3:36 PM [...] section and content) DATE CREATED AUTHOR 03/01/2019 [place] [facility] DATE CREATED AUTHOR AUTHOR'S ORGANIZ ATION 04/24/2022 [facility] DATE CREATED AUTHOR AUTHOR'S ORGANIZ ATION 05/24/2022 [facility] DATE CREATED AUTHOR AUTHOR'S ORGANIZ ATION 05/06/2023 [facility] Comments (unrecognize d section and content) In the event this informatio n is protected by the Federal Confidentiality of Alcohol and Drug Abuse Patient Records regulations: The Federal rules restrict any use of the information to criminally investigate or prosecute any alcohol or drug abuse patient.[facility] event this information is protected by the Federal Confidentiality of Alcohol and Drug Abuse Patient Records regulations: The Federal rules restrict any use of the information to criminally investigate or prosecute any alcohol or drug abuse patient.[facility] the event this information is protected by the Federal Confidentiality of Alcohol and Drug Abuse Patient Records regulations: The Federal rules restrict any use of the information to criminally investigate or prosecute any alcohol or drug abuse patient.[facility] Reason for Visit (unrecogniz ed section and content) Reason Comments Refill Request Care Teams (unrecognized sec tion and content) Data Mining Analyst Relationship Specialty Start Date End Date Ella Flores DO [address] [place] [address] Referring Family Practice 03/07/21 Ella Flores DO [address] [place] [address] Home Care Physician Family Practice 03/07/21 Data Mining Analyst Relationship Specialty Start Date End Date Ella Flores DO [address] [place] [address] Referring Family Practice 03/07/21 Ella Flores DO [address] [place] [address] Home Care Physician Family Practice 03/07/21 Data Mining Analyst Relationship Specialty Start Date End Date Ella Flores, DO [address] [place] [address] Referring Family Medicine 03/07/21 Ella Flores DO [address] [place] [address] Home Care Provider Family Medicine 03/07/21 FOR [...] BE BASED ON THE PRIMARY CLINICAL RECORDS. [facility]. provides no warranty or guarantee of the accuracy or completeness of information in this document.
[2025-02-01 02:29] LABS: Troponin T High Sens 2 HR 384 ng/L (<=22)
--- NOTE | 2025-02-01 02:34 | EKG12_ITS ---
Test Reason : NSTEMI Blood Pressure : */* mmHG Vent. Rate : 65 BPM Atrial Rate : 65 BPM P-R Int : 220 ms QRS Dur : 94 ms QT Int : 404 ms P-R-T Axes : * -40 123 degrees QTcB Int : 420 ms Sinus rhythm with 1st degree A-V block Left axis deviation ST & T wave abnormality, consider anterolateral ischemia Abnormal ECG When compared with ECG of 01-Feb-2025 00:12, MANUAL COMPARISON REQUIRED DATA IS UNCONFIRMED Confirmed by Zion Stokes ([id number]), newspaper editor managing ROHAN SALINAS ([id number]) on 02/01/2025 10:16:39 AM Referred By: Confirmed By: Zion Stokes
[2025-02-01 04:55] LABS: Hematocrit 40.1 % (40-54); Hemoglobin 13.9 g/dL (13.0-16.5); Immature Granulocytes Count 0.050 X10^3/uL (0.0-0.0); Mean Corp Hgb Conc 34.7 g/dL (32-36); Mean Corpuscular Volume 89.3 fL (80-94); Mean Platelet Vol. 10.1 fl (6.2-12.0); NRBC Flagged by Analyzer 0 % (0-5); Platelet Count 162 K/mm3 (150-450); RBC Distribution Width CV 14.3 % (11.6-14.6); RBC Distribution Width SD 46.5 fl (35.1-43.9); Red Blood Count 4.49 M/mm3 (4.6-6.2); White Blood Count 6.6 K/mm3 (4.4-11.0)
[2025-02-01 05:05] LABS: Prothrombin Time (Protime)PT. 14.3 SECONDS (11.7-14.9)
[2025-02-01 05:09] LABS: Partial Thromboplast Time 114.7 Seconds (24.1-36.2)
[2025-02-01 05:14] LABS: Troponin T High Sens 4 HR 2728 ng/L (<=22)
[2025-02-01 05:32] LABS: Anion Gap 14 (5-15); BUN 9 mg/dL (4-19); BUN/Creat Ratio 11.9 RATIO (10-20); Calcium,Total 9.0 mg/dL (7.6-11.0); Carbon Dioxide 19.5 mmol/L (21.0-32.0); Chloride 98 mmol/L (98-108); Estimated Creatinine Clearance 47.25 ml/min (50-250); Glucose 118 mg/dL (70-99); Magnesium 2.3 mg/dL (1.5-2.2); Potassium 4.3 mmol/L (3.3-5.1)
--- NOTE | 2025-02-01 06:19 | NURSING ---
POP Waite pt was called at home and updated on plan of care and plan for heart cath. She stated she will be in to talk with the docs and the pt.
--- NOTE | 2025-02-01 07:33 | PCM.PN.HOSP ---
Reason for Visit Chief Complaint: Chest pain Objective Data Objective Data Vital Signs: Vital Signs Temp Pulse Resp BP Pulse Ox O2 Del Method 97.8 F 71 16 168/99 H 98 Room Air 02/01/25 06:25 02/01/25 06:25 02/01/25 06:25 02/01/25 06:25 02/01/25 06:25 02/01/25 06:25 Oxygen Delivery Method Room Air Weight: 107 lb 2.314 oz Body Mass Index (BMI) 17.2 Intake & Output: Intake and Output for Last 24 Hours 01/30/25 01/31/25 02/01/25 23:59 23:59 23:59 Intake Total 34.65 / 34.65 Balance 34.65 / 34.65 Lab / Micro Data 02/01/25 04:45 02/01/25 04:45 Labs: Laboratory Results - last 24 hr 02/01/25 00:17: WBC 7.5, RBC 4.75, Hgb 14.4, Hct 43.4, MCV 91.4, MCH 30.3, MCHC 33.2, RDW Std Deviation 48.5 H, RDW Coeff of Tez 14.4, Plt Count 173, MPV 9.6, Immature Gran % (Auto) 0.800, Neut % (Auto) 79.6 H, Lymph % (Auto) 9.4 L, [place] % (Auto) 8.8, Eos % (Auto) 0.9, Baso % (Auto) 0.5, Absolute Neuts (auto) 5.9, Absolute Lymphs (auto) 0.70 L, Nucleated RBC % 0, PT 13.5, INR 1.0, APTT 35.6, Sodium 132 L, Potassium 4.5, Chloride 96 L, Carbon Dioxide 23.4, Anion Gap 12, BUN 9, Creatinine 0.80, Estim Creat Clear Calc 51.43, Est GFR (MDRD) Non-Af 87, BUN/Creatinine Ratio 11.3, Glucose 136 H, Calcium 9.4, Troponin T High Sens 145 H* 02/01/25 02:06: Troponin T Hi Sens 2 Hr 384 H* 02/01/25 04:45: WBC 6.6, RBC 4.49 L, Hgb 13.9, Hct 40.1, MCV 89.3, MCH 31.0, MCHC 34.7, RDW Std Deviation 46.5 H, RDW Coeff of Tez 14.3, Plt Count 162, MPV 10.1, Immature Gran % (Auto) 0.800, Neut % (Auto) 73.1 H, Lymph % (Auto) 16.1 L, [place] % (Auto) 8.9, Eos % (Auto) 0.6, Baso % (Auto) 0.5, Absolute Neuts (auto) 4.9, Absolute Lymphs (auto) 1.07, Nucleated RBC % 0, PT 14.3, INR 1.1, APTT 114.7 H*, Sodium 131 L, Potassium 4.3, Chloride 98, Carbon Dioxide 19.5 L, Anion Gap 14, BUN 9, Creatinine 0.75, Estim Creat Clear Calc 47.25 L, Est GFR (MDRD) Non-Af 89, BUN/Creatinine Ratio 11.9, Glucose 118 H, Calcium 9.0, Phosphorus 2.9, Magnesium 2.3 H, Troponin T Hi Sens 4Hr 2728 H* Radiography Diagnostic Testing: Radiology Impression Chest X-Ray 02/01/25 00:30 IMPRESSION: As above. Reading Location: [facility] Rhythm Strip Rhythm Strip: Sinus Rhythm Rate: 65 Ectopy: None Physical Exam Narrative Seen and examined. Patient had chest pain and shortness of breath last night. Currently chest pain-free. Going for heart cath. Diagnosis of non-STEMI with high troponin. Physical exam General: Alert, Oriented x3, Cooperative HEENT: Atraumatic, PERRLA, EOMI, Normocephalic. Oral: No Gingival or Mucosal Lesions/ Ulcerations Neck: Supple, No JVD, Negative Carotid Bruits Chest wall/Lungs: Air entry diminished in bilateral lung bases. No crepitation/rhonchi Cardiovascular: Regular rate and rhythm, systolic murmur present Abdomen: Bowel Sounds Present, Soft, Non Tender, Non-Distended : No dysuria. No renal angle tenderness. No suprapubic tenderness. Extremities: No edema, Capillary Refill Less than 3 Seconds Skin: No rashes, No breakdown Musculoskeletal: No Tenderness to Palpation of Joints or Extremities Neurological: Cranial nerves II-XII grossly intact, DTR 2+/4. No acute focal neurological deficit. Psych/Mental Status: Normal Affect, Appropriate. Assessment & Plan Assessment/Plan (1) Non-ST elevation AR (NSTEMI): (2) Major depressive disorder, recurrent, unspecified: (3) Legal blindness, as defined in [place]: (4) Essential (primary) hypertension: PLAN: Plan 84-year-old gentleman was admitted from detention for 4 to 4.5 hours of chest heaviness, persistent, 3/10 intensity, retrosternal without radiation. Later on pain resolved in the ED. He denied dyspnea, nausea, diaphoresis. 1. non-ST elevation AR?admit patient to progressive care unit, consult cardiology for heart catheterization in the morning, make patient n.p.o. pending heart catheterization, will add nitroglycerin, oxygen as needed for chest pain at this time patient is chest pain-free Troponins are high 145, 334 and 2728. Twelve-lead EKG patient has ST elevation of less than 1 mm in lead I and aVL with reciprocal depression in inferior lead and V1-V4. 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 LVEF 40 to 45%, 60 to 65% ostial LMCA, subtotal proximal LAD, ostial D1 90%, 80% proximal ramus, 80% mid RCA. Transferred to tertiary care immediate for either CABG versus PCI LAD/D1 bifurcation, mid RCA. Patient is high risk PCI and is not operative candidate for CABG. Therefore patient is being transferred to tertiary care [facility] for high risk PCI. [employer], Dr. Stokes talk to eligibility counselor Dr. Buckner and he accepted the patient. Transfer paperwork signed 2. History of depression, anxiety and dementia?continue routine home medications when the patient is able to take p.o. medication 3. Essential hypertension 4. Chronic iron deficiency anemia 5. History of repeated fall: PT and OT ordered. Patient also has history of oropharyngeal dysphagia, speech therapy evaluation ordered 4. DVT prophylaxis? on heparin drip already for NSTEMI CODE STATUS?full code verified in discussion with patient Charges/Coding Visit Charges Inpatient E&M: 34418 Subs Hosp L2
--- NOTE | 2025-02-01 07:43 | PCM.CONS.C ---
Assessment & Plan Assessment/Plan (1) Non-ST elevation ID (NSTEMI): PLAN: Patient's initial ECG showed ST elevation in lead aVL with ST depression in the inferior leads. This resolved and subsequent tracings. Enzymes are positive in the 2700 range. Currently the patient is asymptomatic he remains on heparin aspirin nitroglycerin paste and ticagrelor. Given the patient's desire to pursue further evaluation and treatment invasively I recommend the patient undergo a left heart catheterization. The procedure risk/benefit and alternatives were explained to the patient in detail he voiced understanding and agrees to proceed. Dr. Leon will be performing the procedure this morning. (2) Essential (primary) hypertension: PLAN: Patient's blood pressure remains elevated in the 160?170 systolic range. Recommend adding ARB therapy to his medical regiment as this will assist with LV healing. Losartan 50 mg every morning added to his meds. (3) Legal blindness, as defined in [place]: PLAN: Patient has macular degeneration. PLAN: Plan 1. Proceed with left heart catheterization this morning. 2. Continue aspirin and ticagrelor. 3. Add losartan 50 mg every morning to the medical regimen. 4. Further recommendations pending the outcome of the catheterization. HPI Consult Data Date of Consult: 02/01/25 HPI Narrative Reason for Consultation: Chest pain with positive enzymes. HPI Narrative: DANE MARTINEZ, is a 84 M who presents to the [facility] emergency department with a chief complaint of chest discomfort. The initial symptoms started about 4-1/2 hours prior to presentation. He lives in an extended care facility. The patient does not have any prior history of coronary artery disease this is the first episode of chest pain to his knowledge. He does have a history of being legally blind and major depressive disorder. Patient's initial ECG showed transient ST elevation in lead aVL and slightly in lead I with reciprocal depressions in the inferior leads which resolved. Initial troponin was 145 delta troponin 384, and third troponin 2728. The patient now on denies any chest discomfort. His initial chest pain was rated 3 out of 10. The patient has no history of significant anemia or renal insufficiency. Labs were unremarkable. I did discuss the situation with the patient in detail he request full code and doing what ever is necessary. He also agrees with CPR and intubation as indicated. Patient does have a history of repeated falls and hypertension. His loss of visual acuity is secondary to macular degeneration. ECG this morning shows that his ST changes have resolved. He does request catheterization to define his coronary anatomy. [facility] Medical History Personal history of COVID-19 Benign prostatic hyperplasia with lower urinary tract symptoms Bilateral inguinal hernia without obstruction or gangrene Essential (primary) hypertension Anemia, unspecified Repeated falls Muscle weakness (generalized) Generalized anxiety disorder Major depressive disorder, recurrent, unspecified Dementia in other diseases classified elsewhere, mild, with anxiety Abnormal weight loss Other specified hearing loss, unspecified ear Legal blindness, as defined in [place] Exudative age-related macular degeneration, right eye, stage unspecified Insomnia, unspecified Hypo-osmolality and hyponatremia Vitamin B12 deficiency anemia, unspecified Iron deficiency anemia, unspecified Difficulty in walking, not elsewhere classified Other fci (current) drug therapy Encounter for screening for depression Dysphagia, oropharyngeal phase Unspecified dementia, moderate, with agitation Home Medications ?Medication ?Instructions ?Recorded ?Last Taken ?Type acetaminophen 500 mg tablet 500 mg PO Q6H PRN fever or pain 02/01/25 Unknown History (Acetaminophen Extra Strength) bisacodyl 10 mg rectal suppository 10 mg AR DAILY PRN constipation 02/01/25 Unknown History (Dulcolax (bisacodyl)) cholecalciferol (vitamin D3) 50 50 mcg PO DAILY 02/01/25 Unknown History mcg (2,000 unit) capsule cyanocobalamin (vitamin B-12) 500 500 mcg PO DAILY 02/01/25 Unknown History mcg tablet lidocaine HCl 4 % topical pads 1 pad topical DAILY PRN PRN pain 02/01/25 Unknown History magnesium hydroxide 400 mg/5 mL 30 ml PO DAILY PRN constipation 02/01/25 Unknown History oral suspension (Milk of Magnesia) potassium chloride 10 mEq 10 meq PO DAILY 02/01/25 Unknown History tablet,extended release sertraline 25 mg tablet 25 mg PO QHS 02/01/25 Unknown History sertraline 50 mg tablet 50 mg PO DAILY 02/01/25 Unknown History tamsulosin 0.4 mg capsule 0.8 mg PO QHS 02/01/25 Unknown History Allergy/AdvReac Type Severity Reaction Status Date / Time No Known Allergies Allergy Verified 02/01/25 00:12 Social History housing: long-term Smoking Status: Never smoker additional social history: ambulates w/ walker ROS Constitutional Constitutional: Reports as per HPI Eyes Eyes: Reports as per HPI ENT HEENT: Reports systems reviewed and no addt'l complaints, except as documented Cardiovascular Cardiovascular: Reports as per HPI Respiratory/Chest Respiratory/Chest: Reports as per HPI Gastrointestinal Gastrointestinal: Reports systems reviewed and no addt'l complaints, except as documented Genitourinary Genitourinary: Reports as per HPI Musculoskeletal Musculoskeletal: Reports as per HPI Integumentary Integumentary: Reports systems reviewed and no addt'l complaints, except as documented Neurologic Neurologic: Reports as per HPI Psychiatric Psychiatric: Reports as per HPI Endocrine Endocrinology: Reports systems reviewed and no addt'l complaints, except as documented Hematologic/Lymphatic Hematologic/Lymphatic: Reports as per HPI Allergic/Immunologic Allergic/Immunologic: Reports systems reviewed and no addt'l complaints, except as documented Physical Exam Narrative Frail elderly appearing white male resting in recumbent position in bed. Const alert and oriented x3 HEENT normocephalic Eyes EOMs intact bilaterally Neck no JVD and no carotid bruits Chest Chest Narrative: Thin chest Resp normal respiratory effort Auscultation: diminished lung sounds bilateral lower Cardio Rate: regular rate Rhythm: regular rhythm Heart Sounds: S1 normal and S2 normal; Negative for click, gallop or murmur Peripheral Pulses: radial pulses present bilateral 2+ and femoral pulses present bilateral 2+ (No bruits) GI normal to inspection, nondistended, normoactive bowel sounds Extremity no pedal edema Neuro Neuro Narrative: Alert and oriented x 3 Psych mental status grossly normal Charges/Coding Visit Charges Inpatient E&M: 61273 Init Hosp L2 Objective Data Vital Signs: Vital Signs Temp Pulse Resp BP Pulse Ox O2 Del Method 97.8 F 71 16 168/99 H 98 Room Air 02/01/25 06:25 02/01/25 06:25 02/01/25 06:25 02/01/25 06:25 02/01/25 06:25 02/01/25 06:25 Oxygen Delivery Method Room Air Weight: 107 lb 2.314 oz Body Mass Index (BMI) 17.2 Intake & Output: Intake and Output for Last 24 Hours 01/30/25 01/31/25 02/01/25 23:59 23:59 23:59 Intake Total 34.65 / 34.65 Balance 34.65 / 34.65 Lab / Micro Data Attestation: I reviewed the patient's lab results. 02/01/25 04:45 02/01/25 04:45 Labs: Laboratory Results - last 24 hr 02/01/25 00:17: WBC 7.5, RBC 4.75, Hgb 14.4, Hct 43.4, MCV 91.4, MCH 30.3, MCHC 33.2, RDW Std Deviation 48.5 H, RDW Coeff of Tez 14.4, Plt Count 173, MPV 9.6, Immature Gran % (Auto) 0.800, Neut % (Auto) 79.6 H, Lymph % (Auto) 9.4 L, [place] % (Auto) 8.8, Eos % (Auto) 0.9, Baso % (Auto) 0.5, Absolute Neuts (auto) 5.9, Absolute Lymphs (auto) 0.70 L, Nucleated RBC % 0, PT 13.5, INR 1.0, APTT 35.6, Sodium 132 L, Potassium 4.5, Chloride 96 L, Carbon Dioxide 23.4, Anion Gap 12, BUN 9, Creatinine 0.80, Estim Creat Clear Calc 51.43, Est GFR (MDRD) Non-Af 87, BUN/Creatinine Ratio 11.3, Glucose 136 H, Calcium 9.4, Troponin T High Sens 145 H* 02/01/25 02:06: Troponin T Hi Sens 2 Hr 384 H* 02/01/25 04:45: WBC 6.6, RBC 4.49 L, Hgb 13.9, Hct 40.1, MCV 89.3, MCH 31.0, MCHC 34.7, RDW Std Deviation 46.5 H, RDW Coeff of Tez 14.3, Plt Count 162, MPV 10.1, Immature Gran % (Auto) 0.800, Neut % (Auto) 73.1 H, Lymph % (Auto) 16.1 L, [place] % (Auto) 8.9, Eos % (Auto) 0.6, Baso % (Auto) 0.5, Absolute Neuts (auto) 4.9, Absolute Lymphs (auto) 1.07, Nucleated RBC % 0, PT 14.3, INR 1.1, APTT 114.7 H*, Sodium 131 L, Potassium 4.3, Chloride 98, Carbon Dioxide 19.5 L, Anion Gap 14, BUN 9, Creatinine 0.75, Estim Creat Clear Calc 47.25 L, Est GFR (MDRD) Non-Af 89, BUN/Creatinine Ratio 11.9, Glucose 118 H, Calcium 9.0, Phosphorus 2.9, Magnesium 2.3 H, Troponin T Hi Sens 4Hr 2728 H* Rhythm Strip Rhythm Strip: Sinus Rhythm Rate: 65 Ectopy: None Cardiology Labs/Tests 02/01/25 00:17: WBC 7.5, RBC 4.75, Hgb 14.4, Hct 43.4, MCV 91.4, MCH 30.3, MCHC 33.2, Plt Count 173, MPV 9.6, Immature Gran % (Auto) 0.800, Neut % (Auto) 79.6 H, Lymph % (Auto) 9.4 L, [place] % (Auto) 8.8, Eos % (Auto) 0.9, Baso % (Auto) 0.5, Absolute Neuts (auto) 5.9, Nucleated RBC % 0, PT 13.5, INR 1.0, APTT 35.6, Sodium 132 L, Potassium 4.5, Chloride 96 L, Carbon Dioxide 23.4, Anion Gap 12, BUN 9, Creatinine 0.80, Est GFR (MDRD) Non-Af 87, BUN/Creatinine Ratio 11.3, Glucose 136 H, Calcium 9.4 02/01/25 04:45: WBC 6.6, RBC 4.49 L, Hgb 13.9, Hct 40.1, MCV 89.3, MCH 31.0, MCHC 34.7, Plt Count 162, MPV 10.1, Immature Gran % (Auto) 0.800, Neut % (Auto) 73.1 H, Lymph % (Auto) 16.1 L, [place] % (Auto) 8.9, Eos % (Auto) 0.6, Baso % (Auto) 0.5, Absolute Neuts (auto) 4.9, Nucleated RBC % 0, PT 14.3, INR 1.1, APTT 114.7 H*, Sodium 131 L, Potassium 4.3, Chloride 98, Carbon Dioxide 19.5 L, Anion Gap 14, BUN 9, Creatinine 0.75, Est GFR (MDRD) Non-Af 89, BUN/Creatinine Ratio 11.9, Glucose 118 H, Calcium 9.0, Phosphorus 2.9, Magnesium 2.3 H Rhythm: EKG: ECHO: Stress Test: Cardiac Cath: PCI: CT Surgery: Holter monitor: EPS: PPM: CXR: Chest CT Scan: Radiography Diagnostic Testing: Radiology Impression Chest X-Ray 02/01/25 00:30 IMPRESSION: As above. Reading Location: [facility] MARIEL Risk Score for UA/STEMI Assesmment (YES = 1) Risk Stratification Applicable: Yes Age > or = 65: Yes > or = 3 CAD risk factors (HTN, Hypercholesterolemia, Diabetes, family hx, current smoker): No Known CAD (Stenosis > or = 50%): No ASA used in past 7 days: No Severe angina (> or = 2 episodes in 24 hrs): Yes EKG ST change > or = 0.5mm: Yes Positive cardiac markers: Yes Score MARIEL Risk Score of mortality/ recurrent ischemic event over the next 14 days: 4 = 19.9% - Intermediate
--- NOTE | 2025-02-01 09:59 | CASEMGMT ---
Tertiary facilities in-network with patient's insurance: [facility], [facility], [facility], [facility], [facility], [facility]
--- NOTE | 2025-02-01 10:05 | CASEMGMT ---
Discharge Planning Desiree Love updated that pt will transfer to [facility]. Requested copy of advanced directives. Anita Ochoa DC Planning Asst.
--- NOTE | 2025-02-01 12:09 | CASEMGMT ---
Health Care POA rec'd from [facility] and given to for review. Anita Ochoa DC Planning Asst.
--- NOTE | 2025-02-01 12:21 | CL.D_ITS ---
Patient Name: DANE MARTINEZ Study Date: 02/01/2025 Performing: Fracisco Leon MD Ht: 66 inches 167.64 cm : 1940 Wt: 107.3 lbs 48.6 kg Age: 84 Gender: male BSA: 1.53 PROCEDURE(S) PERFORMED [id number])LHC/COR/LV CLINICAL PROFILE AND INDICATIONS Indications: ACS <= 24 hrs Heart Failure: None Stress/Imaging Stress/Image Study Performed: No Angina Classification Anginal Classification w/in 2 Weeks: CCS IV CAD Presentations: Non-STEMI. Symptom onset Date/Time: 01/31/2025 Time Not Available CONCLUSIONS 60-65% ostial LMCA Sub-total Prox LAD, ostial D1 90% 80% Prox Ramus 80% Mid RCA LVEF 40-45% RECOMMENDATIONS Transfer to [facility] for CABG vs PCI to LAD/D1 bifurcation, Mid RCA +/- Ostial LMCA DESCRIPTION OF PROCEDURE The patient arrived to the procedure lab. The risks and benefits of the procedure as well as a full description of our services here and current unavailability of surgical backup were fully explained to the patient and/or their significant other prior to the catheterization. The Timeout was completed, verifying the correct patient and procedure. The patient's procedural site was prepped and draped in the usual fashion. Local anesthetic was given subcutaneously to right radial region with Lidocaine 2%. Using a modified Seldinger technique, arterial access was obtained via the right radial artery, a 6Fr sheath was inserted. Left Coronary Artery selective angiography was performed in multiple views using a 5 Fr. 4.0 [place] catheter. Right Coronary Artery selective angiography was then performed in multiple views using a 5 Fr. 4.0 [place] catheter. Left Ventriculography was performed in BRAVO projection using a 5 Fr. Pig[place] catheter. LV to AO pullback pressures were then recorded.The arterial sheath was pulled and a TR Band was applied for hemostasis 10cc air CORONARY ANGIOGRAPHY DOMINANCE: Right Dominant LEFT HEART ASSESSMENT Left Ventricular Ejection Fraction: by LV Gram 40 % Mid anterior severe hypokinesis to akinesis LVEDP: 22 mmHg LEFT MAIN: 60-65% ostial LEFT MAIN: Tubular 65% Ostial lesion in LMCA LEFT ANTERIOR DESCENDING ARTERY: LAD: Calcified 99% Proximal lesion in LAD DIAGONAL 1: Calcified 90% Ostial lesion in DIAG1 RAMUS: Tubular 80% Proximal lesion in Ramus RIGHT CORONARY ARTERY: RCA: Calcified 80% Mid lesion in RCA COLLATERAL FLOW: Collateral flow from DIAG1 to LAD COMPLICATIONS No Complications PROCEDURE MEDICATIONS Fentanyl 25 mcg IV Versed 0.5 mg IV Oxygen: 2 L/min via nasal cannula Baby Aspirin (81mg) 1 Tabs PO @ 02/01/2025 08:48:36 Heparin given IA 02/01/2025 09:00:15 Verapamil 2.5mg, Ntg 200mcgs, 2000 units of Heparin given IA 02/01/2025 09:00:15 IV Bolus: .9 NaCl 250 ml total 02/01/2025 09:16:34 SUMMARY OF HEMODYNAMIC DATA Time AIR REST ECG 08:44:03 AO 73/50 (60) SA 09:04:34 LV 92/10, 15 09:12:04 LV 91/10, 15 09:12:12 LV 96/17, 22 09:14:11 LVp 95/15, 21 09:14:15 AOp 0/0 (47) 09:14:22 Signed By Fracisco Leon MD On 02/01/2025 12:20:18 Fracisco Leon MD
[2025-02-01 12:50] LABS: Partial Thromboplast Time 45.7 Seconds (24.1-36.2)
[2025-02-01 21:37] LABS: Partial Thromboplast Time 43.4 Seconds (24.1-36.2)
--- NOTE | 2025-02-01 22:15 | NURSING ---
update called to jenni solo.
[2025-02-02 02:00] VITALS: BP 99/64; PULSE 63; RESP 18; TEMP 36.6; O2SAT 94
--- NOTE | 2025-02-02 02:58 | NURSING ---
update called to damaris angel/zion
--- NOTE | 2025-02-02 20:56 | DS.PCM_ITS ---
Providers Date of Admission: 02/01/25 Date of Discharge: 02/02/25 Primary Care Physician: Dr. Laly Cason MD Consultations 02/01/25 02:31 Consult: Cardiology Routine Consulting Provider: Fracisco Leon Reason for Consult: Non-ST elevation FL EMERGENT Consult: Yes MD Notified: Yes Date Notified: 02/01/25 Time Notified: 01:42 Method of Notification: ED Physician Initiated Reason For Visit: NON-ST ELEVATION FL Diagnosis Discharge Diagnosis (1) Non-ST elevation FL (NSTEMI): Status: Acute Code(s): I21.4 - Non-ST elevation (NSTEMI) myocardial infarction (2) Major depressive disorder, recurrent, unspecified: Status: Acute Code(s): F33.9 - Major depressive disorder, recurrent, unspecified (3) Legal blindness, as defined in [place]: Status: Acute Code(s): H54.8 - Legal blindness, as defined in [place] (4) Essential (primary) hypertension: Status: Acute Code(s): I10 - Essential (primary) hypertension Plan 84-year-old gentleman was admitted from [facility] for 4 to 4.5 hours of chest heaviness, persistent, 3/10 intensity, retrosternal without radiation. Later on pain resolved in the ED. He denied dyspnea, nausea, diaphoresis. 1. non-ST elevation FL?admit patient to progressive care unit, consult cardiology for heart catheterization in the morning, make patient n.p.o. pending heart catheterization, will add nitroglycerin, oxygen as needed for chest pain at this time patient is chest pain-free Troponins are high 145, 334 and 2728. Twelve-lead EKG patient has ST elevation of less than 1 mm in lead I and aVL with reciprocal depression in inferior lead and V1-V4. 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 LVEF 40 to 45%, 60 to 65% ostial LMCA, subtotal proximal LAD, ostial D1 90%, 80% proximal ramus, 80% mid RCA. Transferred to tertiary care [facility] for either CABG versus PCI LAD/D1 bifurcation, mid RCA. Patient is high risk PCI and is not operative candidate for CABG. Therefore patient is being transferred to tertiary care center [facility] for high risk PCI. Direct Marketing Representative, Dr. Stokes talk to executive assistant to general counsel Dr. Buckner and he accepted the patient. Transfer paperwork signed. Patient was discharged to [facility] in hemodynamically stable condition. 2. History of depression, anxiety and dementia?continue routine home medications when the patient is able to take p.o. medication 3. Essential hypertension 4. Chronic iron deficiency anemia 5. History of repeated fall: PT and OT ordered. Patient also has history of oropharyngeal dysphagia, speech therapy evaluation ordered 4. DVT prophylaxis? on heparin drip already for NSTEMI CODE STATUS?full code verified in discussion with patient Medications at Discharge Home Medications acetaminophen 500 mg tablet (Acetaminophen Extra Strength) 500 mg PO Q6H PRN fever or pain 02/01/25 bisacodyl 10 mg rectal suppository (Dulcolax (bisacodyl)) 10 mg [place] DAILY PRN constipation 02/01/25 cholecalciferol (vitamin D3) 50 mcg (2,000 unit) capsule 50 mcg PO DAILY 02/01/25 cyanocobalamin (vitamin B-12) 500 mcg tablet 500 mcg PO DAILY 02/01/25 lidocaine HCl 4 % topical pads 1 pad topical DAILY PRN PRN pain 02/01/25 magnesium hydroxide 400 mg/5 mL oral suspension (Milk of Magnesia) 30 ml PO DAILY PRN constipation 02/01/25 potassium chloride 10 mEq tablet,extended release 10 meq PO DAILY 02/01/25 sertraline 25 mg tablet 25 mg PO QHS 02/01/25 sertraline 50 mg tablet 50 mg PO DAILY 02/01/25 tamsulosin 0.4 mg capsule 0.8 mg PO QHS 02/01/25 Physical Exam Narrative The patient was transferred to [facility] about 2 AM on 02/02/2025, that is before the start of my shift therefore Patient was seen and examined on 02/02/2025 Weight / BMI Weight Weight: 107 lb 2.314 oz Body Mass Index (BMI) 17.2 ABG / Lab / Microbiology Data 02/01/25 04:45 02/01/25 04:45 D/C Instructions DC O2, CPAP, BIPAP Needs Home O2 Discharge instructions: No Meaningful Use Info Meaningful Use Meaningful Use Diagnoses (Choose all that apply): None applicable Discharge Plan Admission Admit Date/Time: 02/01/25 01:40 Primary Reason for Your Visit: chest pain Attending Provider: Kun Petty Primary Care Provider: Laly Cason Consulting Providers: Fracisco Leon; Zoltan Bateman Discharge Orders/Prescriptions Prescriptions: No Action potassium chloride 10 mEq tablet extended release 10 meq PO DAILY sertraline 25 mg tablet 25 mg PO QHS tamsulosin 0.4 mg capsule 0.8 mg PO QHS sertraline 50 mg tablet 50 mg PO DAILY bisacodyl [Dulcolax (bisacodyl)] 10 mg suppository 10 mg [place] DAILY PRN (Reason: constipation) lidocaine HCl 4 % pads, medicated 1 pad topical DAILY PRN PRN (Reason: pain) magnesium hydroxide [Milk of Magnesia] 400 mg/5 mL suspension 30 ml PO DAILY PRN (Reason: constipation) acetaminophen [Acetaminophen Extra Strength] 500 mg tablet 500 mg PO Q6H PRN (Reason: fever or pain) cyanocobalamin (vitamin B-12) 500 mcg tablet 500 mcg PO DAILY cholecalciferol (vitamin D3) 50 mcg (2,000 unit) capsule 50 mcg PO DAILY Referrals / Follow Up: Sha Hancock MD [Non-Staff] - Laly Cason MD [Primary Care Provider] - Disposition Disposition (needs filled in before D/C Order can be placed): Acute Care Hospital Charges/Coding Visit Charges Inpatient E&M: [id number] Disch Hosp >30min
== END 2025-02-02 02:22 | disposition short-term general hospital (02) | DRG 281 ==
LOC: ED 00:59 → PCU 01:51
PROVIDERS: Admitting Provider Family Medicine; Emergency Provider Emergency Medicine; PCP Internal Medicine Geriatric Medicine; Visit Provider Internal Medicine
DX: I21.4 Non-ST elevation (NSTEMI) myocardial infarction (principal); F33.9 Major depressive disorder, recurrent, unspecified; D50.9 Iron deficiency anemia, unspecified; I10 Essential (primary) hypertension; H35.30 Unspecified macular degeneration; H54.8 Legal blindness, as defined in USA; Z86.16 Personal history of COVID-19; Z79.899 Other long term (current) drug therapy
CPT/HCPCS: 36415; 71045; 80048; 83735; 84100; 84484; 85025; 85610; 85730; 93005; 93458; 97162; 97166; 97802; 99152; 99153; 99285; Q9967; A4216; C1769; C1894